=== PATIENT | female | born 1945 | race Caucasian/White ===

== ENCOUNTER → 2025-09-17 | Outpatient (CLI) | payer OTHER, SELFPAY ==
--- OUTSIDE RECORDS SUMMARY | 2025-09-17 06:48 | XMS RPT_ITS | CCD ---
Author Organization [facility] Care Team Providers Care Umbrella Tipper Name Role Phone ANIBAL CARTER Primary Care Physician [phone] Unavailable Primary Care Provider UnavailANIBAL Brumfield Primary Care Physician [phone] ZAINAB WILD MD Attending Unavailable ANIBAL CARTER Primary Care Unavailable ANIBAL CARTER Primary Care Unavailable ANIBAL CARTER Attending Unavailable ANIBAL CARTER Attending Unavailable ANIBAL CARTER Primary Care Unavailable ANIBAL CARTER Primary Care Unavailable ANIBAL CARTER Attending Unavailable ANIBAL CARTER Primary Care Unavailable ANIBAL CARTER Attending Unavailable STAICA STEWART MD Attending Unavailable ANIBAL CARTER Primary Care Unavailable ANIBAL QUIÑONES Referring Unavailable STACIA STEWART Primary Care Unavailable ANIBAL QUIÑONES Referring Unavailable STACIA STEWART Primary Care Unavailable Stacia Stewart MD Primary Care Provider [phone] ANIBAL CARTER Attending Unavailable ANIBAL CARTER Primary Care Unavailable Kathy Lovell Attending Provider ANIBAL CARTER Attending Unavailable ANIBAL CARTER Primary Care Unavailable ANIBAL CARTER Attending Unavailable ANIBAL CARTER Primary Care Unavailable ZAINAB WILD MD Attending Unavailable ANIBAL CARTER Primary Care Unavailable Kathy Jacobs Attending Unavailable Mica Araujo Attending Unavailable Mica Araujo Attending Unavailable Allergies Allergy Classification Reported Allergen(s) Allergy Type Date of Onset Reaction(s) Facility (8 sources) Bee/Wasp/Ant venom Allergy to [facility] Medications Current Medications Medication Drug Class(es) Dates Sig (Normalized) Sig (Original) aspirin 81 mg delayed release oral tablet (4 sources) Platelet Aggregation Inhibitor, Nonsteroidal Anti-inflammatory Drug Start: 05-10-2023 aspirin 81 mg oral delayed release tablet Dose : 81 mg = 1 tab(s), Oral, Daily, 0 Refill(s) Start Date: 05/10/23 Status: Ordered latanoprost 0.05 mg/ml ophthalmic solution (7 sources) Prostaglandin Analog Start: 05-10-2023 take 1 drop(s) into the eye(s) at bedtime latanoprost 0.005% ophthalmic solution INSTILL 1 DROP INTO EACH EYE AT BEDTIME Start Date: 05/10/23 Status: Ordered Medication Dispense Status: Completed Total Allowed Fills: 1 Fills Dispensed: 0 Magnesium (1 source) Start: 02-13-2021 Magnesium 250 mg tablet Dose : 250 mg = 1 tab(s), Oral, qDay, 0 Refill(s) Start Date: 02/13/21 Status: Ordered Multivitamin preparation (8 sources) Start: 02-13-2021 take 1 tablet by mouth once daily Multivitamin Dose = 1 tab(s), Oral, Daily, 0 Refill(s) Start Date: 02/13/21 Status: Ordered Medication Dispense Status: Completed Total Allowed Fills: 1 Fills Dispensed: 0 Start: 02-13-2021 take 1 tablet by francisco javier th once daily Multivitamin Dose = 1 tab(s), Oral, Daily, 0 Refill(s) Start Date: 02/13/21 Status: Ordered Repeat number: 1 Start: 02-13-2021 take 1 tablet by francisco javier th once daily Multivitamin Dose = 1 tab(s), Oral, Daily, 0 Refill(s) Start Date: 02/13/21 Status: Ordered Turmeric extract (8 sources) Start: 05-19-2021 turmeric 1000 mg oral capsule Dose : 1,000 mg = 1 cap(s), Oral, Daily, 0 Refill(s) Start Date: 05/19/21 Status: Ordered Medication Dispense Status: Completed Total Allowed Fills: 1 Fills Dispensed: 0 Start: 05-19-2021 turmeric 1000 mg oral capsule Dose : 1,000 mg = 1 cap(s), Oral, Daily, 0 Refill(s) Start Date: 05/19/21 Status: Ordered Repeat number: 1 Start: 05-19-2021 turmeric 1000 mg oral capsule Dose : 1,000 mg = 1 cap(s), Oral, Daily, 0 Refill(s) Start Date: 05/19/21 Status: Ordered vitamin b12 1 mg oral tablet (1 source) Vitamin B12 Start: 05-19-2021 Vitamin B12 10 00 mcg oral tablet Dose : 1,000 mcg = 1 tab(s), Oral, qDay, # 30 tab(s), 0 Refill(s) Start Date: 05/19/21 Status: Ordered Vitamin B12 1000 mcg oral tablet (7 sources) Start: 05-19-2021 Vitamin B12 10 00 mcg oral tablet Dose : 1,000 mcg = 1 tab(s), Oral, qDay, # 30 tab(s), 0 Refill(s) Start Date: 05/19/21 Status: Ordered Medication Dispense Status: Completed Quantity: 30.0 Unit: tab(s) Total Allowed Fills: 1 Fills Dispensed: 0 Start: 05-19-2021 Vitamin B12 10 00 mcg oral tablet Dose : 1,000 mcg = 1 tab(s), Oral, qDay, # 30 tab(s), 0 Refill(s) Start Date: 05/19/21 Status: Ordered Quantity: 30.0 Unit: tab(s) Repeat number: 1 Start: 05-19-2021 Vitamin B12 10 00 mcg oral tablet Dose : 1,000 mcg = 1 tab(s), Oral, qDay, # 30 tab(s), 0 Refill(s) Start Date: 05/19/21 Status: Ordered Vitamin D3 (8 sources) Start: 02-13-2021 Vitamin D3 Dos e : 1,000 unit(s) = 1 tab(s), Oral, Daily, 0 Refill(s) Start Date: 02/13/21 Status: Ordered Medication Dispense Status: Completed Total Allowed Fills: 1 Fills Dispensed: 0 Start: 02-13-2021 Vitamin D3 Dos e : 1,000 unit(s) = 1 tab(s), Oral, Daily, 0 Refill(s) Start Date: 02/13/21 Status: Ordered Repeat number: 1 Start: 02-13-2021 Vitamin D3 Dos e : 1,000 unit(s) = 1 tab(s), Oral, Daily, 0 Refill(s) Start Date: 02/13/21 Status: Ordered Completed/Discontinued Medications Medication Drug Class(es) Dates Sig (Normalized) Sig (Original) fluorouracil 50 mg/ml topical cream (1 source) Nucleoside Metabolic Inhibitor Start: 5 Fluorouracil 5 % cream Discontinued 1 NMA TOPICAL TWICE A DAY July 19, 2025 12:00am methylPREDNISolone 4 mg oral tablet (1 source) Corticosteroid Start: 5 Methylprednisolone 4 mg tablets,dose pack Discontinued mg PO As Directed July 19, 2025 12:00am Xarelto Starter Pack 15 mg-20 mg oral kit (1 source) Start: 1 End: 1 Xarelto Starter Pack 15 mg-20 mg oral kit Take as directed on pack, Oral, Daily, Take as directed on pack, # 1 packet(s), 0 Refill(s), Pharmacy: [id number], 155, cm, 02/13/21 1:18:00 EDT, Height, 58.8, kg, 02/13/21 1:18:00 EDT, Dosing Weight Start Date: 02/14/21 Stop Date: 03/16/21 Status: Ordered Problems Problem Classification Problem Date Documented Da te Episodic/Chronic Biliary tract disease (1 source) Calculus of gallbladder without cholecystitis without obstruction; Translations: [Calculus of gallbladder without cholecystitis without obstruction] Onset: 08-01-2025 Episodic Conduction disorders (7 sources) Left bundle branch block 05-10-2023 Chronic Diverticulosis and diverticulitis (1 source) Diverticulosis of large intestine without perforation or abscess without bleeding; Translations: [Diverticulosis of large intestine without perforation or abscess without bleeding] Onset: 08-01-2025 Chronic Genitourinary symptoms and ill-defined conditions (2 sources) Dysuria; Translations: [Dysuria] Onset: 09-04-2024 Episodic Heart valve disorders (8 sources) Mitral valve regurgitation 05-19-2021 Chronic Other diseases of bladder and urethra (1 source) Other specified disorders of bladder; Translations: [Other specified disorders of bladder] Onset: 08-01-2025 Chronic Other gastrointestinal disorders (1 source) Abdominal distension (gaseous); Translations: [Abdominal distension (gaseous)] Onset: 08-01-2025 Episodic Other liver diseases (1 source) Hepatomegaly, not elsewhere classified; Translations: [Hepatomegaly, not elsewhere classified] Onset: 08-01-2025 Episodic Other nervous system disorders (1 source) Anesthesia of skin; Translations: [Anesthesia of skin] Onset: 08-24-2025 Episodic Other nervous system disorders (1 source) Paresthesia of skin; Translations: [Paresthesia of skin] Onset: 08-24-2025 Episodic Other screening for suspected conditions (not mental disorders or infectious disease) (1 source) Encounter for screening mammogram for malignant neoplasm of breast; Translations: [Encounter for screening mammogram for malignant neoplasm of breast] Onset: 07-04-2024 Episodic Peripheral and visceral atherosclerosis (1 source) Atherosclerosis of aorta; Translations: [Atherosclerosis of aorta] Onset: 08-01-2025 Chronic Pulmonary heart disease (8 sources) Pulmonary embolism 05-19-2021 Episodic Spondylosis; intervertebral disc disorders; other back problems (2 sources) Spondylosis without myelopathy or radiculopathy, site unspecified; Translations: [Spondylosis, unspecified] Onset: 08-01-2025 Chronic Unclassified (2 sources) Encounter for general examination without complaint, suspected or reported diagnosis; Translations: [Encounter for general examination without complaint, suspected or reported diagnosis] Onset: 05-04-2023 Urinary tract infections (2 sources) Urinary tract infection, site not specified; Translations: [Urinary tract infection, site not specified] Onset: 08-13-2023 Episodic Varicose veins of lower extremity (1 source) Asymptomatic varicose veins of unspecified lower extremity; Translations: [Asymptomatic varicose veins of unspecified lower extremity] Onset: 08-24-2025 Episodic Results Test Name Value Interpretation Reference Range Facility Legal Billing Clerk Office Visit Reporton 09-13-2025 Legal Billing Clerk Office Visit Report [facility] [address], [address] [place] [address] OFFICE VISIT Date of Service: 09/13/25 MR#: [id number] Acct: [id number] Name: STACY OLIVO Rep #: [id number] : 1945 Provider: Dr. Mica owen MD Age/Sex: 80/F Location: [facility] Status: Signed Intake Vital Signs 09/13/25 15:36 Height 5 ft 1 in Weight: 132 lb 6 oz BMI 25.0 BP 178/96 H Intake Visit Reasons: Surgical Consult (PPA) *per Honeycomb Decapper Required: No Is patient in pain?: No Allergies No Known Allergies Allergy (Verified 09/13/25 15:12) Medications ???Medication ???Instructions ???Recorded ???Confirmed ???Type calcium 300 mg-D3 20 mcg-magnesium 1 tab PO QDAY 09/13/25 09/13/25 History 25 mg-coppr 0.5 zz-sewa-xzby tablet iron PO .every other day 09/13/25 Hist ory latanoprost 0.005 % eye drops 1 drp ophthalmic (eye) QPM 5 09/13/25 History wipkvvss-aejddluw-apihn acid 240 tab PO 09/13/25 09/13/25 History mcg-vit K1 150 mcg-herb 357 tablet (Alive Women's 50 Plus Ultra Multivitamin) redimind natural cognitive enhancer PO 09/13/25 History turmeric 400 mg capsule mg PO 09/13/25 09/13/25 History Is last menstrual period known: No Post menopausal: Yes Patient : No : No PFSH Medical History (Updated 09/13/25 @ 16:[address] Mica Araujo MD) Ganglion cyst Heart valve problem Tumors GERD (gastroesophageal reflux disease) Osteopenia Low calcium levels Glaucoma Gallstones Carpal tunnel syndrome Cataracts, bilateral Breast lump Pulmonary embolism UTI (urinary tract infection) Ankle fracture Arthritis Hx of heart valve insufficiency Surgical History (Updated 09/13/25 @ 15:25 by Kassandra Jean) History of bladder suspension procedure History of left oophorectomy Hx of removal of ovary Family History (Updated 09/13/25 @ 15:18 by Kassandra Jean) Mother Anemia Arthritis Glaucoma Brother Heart disease Hypertension Social History (Updated 09/13/25 @ 15:36 by Kassandra Jean) household members: spouse Smoking Status: Never smoker alcohol intake: current alcohol intake frequency: holidays/special occasions only substance use type: does not use what type of physical activity do you participate in: walking and swimming additional social history: Monica HPI Surgical Consult (PPA) *per Details: HPI: The patient is an 80-year-old female with a history of endometrial thickening, pulmonary embolism, and heart valve problem presenting for evaluation of endometrial thickening. Endometrial Thickening - Referred for evaluation of endometrial thickening. - Recent sonogram ordered by primary care provider, NIKHIL Acosta, revealed thickening of the endometrial lining. - Denies any vaginal bleeding or abnormal discharge. - Denies any bowel complaints, including nausea, vomiting, bloating, diarrhea, or constipation. - Denies any bladder issues, including burning on urination, pain on urination, or leaking. - Denies any swelling in the legs. 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 - Denies any chest pain or shortness of breath. - Denies any history of blood clotting disorders. Past Medical History - Endometrial Thickening - Pulmonary Embolism - Heart Valve Problem - Ankle Fracture Past Surgical History - Oophorectomy: One ovary removed due to benign tumors. - - D C: Multiple procedures during infertility treatment. Obstetric History - A0 - Three children: One adopted, one vaginal delivery, one . Family History - Denies family history of similar benign tumors. 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 - Spends 6 months of the year in [place]. 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 Normal [facility] US PELVIS NON-OB W/TRANSVAGI NALon 08-08-2025 US PELVIS NON-OB W/TRANSVAGINAL ORIGINAL EXAMINATION: Ultrasound pelvis, 08/07/2025 10:23 am transabdominal and transvaginal COMPARISON: CT 08/01/2025 TECHNIQUE: This report is based on interpretation of permanently recorded ultrasound images. HISTORY: ORDERING SYSTEM PROVIDED HISTORY: Reason for Exam: ENDOMETRIAL THICKENING ON CT SCAN, 80-year-old postmenopausal patient FINDINGS: The uterus is 6.3 x 2.4 x 4.7 cm. There is no myometrial mass seen. The endometrium is abnormal 11 mm in thickness with multiple small cystic foci within it. There are some areas of vascularity within the endometrium also.. Right ovary: Not visualized perhaps atrophic or obscured by bowel. Left ovary: Not seen surgically absent by given history. No pelvic free fluid is seen. IMPRESSION: Abnormal endometrium. Interpreted by: Jannie Ruiz MD Preliminary Report By: Jannie Ruiz MD Electronically signed By Jannie Ruiz MD Dictated Date: 08/08/2025 8:40:21 AM Prelim Date: 08/08/2025 8:41:56 AM Sign Date: 08/08/2025 8:41:56 AM Ordering Provider: ANIBAL QUIÑONES RP [facility] XR RIBS 2 VIEWS LEFTon 08-02 XR RIBS 2 VIEWS LEFT ORIGINAL EXAMINATION: 2 XRAY VIEWS OF THE LEFT RIBS08/01/2025 2:18 pm COMPARISON: 02/12/2021 HISTORY: ORDERING SYSTEM PROVIDED HISTORY: Reason for Exam: posterior/ inferior chest wall/regional pain FINDINGS: No rib fracture is demonstrated. IMPRESSION: No visible rib fracture. Interpreted by: Maverick Cr DO Preliminary Report By: Maverick Cr DO Electronically signed By Maverick Cr DO Dictated Date: 08/02/2025 9:24:53 AM Prelim Date: 08/02/2025 9:26:13 AM Sign Date: 08/02/2025 9:26:13 AM Ordering Provider: ANIBAL QUIÑONES RP Normal [facility] .Auto Diffon 08-01-2025 Basophil, Absolute 0.0 10 3/mcL Normal 0.0-0.3 [facility] Comment on above: Performed By: #### E SR, CRP, LIP, ADIFF, DIMER, CMP, CBC, ANEU, GFR, NORMA, TROPHS #### [facility] [address] [place], [place] [address] Basophils/100 WBC (Bld) 0.8 % Normal 0.0-2.5 [facility] Comment on above: Performed By: #### E SR, CRP, LIP, ADIFF, DIMER, CMP, CBC, ANEU, GFR, NORMA, TROPHS #### [address] [address] Eosinophil, Absolute 0.1 10 3/mcL Normal 0.0-0.7 [facility] Comment on above: Performed By: #### E SR, CRP, LIP, ADIFF, DIMER, CMP, CBC, ANEU, GFR, NORMA, TROPHS #### [address] [address] Eosinophils/100 WBC (Bld) 1.9 % Normal 0.0-6.0 [facility] Comment on above: Performed By: #### E SR, CRP, LIP, ADIFF, DIMER, CMP, CBC, ANEU, GFR, NORMA, TROPHS #### [address] [address] Lymphocyte, Absolute 1.2 10 3/mcL Normal 0.9-4.3 [facility] Comment on above: Performed By: #### E SR, CRP, LIP, ADIFF, DIMER, CMP, CBC, ANEU, GFR, NORMA, TROPHS #### [address] [address] Lymphocytes/100 WBC (Bld) 24.5 % Normal 20.0-40.0 [facility] Comment on above: Performed By: #### E SR, CRP, LIP, ADIFF, DIMER, CMP, CBC, ANEU, GFR, NORMA, TROPHS #### [address] [address] Monocyte, Absolute 0.3 10 3/mcL Normal 0.1-1.4 [facility] Comment on above: Performed By: #### E SR, CRP, LIP, ADIFF, DIMER, CMP, CBC, ANEU, GFR, NORMA, TROPHS #### [address] [address] Monocytes/100 WBC (Bld) 7.0 % Normal 2.0-13.0 [facility] Comment on above: Performed By: #### E SR, CRP, LIP, ADIFF, DIMER, CMP, CBC, ANEU, GFR, NORMA, TROPHS #### [place] [address] [place], [place] [address] Neutrophils/100 WBC (Bld) 65.8 % Normal 50.0-75.0 [facility] Comment on above: Performed By: #### E SR, CRP, LIP, ADIFF, DIMER, CMP, CBC, ANEU, GFR, NORMA, TROPHS #### [place] [address] [place], [place] [address] .GFRon 08-01-2025 Estimated Glomerular Filtration Rate 80 ml/min/1.73sqm Normal [facility] Comment on above: Result Comment: Stages of Chronic Kidney Disease (CKD) Stage Description eGFR(ml/min/1.73 sq.m.) CKD 1 Normal kidney function or >=90 normal kindney function with possible kidney damage (ex. Proteinuria) CKD 2 Kidney damage with mild loss 60-89 of kidney function CKD 3a Mild to moderate loss of kidney 45-59 function CKD 3b Moderate to severe loss of 30-44 of kindey function CKD 4 Severe loss of kidney function 15-29 CKD 5 Kidney failure <15 Note: (go live 2024) the eGFR calculation was updated to the 2020 CKD-EPI creatinine equation without a race factor to calculate the eGFR results. Performed By: #### E SR, CRP, LIP, ADIFF, DIMER, CMP, CBC, ANEU, GFR, NORMA, TROPHS ####[facility] [place], [place] [address] .NEUABSon 08-01-2025 Neutrophil, Absolute 3.1 10 3/mcL Normal 2.3-8.1 [facility] Comment on above: Performed By: #### E SR, CRP, LIP, ADIFF, DIMER, CMP, CBC, ANEU, GFR, NORMA, TROPHS #### [place] [address] [place], [place] [address] AMYon 08-01-2025 Amylase [Catalytic activity/Vol] 36 U/L Normal 25-115 [facility] Comment on above: Performed By: #### E SR, CRP, LIP, ADIFF, DIMER, CMP, CBC, ANEU, GFR, NORMA, TROPHS #### [address] [address] CBCon 08-01-2025 Erythrocyte distribution width (RBC) [Ratio] 14.3 % Normal 11.5-15.5 [facility] Comment on above: Performed By: #### E SR, CRP, LIP, ADIFF, DIMER, CMP, CBC, ANEU, GFR, NORMA, TROPHS #### [address] [address] Hematocrit (Bld) [Volume fraction] 34.5 % Normal 34.0-46.0 [facility] Comment on above: Performed By: #### E SR, CRP, LIP, ADIFF, DIMER, CMP, CBC, ANEU, GFR, NORMA, TROPHS #### [place] [address] Hgb 11.8 G/dL Low 12.0-16.0 [facility] Comment on above: Performed By: #### E SR, CRP, LIP, ADIFF, DIMER, CMP, CBC, ANEU, GFR, NORMA, TROPHS #### [address] [address] MCH (RBC) [Entitic mass] 30.5 pg Normal 27.0-33.0 [facility] Comment on above: Performed By: #### E SR, CRP, LIP, ADIFF, DIMER, CMP, CBC, ANEU, GFR, NORMA, TROPHS #### [address] [address] MCHC 34.3 G/dL Normal 32.0-36.0 [facility] Comment on above: Performed By: #### E SR, CRP, LIP, ADIFF, DIMER, CMP, CBC, ANEU, GFR, NORMA, TROPHS #### [address] [address] MCV (RBC) [Entitic vol] 88.9 fL Normal 80.0-99.0 [facility] Comment on above: Performed By: #### E SR, CRP, LIP, ADIFF, DIMER, CMP, CBC, ANEU, GFR, NORMA, TROPHS #### [address] [address] Platelet 238 10 3/mcL Normal 150-450 [facility] Comment on above: Performed By: #### E SR, CRP, LIP, ADIFF, DIMER, CMP, CBC, ANEU, GFR, NORMA, TROPHS #### [address] [address] Platelet mean volume (Bld) [Entitic vol] 7.7 fL Normal 6.6-10.5 [facility] Comment on above: Performed By: #### E SR, CRP, LIP, ADIFF, DIMER, CMP, CBC, ANEU, GFR, NORMA, TROPHS #### [address] [address] RBC 3.88 10 6/mcL Low 4.10-5.30 [facility] Comment on above: Performed By: #### E SR, CRP, LIP, ADIFF, DIMER, CMP, CBC, ANEU, GFR, NORMA, TROPHS #### [address] [address] WBC 4.7 10 3/mcL Normal 4.5-10.8 [facility] Comment on above: Performed By: #### E SR, CRP, LIP, ADIFF, DIMER, CMP, CBC, ANEU, GFR, NORMA, TROPHS #### [address] [address] CMPon 08-01-2025 Albumin Level 3.5 G/dL Normal 3.4-4.8 [facility] Comment on above: Performed By: #### E SR, CRP, LIP, ADIFF, DIMER, CMP, CBC, ANEU, GFR, NORMA, TROPHS ####[address] [address] Albumin/Globulin [Mass ratio] 1.0 {ratio} Low 1.1-2.5 [facility] Comment on above: Performed By: #### E SR, CRP, LIP, ADIFF, DIMER, CMP, CBC, ANEU, GFR, NORMA, TROPHS ####[place] [id number] ALP [Catalytic activity/Vol] 93 U/L Normal 40-135 [facility] Comment on above: Performed By: #### E SR, CRP, LIP, ADIFF, DIMER, CMP, CBC, ANEU, GFR, NOMRA, TROPHS ####[place] [address] [place] [address] ALT [Catalytic activity/Vol] 24 U/L Normal 14-59 [facility] Comment on above: Performed By: #### E SR, CRP, LIP, ADIFF, DIMER, CMP, CBC, ANEU, GFR, NORMA, TROPHS ####[place] [address] AST [Catalytic activity/Vol] 16 U/L Normal 10-40 [facility] Comment on above: Performed By: #### E SR, CRP, LIP, ADIFF, DIMER, CMP, CBC, ANEU, GFR, NORMA, TROPHS ####[place] [address] Bili Total 0.6 mg/dL Normal 0.2-1.0 [facility] Comment on above: Result Comment: Use of this assay is not recommended for patients undergoing treatment with eltrombopag due to the potential for falsely elevated results. Performed By: #### E SR, CRP, LIP, ADIFF, DIMER, CMP, CBC, ANEU, GFR, NORMA, TROPHS ####[place] [address] BUN/Creatinine Ratio 23 ratio Normal 7-27 [facility] Comment on above: Performed By: #### E SR, CRP, LIP, ADIFF, DIMER, CMP, CBC, ANEU, GFR, NORMA, TROPHS ####[place] [address] [place] [address] Calcium [Mass/Vol] 9.6 mg/dL Normal 8.4-10.2 [facility] Comment on above: Performed By: #### E SR, CRP, LIP, ADIFF, DIMER, CMP, CBC, ANEU, GFR, NORMA, TROPHS ####[address] [address] Chloride [Moles/Vol] 106 mmol/L Normal 98-107 [facility] Comment on above: Performed By: #### E SR, CRP, LIP, ADIFF, DIMER, CMP, CBC, ANEU, GFR, NORMA, TROPHS ####[place] [address] CO2 [Moles/Vol] 31 mmol/L Normal 23-31 [facility] Comment on above: Performed By: #### E SR, CRP, LIP, ADIFF, DIMER, CMP, CBC, ANEU, GFR, NORMA, TROPHS ####[place] [address] [place] [address] Creatinine [Mass/Vol] 0.75 mg/dL Normal 0.51-0.95 [facility] Comment on above: Performed By: #### E SR, CRP, LIP, ADIFF, DIMER, CMP, CBC, ANEU, GFR, NORMA, TROPHS ####[place] [address] Electrolyte Balance 5.0 mEq/L Normal 4.0-15.0 [facility] Comment on above: Performed By: #### E SR, CRP, LIP, ADIFF, DIMER, CMP, CBC, ANEU, GFR, NORMA, TROPHS ####[place] [address] Globulin 3.5 G/dL Normal 2.7-4.4 [facility] Comment on above: Performed By: #### E SR, CRP, LIP, ADIFF, DIMER, CMP, CBC, ANEU, GFR, NORMA, TROPHS ####[place] [address] Glucose [Mass/Vol] 195 mg/dL High 83-110 [facility] Comment on above: Performed By: #### E SR, CRP, LIP, ADIFF, DIMER, CMP, CBC, ANEU, GFR, NORMA, TROPHS ####[address] [place], [place] [address] Potassium [Moles/Vol] 3.7 mmol/L Normal 3.5-5.1 [facility] Comment on above: Performed By: #### E SR, CRP, LIP, ADIFF, DIMER, CMP, CBC, ANEU, GFR, NORMA, TROPHS ####[address] [address] Sodium [Moles/Vol] 142 mmol/L Normal 136-145 [facility] Comment on above: Performed By: #### E SR, CRP, LIP, ADIFF, DIMER, CMP, CBC, ANEU, GFR, NORMA, TROPHS ####[address] [address] Total Protein 7.0 G/dL Normal 6.4-8.2 [facility] Comment on above: Performed By: #### E SR, CRP, LIP, ADIFF, DIMER, CMP, CBC, ANEU, GFR, NORMA, TROPHS ####[address] [address] Urea nitrogen [Mass/Vol] 17 mg/dL Normal 7-18 [facility] Comment on above: Performed By: #### E SR, CRP, LIP, ADIFF, DIMER, CMP, CBC, ANEU, GFR, NORMA, TROPHS ####[place] [address] [place], [place] [address] CRPon 08-01-2025 C-Reactive Protein 0.4 mg/dL High 0.0-0.3 [facility] Comment on above: Performed By: #### E SR, CRP, LIP, ADIFF, DIMER, CMP, CBC, ANEU, GFR, NORMA, TROPHS #### [address] [address] [address] ABD/PELVIS W/ IV CONTRAST ONLYon 08-01-2025 CT ABD/PELVIS W/ IV CONTRAST ONLY ORIGINAL EXAMINATION: CT OF THE ABDOMEN AND PELVIS WITH CONTRAST 08/01/2025 5:21 pm TECHNIQUE: CT of the abdomen and pelvis was performed with the administration of intravenous contrast. Multiplanar reformatted images are provided for review. Automated exposure control, iterative reconstruction, and/or weight based adjustment of the mA/kV was utilized to reduce the radiation dose to as low as reasonably achievable. COMPARISON: None. HISTORY: ORDERING SYSTEM PROVIDED HISTORY: Reason for Exam: LT UPPER QUAD PAIN FINDINGS: Visualized portion of the lower chest demonstrates no acute abnormality. The liver is enlarged measuring up to 19 cm. No abnormal contour or enhancement. Gallbladder is largely decompressed with layering cholelithiasis. The spleen, pancreas and adrenal glands are unremarkable. Kidneys are within normal limits for size and enhance symmetrically. No hydroureteronephrosis or nephroureterolithiasis bilaterally. The urinary bladder is incompletely distended. Although somewhat limited given modality, there is suspected thickening of the endometrium common usual for the patient's age. The stomach is incompletely distended. Bowel gas is noted within nondilated loops to the level of the rectum without evidence of obstruction. The appendix is visualized and unremarkable. Scattered diverticula are appreciated within the sigmoid colon without evidence of acute inflammatory change. No free air or fluid. No abdominal or pelvic adenopathy. The abdominal aorta is nonaneurysmal in size with mild to moderate atherosclerotic changes. No acute osseous or soft tissue abnormalities. IMPRESSION: 1. No acute intra-abdominal or pelvic abnormality. 2. Hepatomegaly. 3. Cholelithiasis without evidence of acute cholecystitis. 4. Diverticulosis without evidence of acute diverticulitis. 5. Although somewhat limited given modality, there is suspected thickening of the endometrium, unusual for the patient's age. Recommend further evaluation with prompt outpatient pelvic ultrasound. Interpreted by: Shelley Romero Preliminary Report By: Shelley Romero Electronically signed By Shelley Romero Dictated Date: 08/01/2025 6:10:07 PM Prelim Date: 08/01/2025 6:17:04 PM Sign Date: 08/01/2025 6:17:04 PM Ordering Provider: ANIBAL QUIÑONES RP Normal [facility] DIMERon 08-01-2025 D-Dimer 287 ng/mL D-DU High 0-230 [facility] Comment on above: Result Comment: Resu lts reported in D-DU ng/mL. Positive for D-dimer. A positive D-Dimer may occur in the following: DVT, PE, DIC, Trauma, Cancer, Sepsis, , Rheumatoid arthritis, Myocardial infarction and Cirrhosis. The presence of Rheumatoid Factor and HAMA (human mouse antibody) produces an overestimation of test results. The result of the D-Dimer test should be evaluated in the context of all the clinical and laboratory data available. In those instances where the laboratory result does not agree with the clinical evaluation, additional tests should be performed accordingly. If the D-Dimer result is used to exclude DVT or PE, the recommended cutoff value is less than 230 ng/mL. The D-Dimer result should not be used alone to rule in DVT/PE, but should be used in conjunction with a clinical pretest probability (PTP)assessment model to exclude venous thromboembolism (VTE) in patients suspected of deep venous thrombosis (DVT) and pulmonary embolism (PE). Performed By: #### E SR, CRP, LIP, ADIFF, DIMER, CMP, CBC, ANEU, GFR, NORMA, TROPHS #### [address] [address] ESRon 08-01-2025 Erythrocyte Sed Rate 6 mm/hr Normal 0-30 [facility] Comment on above: Performed By: #### E SR, CRP, LIP, ADIFF, DIMER, CMP, CBC, ANEU, GFR, NORMA, TROPHS #### [address] [address] LABORATORYOrdered By: SYSTEM SYSTEM on 08-01-2025 Albumin BCP dye [Mass/Vol] 3.5 G/dL Normal 3.4 - 4.8 G/dL AO ADM SS Albumin/Globulin [Mass ratio] 1.0 {ratio} Low 1.1 - 2.5 ratio AO ADM SS ALP [Catalytic activity/Vol] 93 U/L Normal 40 - 135 U/L AO ADM SS ALT With P-5'-P [Catalytic activity/Vol] 24 U/L Normal 14 - 59 U/L AO ADM SS Amylase [Catalytic activity/Vol] 36 U/L Normal 25 - 115 U/L AO ADM SS AST With P-5'-P [Catalytic activity/Vol] 16 U/L Normal 10 - 40 U/L AO ADM SS Basophils (Bld) [#/Vol] 0.0 103/mcL Normal 0.0 - 0.3 10^3/mcL AO Workflow SS Basophils/100 WBC (Bld) 0.8 % Normal 0.0 - 2.5 % AO Workflow SS Bilirubin [Mass/Vol] 0.6 mg/dL Normal 0.2 - 1 .0 mg/dL AO ADM SS Comment on above: Interpretive Data: U se of this assay is not recommended for patients undergoing treatment with eltrombopag due to the potential for falsely elevated results. Calcium [Mass/Vol] 9.6 mg/dL Normal 8.4 - 10. 2 mg/dL AO ADM SS Chloride [Moles/Vol] 106 mmol/L Normal 98 - 10 7 mmol/L AO ADM SS CO2 [Moles/Vol] 31 mmol/L Normal 23 - 31 mmol/L AO ADM SS Creatinine [Mass/Vol] 0.75 mg/dL Normal 0.51 - 0.95 mg/dL AO ADM SS CRP [Mass/Vol] 0.4 mg/dL High 0.0 - 0.3 mg/dL AO ADM SS Electrolyte Balance 5.0 mEq/L Normal 4.0 - 15 .0 mEq/L AO ADM SS Eosinophil, Absolute 0.1 103/mcL Normal 0.0 - 0 .7 10^3/mcL AO Workflow SS Eosinophils/100 WBC (Bld) 1.9 % Normal 0.0 - 6.0 % AO Workflow SS Erythrocyte distribution width (RBC) [Ratio] 14.3 % Normal 11.5 - 15.5 % AO Workflow SS Estimated Glomerular Filtration Rate 80 ml/min/1.73sqm Invalid Interpretation Code AO Chemistry S Comment on above: Interpretive Data: Stages of Chronic Kidney Disease (CKD) Stage Description eGFR(ml/min/1.73 sq.m.) CKD 1 Normal kidney function or >=90 normal kindney function with possible kidney damage (ex. Proteinuria) CKD 2 Kidney damage with mild loss 60-89 of kidney function CKD 3a Mild to moderate loss of kidney 45-59 function CKD 3b Moderate to severe loss of 30-44 of kindey function CKD 4 Severe loss of kidney function 15-29 CKD 5 Kidney failure <15 Note: (go live 2024) the eGFR calculation was updated to the 2020 CKD-EPI creatinine equation without a race factor to calculate the eGFR results. Fibrin D-dimer DDU (PPP) [Mass/Vol] 287 ng/mL D-DU High 0 - 230 ng/mL D-DU AO [facility] SS Comment on above: Result Comment: Resu lts reported in D-DU ng/mL. Positive for D-dimer. A positive D-Dimer may occur in the following: DVT, PE, DIC, Trauma, Cancer, Sepsis, , Rheumatoid arthritis, Myocardial infarction and Cirrhosis. The presence of Rheumatoid Factor and HAMA (human mouse antibody) produces an overestimation of test results. Interpretive Data: T he result of the D-Dimer test should be evaluated in the context of all the clinical and laboratory data available. In those instances where the laboratory result does not agree with the clinical evaluation, additional tests should be performed accordingly. If the D-Dimer result is used to exclude DVT or PE, the recommended cutoff value is less than 230 ng/mL. The D-Dimer result should not be used alone to rule in DVT/PE, but should be used in conjunction with a clinical pretest probability (PTP)assessment model to exclude venous thromboembolism (VTE) in patients suspected of deep venous thrombosis (DVT) and pulmonary embolism (PE). Globulin 3.5 G/dL Normal 2.7 - 4.4 G/dL AO ADM SS Glucose [Mass/Vol] 195 mg/dL High 83 - 110 mg/dL AO ADM SS Hematocrit (Bld) [Volume fraction] 34.5 % Normal 34.0 - 46.0 % AO Workflow SS Hemoglobin (Bld) [Mass/Vol] 11.8 G/dL Low 12.0 - 16.0 G/dL AO Workflow SS Lipase [Catalytic activity/Vol] 35 U/L Normal 16 - 77 U/L AO ADM SS Lymphocytes (Bld) [#/Vol] 1.2 103/mcL Normal 0.9 - 4.3 10^3/mcL AO Workflow SS Lymphocytes/100 WBC (Bld) 24.5 % Normal 20.0 - 40.0 % AO Workflow SS MCH (RBC) [Entitic mass] 30.5 pg Normal 27.0 - 33.0 pg AO Workflow SS MCHC 34.3 G/dL Normal 32.0 - 36.0 G/dL AO Workflow SS MCV (RBC) [Entitic vol] 88.9 fL Normal 80.0 - 99.0 fL AO Workflow SS Monocytes (Bld) [#/Vol] 0.3 103/mcL Normal 0.1 - 1.4 10^3/mcL AO Workflow SS Monocytes/100 WBC (Bld) 7.0 % Normal 2.0 - 13.0 % AO Workflow SS Neutrophils (Bld) [#/Vol] 3.1 103/mcL Normal 2.3 - 8.1 10^3/mcL AO Workflow SS Neutrophils/100 WBC (Bld) 65.8 % Normal 50.0 - 75.0 % AO Workflow SS Platelet mean volume (Bld) [Entitic vol] 7.7 fL Normal 6.6 - 10.5 fL AO Workflow SS Platelets (Bld) [#/Vol] 238 103/mcL Normal 150 - 450 10^3/mcL AO Workflow SS Potassium [Moles/Vol] 3.7 mmol/L Normal 3.5 - 5.1 mmol/L AO ADM SS Protein [Mass/Vol] 7.0 G/dL Normal 6.4 - 8.2 G/dL AO ADM SS RBC (Bld) [#/Vol] 3.88 106/mcL Low 4.10 - 5.3 0 10^6/mcL AO Workflow SS Sodium [Moles/Vol] 142 mmol/L Normal 136 - 145 mmol/L AO ADM SS Troponin I.cardiac DL <= 0.01 ng/mL [Mass/Vol] 9 ng/L Normal 0 - 51 ng/L AO ADM SS Comment on above: Interpretive Data: H igh Sensitive Troponin I Reference Ranges: Female: 0-51 ng/L Male: 0-76 ng/L Testing performed on [employer] using a homogeneous sandwich chemiluminescent immunoassay based on [employer] technology. Urea nitrogen [Mass/Vol] 17 mg/dL Normal 7 - 18 mg/dL AO ADM SS Urea nitrogen/Creatinine [Mass ratio] 23 ratio Normal 7 - 27 ratio AO ADM SS WBC (Bld) [#/Vol] 4.7 103/mcL Normal 4.5 - 10.8 10^3/mcL AO Workflow SS LABORATORYOrdered By: Munir Bolanos on 08-01-2025 ESR Photometric method (Bld) [Velocity] 6 mm/hr Normal 0 - 30 mm/hr AO Man Heme SS LIPon 08-01-2025 Lipase Level 35 U/L Normal 16-77 [facility] Comment on above: Performed By: #### E SR, CRP, LIP, ADIFF, DIMER, CMP, CBC, ANEU, GFR, NORMA, TROPHS ####[facility] [place], [place] [address] TROPHSon 08-01-2025 High Sensitivity Troponin I 9 ng/L Normal 0-51 [facility] Comment on above: Result Comment: High Sensitive Troponin I Reference Ranges: Female: 0-51 ng/L Male: 0-76 ng/L Testing performed on [employer]ension [employer] using a homogeneous sandwich chemiluminescent immunoassay based on [employer] technology. Performed By: #### E SR, CRP, LIP, ADIFF, DIMER, CMP, CBC, ANEU, GFR, NORMA, TROPHS #### [id number] [place], [place] [address] XR CHEST 2 VIEWSon XR CHEST 2 VIEWS ORIGINAL EXAMINATION: TWO XRAY VIEWS OF THE CHEST08/01/2025 2:19 pm COMPARISON: Chest x-ray 02/12/2021 HISTORY: ORDERING SYSTEM PROVIDED HISTORY: Reason for Exam: posterior/ inferior chest wall/regional pain FINDINGS: Cardiomediastinal contours are within normal limits. Aortic calcification is seen. There is no pneumothorax or pleural effusion. No obvious acute displaced rib fracture. Degenerative changes of the spine. There is no pleural effusion or pneumothorax. No focal consolidation is seen. IMPRESSION: No acute cardiopulmonary process. I have personally reviewed the images of this examination and agree with the resident's findings and interpretation. Interpreted by: Jannie Ruiz MD Preliminary Report By: Maverick Gonsales Electronically signed By Jannie Ruiz MD Dictated Date: 08/01/2025 3:08:29 PM Prelim Date: 08/01/2025 4:51:23 PM Sign Date: 08/01/2025 4:51:23 PM Ordering Provider: ANIBAL Maria [facility] MR/BMSFrank 07-19-2025 MR/BMS.BVS [facility] Vascular Surgery [address] [place] [address] OFFICE VISIT Date of Service: 07/19/25 MR#: [id number] Acct: [id number] Name: Stacy Olivo Rep #: [id number] : 1945 Provider: NIKHIL Maldonado Age/Sex: 80/F Location: [facility] Status: Signed Intake Vital Signs 07/19/25 10:24 Weight: 132 lb BP 157/89 H Blood Pressure Location Lt brachial Position Sitting Respiration 14 Pulse 71 Pulse Source Monitor Temp 97.8 F Temp Source Temporal Pulse Oximetry (%) 96 Oxygen Delivery Method room air Intake Visit Reasons: Varicose veins Is patient in pain?: Yes Allergies No Known Allergies Allergy (Verified 07/19/25 10:26) Medications ???Medication ???Instructions ???Recorded ???Confirmed ???Type fluorouracil 5 % topical cream 1 applic topical BID 07/19/2507/09 History methylprednisolone 4 mg tablets in mg PO DIRECTED 07/19/2507/19 History a dose pack Is last menstrual period known: No Post menopausal: Yes Patient : No Have you fallen in the past year?: No PFSH Medical History (Updated 07/19/25 @ 13:30 by NIKHIL Maldonado) Hx of heart valve insufficiency Surgical History (Updated 07/19/25 @ 10:22 by Joanna Rivas) Hx of removal of ovary Family History (Updated 07/19/25 @ 10:24 by Joanna Rivas) Other Asthma CAD (coronary artery disease) Cancer Diabetes Heart disease Myocardial infarction Social History (Updated 07/19/25 @ 10:24 by Joanna Rivas) Smoking Status: Never smoker HPI HPI HPI: Stacy Olivo, is a 80 F who presents to the office today with primary complaint of numbness into her bilateral 1st toes. The numbness is intermittent and she notices it more with prolonged sitting, does not seem to be provoked by exercise. She also complains of intermittent (happens once a week at most, can go weeks without it) cramping in her R calf which typically occurs at night and improves with ambulation/massage. She denies claudication or wounds. She denies any history of PAD. She reports a prior history of sclerotherapy in the R leg; she has some reticular veins and small varicosities which are not particularly bothersome to her at present. She does not report any swelling. She does not currently wear any compression. ROS General General: No weight change, appetite, fatigue, colon cancer, breast cancer or weakness HEENT HEENT: No difficulty swallowing, eye injury, eye surgery, swollen glands or hoarseness Endo Endocrine: No thyroid disease, diabetes mellitus, thyroid cancer, Hair loss, heat intolerance or cold intolerance Skin Skin: No rash or changing moles Musc Musculoskeletal: Yes arthritis; No back problems, rheumatoid arthritis, gout or joint pain Cardio Cardiovascular: No murmur, pacemaker, heart disease, atrial fibrillation, high blood pressure, heart attack, heart stent, palpitations, shortness of breath with exertion or chest pain Psych Psychiatric: No depression, anxiety or hearing voices Resp Respiratory: No shortness of breath, No sleep apnea, No cough, No COPD, No asthma, No emphysema and No wheezing Gastro Gastrointestinal: No abdominal pain, No nausea or vomiting, No diarrhea, No constipation, No blood in stool, No acid reflux, No hemorrhoids, No ulcers, No gallbladder problem and No black,tarry stools Manuel Hematologic: No blood thinners, No blood disorders, No bleeding, No anemia and No blood clots Neuro Neurologic: No system reviewed and no additional complaints, except as documented, No as per HPI, No abnormal gait, No abnormal hearing, No abnormal movements, No abnormal speech, No behavioral changes, No burning sensations, No confusion, No convulsions, No disequilibrium, No dizziness, No localized weakness, No frequent falls, No headache(s), No lack of coordination, No loss of vision, No memory loss, Yes numbness, No other visual disturbances, No radicular pain, No restless legs, No sensory deficit, No syncope, Yes tingling, No tremor(s), No weakness and No other Exam Const General: cooperative, healthy appearing, comfortable and no acute distress Nutritional Appearance: average body habitus Orientation: alert, awake and oriented x3 [facility] Head: normocephalic and atraumatic Ears: hearing grossly normal bilaterally and external ears normal Nose: external nose normal Eyes General: appearance normal, both eyes and all related structures Neck Neck: normal visual inspection Resp Effort Inspection: normal respiratory effort, able to speak in complete sentences, no grunting, not labored and no stridor Cardio Rate: regular rate Rhythm: regular rhythm Skin General: no rashes or lesions noted Trauma: no lacerations or abrasions Wounds: no wounds Neuro General: moves all (more content not included)... Normal [facility] Breast Screeningon 2023 IMPRESSION: NEGATIVE There is no mammographic evidence of malignancy. A 1 year screening mammogram is recommended. Hue Espinal M.D. er/penrad:07/12/2024 15:39:50 Electric Meter Installer(s): Vashti Epstein, [facility] letter sent: Normal over 40 Mammogram BI-RADS: Category 1: Negative Multiple national specialty organizations have released breast cancer screening guidelines for women at average risk for developing breast cancer - guidelines that are based on both evidence and opinion, yet differ on when to start and how often to screen for breast cancer. With representation from Breast Imaging, Internal Medicine, Women's Health, Family Medicine, and Medical/Surgical Oncology, the [facility] has carefully reviewed the data and reached the following consensus: 1) All women should engage in shared decision-making with their providers to decide when to start and how often to screen; 2) All women should have the opportunity to start screening mammography at age 40; 3) For women ages 45-55, we recommend annual screening mammograms; 4) For women ages 55 and over, we support both the transition from an annual to a biennial interval if this aligns more with patient's values and preferences, or continuation with annual screening; 5) All women should discuss with their providers when to stop screening mammograms. Framing And Hanging: Khris Transcribe Date/Time: Jul 04 2024 11:02A Dictated by : HUE ESPINAL MD This examination was interpreted and the report reviewed and electronically signed by: HUE ESPINAL MD on Jul 12 2024 3:39PM EST [facility] * * *Final Report* * * DATE OF EXAM: Jul 04 2024 11:16AM [facility] - [facility] SCREENING / PROCEDURE REASON: [id number] SCREENING MAMMOGRAM AMAURY WITH CAD * * * * Physician Interpretation * * * * #[id number] - BETH SCREENING BILATERAL DIGITAL SCREENING MAMMOGRAM WITH CAD: 07/04/2024 HISTORY: [id number] Screening Mammogram Amaury With Cad. RESULT: TECHNIQUE: The study was acquired using full field digital technology and interpreted from soft copy. Current study was also evaluated with a Computer Aided Detection (CAD). Comparison is made to exams dated: 06/29/2023 mammogram and 09/26/2021 mammogram - [facility]. The breasts are almost entirely fatty. No significant masses, calcifications, or other findings are seen in either breast. There has been no significant interval change. [facility] Provider, Romel Shaw - 07/13/2024 * * *Final Report* * * DATE OF EXAM: Jul 04 2024 11:16AM [facility] - [facility] SCREENING / PROCEDURE REASON: [id number] SCREENING MAMMOGRAM AMAURY WITH CAD * * * * Physician Interpretation * * * * #[id number] - BETH SCREENING BILATERAL DIGITAL SCREENING MAMMOGRAM WITH CAD: 07/04/2024 HISTORY: [id number] Screening Mammogram Amaury With Cad. RESULT: TECHNIQUE: The study was acquired using full field digital technology and interpreted from soft copy. Current study was also evaluated with a Computer Aided Detection (CAD). Comparison is made to exams dated: 06/29/2023 mammogram and 09/26/2021 mammogram - [facility]. The breasts are almost entirely fatty. No significant masses, calcifications, or other findings are seen in either breast. There has been no significant interval change. IMPRESSION IMPRESSION: NEGATIVE There is no mammographic evidence of malignancy. A 1 year screening mammogram is recommended. Hue blanc/khris:07/12/2024 15:39:50 Electric Meter Installer(s): Vashti Epstein, [facility] letter sent: Normal over 40 Mammogram BI-RADS: Category 1: Negative Multiple national specialty organizations have released breast cancer screening guidelines for women at average risk for developing breast cancer - guidelines that are based on both evidence and opinion, yet differ on when to start and how often to screen for breast cancer. With representation from Breast Imaging, Internal Medicine, Women's Health, Family Medicine, and Medical/Surgical Oncology, the [facility] has carefully reviewed the data and reached the following consensus: 1) All women should engage in shared decision-making with their providers to decide when to start and how often to screen; 2) All women should have the opportunity to start screening mammography at age 40; 3) For women ages 45-55, we recommend annual screening mammograms; 4) For women ages 55 and over, we support both the transition from an annual to a biennial interval if this aligns more with patient's values and preferences, or continuation with annual screening; 5) All women should discuss with their providers when to stop screening mammograms. Framing And Hanging: Khris Transcribe Date/Time: Jul 04 2024 11:02A Dictated by : HUE ESPINAL MD This examination was interpreted and the report reviewed and electronically signed by: HUE ESPINAL MD on Jul 12 2024 3:39PM EST [facility] MG Breast ScreeningOrdered B y: [facility] Provider on 07-13-2024 [facility] CNCOon 07-12-2024 [facility] HNO ID: [id number] Author: COORDINATOR, MAMMOGRAPHY, ? Service: ? Author Type: Physician Type: Letter Filed: 07/12/2024 15:39 Note Text: July 13, 2024 PID: [id number] [address] [place] [address] Dear Ms. Olivo, We are pleased to inform you that the results of your recent breast imaging exam on 07/04/2024 are normal. Breast tissue can be either dense or not dense. Dense tissue makes it harder to find breast cancer on a mammogram and also raises the risk of developing breast cancer. Your breast tissue is not dense. Talk to your healthcare provider about breast density, risks for breast cancer, and your individual situation. Early detection of cancer is very important. We also understand recommendations regarding breast cancer screening are controversial. Please discuss with your primary care provider which strategy is best for you and whether a mammogram is right for you. Your imaging studies and report will be kept on file at [facility] as part of your permanent medical record and are available for your continuing care. Thank you for allowing us to help in meeting your health care needs. Sincerely, Dr. Espinal Interpreting Radiologist [facility] (Normal over 40) Normal [facility] DXA Skeletal system.axial Vi ews for bone densityOrdered By: [facility] Provider on 07-05-2024 LOWEST T-SCORE -2.2 [facility] DXA Skeletal system.axial Vi ews for bone densityon 07-05-2024 IMPRESSION: THE LOWEST T-SCORE IS -2.2 IN THE LEFT FOREARM 1) DIAGNOSIS (based on BMD alone): OSTEOPENIA Caution: Medical conditions other than osteoporosis may cause low bone density, such as osteomalacia or renal osteodystrophy. Clinical correlation is necessary. 2) FRACTURE RISK (based on FRAX): 10-year absolute fracture risk: - major osteoporotic fracture = 15 % - hip fracture = 4.2 % - A diagnosis of Osteoporosis, a 10 year probability of hip fracture greater than or equal to 3% or a 10 year probability of any major osteoporosis-related fracture greater than or equal to 20% should be considered for treatment. - DXA scanner generated FRAX calculations may slightly differ from online FRAX calculations due to differences in software versions. - All recommendations and calculations are to be considered as guidelines and should not replace sound clinical judgement - Caution: Fracture risk may be increased independent of BMD in patients with corticosteroid use, age greater than 65 years, or a history of prior fragility fracture. RECOMMENDATIONS: Follow-up in 2 years or as clinically indicated. Patients that are taking corticosteroids, are transplant recipients or have hyperparathyroidism should have annual follow-up. Follow-up scans should always be done on the same machine for accurate comparison. FOR MORE INFORMATION ABOUT DIAGNOSIS AND TREATMENT: [facility] Osteoporosis and Metabolic Bone Disease:? www.ccf.org/arthritis/ost eo National Osteoporosis Foundation:? www.nof.org International Society of Clinical Densitometry www.iscd.org Framing And Hanging: SWATI Transcribe Date/Time: Jul 05 2024 5:15P Dictated by : DAVID NGO MD This examination was interpreted and the report reviewed and electronically signed by: DAVID NGO MD on Jul 05 2024 5:16PM [facility] * * *Final Report* * * DATE OF EXAM: Jul 04 2024 10:58AM B 0804 - BD DXA - AXIAL SKELETON B / PROCEDURE REASON: Z78.0 * * * * Physician Interpretation * * * * EXAMINATION: DXA BONE DENSITOMETRY BD DXA - AXIAL SKELETON PATIENT DEMOGRAPHICS: Age: 79 years, Gender: Female SCANNER INFORMATION: DXA Model: [facility] [employer] Mobile B - Hologic Horizon [id number] Date Scanned: 07/04/2024 10:58 AM CLINICAL HISTORY: DIAGNOSTIC Z78.0. RISK FACTORS FOR OSTEOPOROSIS AND ASSOCIATED FRACTURES REPORTED BY THIS PATIENT: Please refer to Bone Health Questionnaire in the EMR CURRENT THERAPY: Please refer to Bone Health Questionnaire in the EMR TECHNICAL LIMITATIONS: RESULTS: Lumbar spine (L1, L2, L3, L4): 0.900 g/cm2, T-score -1.3, Z-score 1.4 Left Femoral Neck: 0.641 g/cm2, T-score -1.9, Z-score 0.4 Left Total Hip: 0.786 g/cm2, T-score -1.3, Z-score 0.8 Left Forearm, Distal 1/3 of Radius: 0.555 g/cm2, T-score -2.2, Z-score 1.0 No comparison data - the patient has not had a previous bone density in the [facility] or the previous bone density was performed on a different DXA machine (new, updated model or different location) within the [facility]. VERTEBRAL FRACTURE ASSESSMENT Not performed. TRABECULAR BONE ASSESSMENT TBS not performed: not ordered [facility] Provider, Romel Shaw - 07/05/2024 * * *Final Report* * * DATE OF EXAM: Jul 04 2024 10:58AM RMB 0804 - BD DXA - AXIAL SKELETON B / PROCEDURE REASON: Z78.0 * * * * Physician Interpretation * * * * EXAMINATION: DXA BONE DENSITOMETRY BD DXA - AXIAL SKELETON PATIENT DEMOGRAPHICS: Age: 79 years, Gender: Female SCANNER INFORMATION: DXA Model: [employer] Mobile B - [employer] Horizon [id number] Date Scanned: 07/04/2024 10:58 AM CLINICAL HISTORY: DIAGNOSTIC Z78.0. RISK FACTORS FOR OSTEOPOROSIS AND ASSOCIATED FRACTURES REPORTED BY THIS PATIENT: Please refer to Bone Health Questionnaire in the EMR CURRENT THERAPY: Please refer to Bone Health Questionnaire in the EMR TECHNICAL LIMITATIONS: RESULTS: Lumbar spine (L1, L2, L3, L4): 0.900 g/cm2, T-score -1.3, Z-score 1.4 Left Femoral Neck: 0.641 g/cm2, T-score -1.9, Z-score 0.4 Left Total Hip: 0.786 g/cm2, T-score -1.3, Z-score 0.8 Left Forearm, Distal 1/3 of Radius: 0.555 g/cm2, T-score -2.2, Z-score 1.0 No comparison data - the patient has not had a previous bone density in the [facility] or the previous bone density was performed on a different DXA machine (new, updated model or different location) within the [facility]. VERTEBRAL FRACTURE ASSESSMENT Not performed. TRABECULAR BONE ASSESSMENT TBS not performed: not ordered IMPRESSION IMPRESSION: THE LOWEST T-SCORE IS -2.2 IN THE LEFT FOREARM 1) DIAGNOSIS (based on BMD alone): OSTEOPENIA Caution: Medical conditions other than osteoporosis may cause low bone density, such as osteomalacia or renal osteodystrophy. Clinical correlation is necessary. 2) FRACTURE RISK (based on FRAX): 10-year absolute fracture risk: - major osteoporotic fracture = 15 % - hip fracture = 4.2 % - A diagnosis of Osteoporosis, a 10 year probability of hip fracture greater than or equal to 3% or a 10 year probability of any major osteoporosis-related fracture greater than or equal to 20% should be considered for treatment. - DXA scanner generated FRAX calculations may slightly differ from online FRAX calculations due to differences in software versions. - All recommendations and calculations are to be considered as guidelines and should not replace sound clinical judgement - Caution: Fracture risk may be increased independent of BMD in patients with corticosteroid use, age greater than 65 years, or a history of prior fragility fracture. RECOMMENDATIONS: Follow-up in 2 years or as clinically indicated. Patients that are taking corticosteroids, are transplant recipients or have hyperparathyroidism should have annual follow-up. Follow-up scans should always be done on the same machine for accurate comparison. FOR MORE INFORMATION ABOUT DIAGNOSIS AND TREATMENT: [facility] for Osteoporosis and Metabolic Bone Disease:? www.ccf.org/arthritis/ost eo National Osteoporosis Foundation:? www.nof.org International Society of Clinical Densitometry www.iscd.org Framing And Hanging: PSCB Transcribe Date/Time: Jul 05 2024 5:15P Dictated by : DAVID NGO MD This examination was interpreted and the report reviewed and electronically signed by: DAVID NGO MD on Jul 05 2024 5:16PM [facility] BD DXA - AXIAL SKELETONon BD DXA - AXIAL SKELETON * * *Final Report* * * DATE OF EXAM: Jul 04 2024 10:58AM B 0804 - BD DXA - AXIAL SKELETON B / PROCEDURE REASON: Z78.0 * * * * Physician Interpretation * * * * EXAMINATION: DXA BONE DENSITOMETRY BD DXA - AXIAL SKELETON PATIENT DEMOGRAPHICS: Age: 79 years, Gender: Female SCANNER INFORMATION: DXA Model: [employer] Mobile B - [employer] Horizon [id number] Date Scanned: 07/04/2024 10:58 AM CLINICAL HISTORY: DIAGNOSTIC Z78.0. RISK FACTORS FOR OSTEOPOROSIS AND ASSOCIATED FRACTURES REPORTED BY THIS PATIENT: Please refer to Bone Health Questionnaire in the EMR CURRENT THERAPY: Please refer to Bone Health Questionnaire in the EMR TECHNICAL LIMITATIONS: RESULTS: Lumbar spine (L1, L2, L3, L4): 0.900 g/cm2, T-score -1.3, Z-score 1.4 Left Femoral Neck: 0.641 g/cm2, T-score -1.9, Z-score 0.4 Left Total Hip: 0.786 g/cm2, T-score -1.3, Z-score 0.8 Left Forearm, Distal 1/3 of Radius: 0.555 g/cm2, T-score -2.2, Z-score 1.0 No comparison data - the patient has not had a previous bone density in the [facility] or the previous bone density was performed on a different DXA machine (new, updated model or different location) within the [facility]. VERTEBRAL FRACTURE ASSESSMENT Not performed. TRABECULAR BONE ASSESSMENT TBS not performed: not ordered IMPRESSION: THE LOWEST T-SCORE IS -2.2 IN THE LEFT FOREARM 1) DIAGNOSIS (based on BMD alone): OSTEOPENIA Caution: Medical conditions other than osteoporosis may cause low bone density, such as osteomalacia or renal osteodystrophy. Clinical correlation is necessary. 2) FRACTURE RISK (based on FRAX): 10-year absolute fracture risk: - major osteoporotic fracture = 15 % - hip fracture = 4.2 % - A diagnosis of Osteoporosis, a 10 year probability of hip fracture greater than or equal to 3% or a 10 year probability of any major osteoporosis-related fracture greater than or equal to 20% should be considered for treatment. - DXA scanner generated FRAX calculations may slightly differ from online FRAX calculations due to differences in software versions. - All recommendations and calculations are to be considered as guidelines and should not replace sound clinical judgement - Caution: Fracture risk may be increased independent of BMD in patients with corticosteroid use, age greater than 65 years, or a history of prior fragility fracture. RECOMMENDATIONS: Follow-up in 2 years or as clinically indicated. Patients that are taking corticosteroids, are transplant recipients or have hyperparathyroidism should have annual follow-up. Follow-up scans should always be done on the same machine for accurate comparison. FOR MORE INFORMATION ABOUT DIAGNOSIS AND TREATMENT: [facility] for Osteoporosis and Metabolic Bone Disease:? www.ccf.org/arthritis/ost eo National Osteoporosis Foundation:? www.nof.org International Society of Clinical Densitometry www.iscd.org Framing And Hanging: SWATI Transcribe Date/Time: Jul 05 2024 5:15P Dictated by : DAVID NGO MD This examination was interpreted and the report reviewed and electronically signed by: DAVID NGO MD on Jul 05 2024 5:16PM EST [id number] -2.2 Normal [facility] DXA Skeletal system.axial Vi ews for bone densityon 07-04-2024 Radiology Study observation (narrative) [facility] SCREENINGon 07-04-2024 [facility] SCREENING * * *Final Report* * * DATE OF EXAM: Jul 04 2024 11:16AM RMW 0581 - [facility] SCREENING / PROCEDURE REASON: [id number] SCREENING MAMMOGRAM AMAURY WITH CAD * * * * Physician Interpretation * * * * #[id number] - [facility] SCREENING BILATERAL DIGITAL SCREENING MAMMOGRAM WITH CAD: 07/04/2024 HISTORY: [id number] Screening Mammogram Amaury With Cad. RESULT: TECHNIQUE: The study was acquired using full field digital technology and interpreted from soft copy. Current study was also evaluated with a Computer Aided Detection (CAD). Comparison is made to exams dated: 06/29/2023 mammogram and 09/26/2021 mammogram - [facility]. The breasts are almost entirely fatty. No significant masses, calcifications, or other findings are seen in either breast. There has been no significant interval change. IMPRESSION: NEGATIVE There is no mammographic evidence of malignancy. A 1 year screening mammogram is recommended. Hue Espinal M.D. er/penrad:07/12/2024 15:39:50 Electric Meter Installer(s): Vashti Epstein, [facility] [place] letter sent: Normal over 40 Mammogram BI-RADS: Category 1: Negative Multiple national specialty organizations have released breast cancer screening guidelines for women at average risk for developing breast cancer - guidelines that are based on both evidence and opinion, yet differ on when to start and how often to screen for breast cancer. With representation from Breast Imaging, Internal Medicine, Women's Health, Family Medicine, and Medical/Surgical Oncology, the [facility] has carefully reviewed the data and reached the following consensus: 1) All women should engage in shared decision-making with their providers to decide when to start and how often to screen; 2) All women should have the opportunity to start screening mammography at age 40; 3) For women ages 45-55, we recommend annual screening mammograms; 4) For women ages 55 and over, we support both the transition from an annual to a biennial interval if this aligns more with patient's values and preferences, or continuation with annual screening; 5) All women should discuss with their providers when to stop screening mammograms. Framing And Hanging: Khris Transcribe Date/Time: Jul 04 2024 11:02A Dictated by : HUE ESPINAL MD This examination was interpreted and the report reviewed and electronically signed by: HUE ESPINAL MD on Jul 12 2024 3:39PM EST [id number] Normal [facility] MG Breast Screeningon 2023 Radiology Study observation (narrative) [facility] 25(OH)D3 SerPl-mCncon 2023 25-hydroxyvitamin D3 [Mass/Vol] 75.1 ng/mL Normal 30.0-100.0 [facility] Comment on above: Order Comment: Maegan tyler Type: BLOOD SPECIMEN Ordering Facility: [facility] Address: [address] [place] [address] [address], [place] [address] Result Comment: Defi ciency\X09\Less than 20 ng/mL Insufficiency\X09\20 - Less than 30 ng/mL Sufficiency\X09\30 - 100 ng/mL Performed By: #### 1 989-3 #### [facility] CLIA [id number] [address] [place] [address] [place] CBC panel Auto (Bld)on 05-09 Erythrocyte distribution width (RBC) [Ratio] 13.5 % Normal 11.5-15.0 [facility] Comment on above: Order Comment: Maegan tyler Type: BLOOD SPECIMEN Ordering Facility: [facility] Address: [address] [place] [address] [address], [place] [address] Performed By: #### 5 8410-2 #### [facility] CLIA [id number] [address] [place] [address] [facility] Hematocrit (Bld) [Volume fraction] 39.6 % Normal 36.0-46.0 [facility] Comment on above: Order Comment: Maegan tyler Type: BLOOD SPECIMEN Ordering Facility: [facility] Address: [address] [place] [address] [address], [place] [address] Performed By: #### 5 8410-2 #### [facility] CLIA [id number] [address] [place] [address] [place] Hemoglobin (Bld) [Mass/Vol] 12.9 g/dL Normal 11.5-15.5 [facility] Comment on above: Order Comment: Speci men Type: BLOOD SPECIMEN Ordering Facility: [facility] Address: [address], [place] [address] Performed By: #### 5 8410-2 #### [facility] CLIA [id number] [address] [place] [address] [place] MCH (RBC) [Entitic mass] 30.8 pg Normal 26.0-34.0 [facility] Comment on above: Order Comment: Speci men Type: BLOOD SPECIMEN Ordering Facility: [facility] Address: [address], [place] [id number] Performed By: #### 5 8410-2 #### [facility] CLIA [id number] [address] [place] [address] [place] MCHC (RBC) [Mass/Vol] 32.6 g/dL Normal 30.5-36.0 [facility] Comment on above: Order Comment: Speci men Type: BLOOD SPECIMEN Ordering Facility: [facility] Address: [address], [place] [id number] Performed By: #### 5 8410-2 #### [facility] CLIA [id number] [address] [place] [address] [place] MCV (RBC) [Entitic vol] 94.5 fL Normal 80.0-100.0 [facility] Comment on above: Order Comment: Speci men Type: BLOOD SPECIMEN Ordering Facility: [facility] Address: [address], [place] [id number] Performed By: #### 5 8410-2 #### [facility] CLIA [id number] [address] [place] [address] [place] Nucleated RBC (Bld) [#/Vol] 10*3/uL Normal <0.01 [facility] Comment on above: Order Comment: Speci men Type: BLOOD SPECIMEN Ordering Facility: [facility] Address: [address], [place] [address] Performed By: #### 5 8410-2 #### [facility] CLIA [id number] [address] [place] [address] [place] Platelet mean volume (Bld) [Entitic vol] 11.1 fL Normal 9.0-12.7 [facility] Comment on above: Order Comment: Speci men Type: BLOOD SPECIMEN Ordering Facility: [facility] Address: [address], [place] [address] Performed By: #### 5 8410-2 #### [facility] CLIA [id number] [address] [place], [place] [id number] [place] Platelets (Bld) [#/Vol] 262 10*3/uL Normal 150-400 [facility] Comment on above: Order Comment: Speci men Type: BLOOD SPECIMEN Ordering Facility: [facility] Address: [address], [place] [address] Performed By: #### 5 8410-2 #### [facility] CLIA [id number] [address] [place], [place] [id number] [place] RBC (Bld) [#/Vol] 4.19 10*6/uL Normal 3.90-5.20 [facility] Comment on above: Order Comment: Speci men Type: BLOOD SPECIMEN Ordering Facility: [facility] Address: [address], [place] [address] Performed By: #### 5 8410-2 #### [facility] CLIA [id number] [address] [place], [place] [address] [place] WBC (Bld) [#/Vol] 4.98 10*3/uL Normal 3.70-11.00 [facility] Comment on above: Order Comment: Speci men Type: BLOOD SPECIMEN Ordering Facility: [facility] Address: [address], [place] [address] Performed By: #### 5 8410-2 #### [facility] CLIA [id number] [address] [place], [place] [address] [facility] [place] Comprehensive metabolic 2000 panelon 05-09-2024 Albumin [Mass/Vol] 3.7 g/dL Normal 3.2-5.0 [facility] Comment on above: Order Comment: Speci men Type: BLOOD SPECIMEN Ordering Facility: [facility] Address: [facility] [address], [place] [address] Performed By: #### 2 276-4, 16121-4, 15206-2, 3016-3 #### [facility] CLIA [id number] [address] [place] [address] [place] ALP [Catalytic activity/Vol] 92 U/L Normal 45-117 [facility] Comment on above: Order Comment: Speci men Type: BLOOD SPECIMEN Ordering Facility: [facility] Address: [address] [place] [address] [address], [place] [id number] Performed By: #### 2 276-4, 55785-0, 61451-9, 3016-3 #### [facility] CLIA [id number] [address] [place] [address] [facility] ALT [Catalytic activity/Vol] 19 U/L Normal 13-61 [facility] Comment on above: Order Comment: Speci men Type: BLOOD SPECIMEN Ordering Facility: [facility] Address: [address] [place] [address] [address], [place] [address] Result Comment: Resu lts may be falsely depressed after the administration of Sulfasalazine and/or Sulfapyridine. Performed By: #### 2 276-4, 18254-1, 27680-4, 3016-3 #### [facility] CLIA [id number] [address] [place], [place] [id number] [place] Anion gap [Moles/Vol] mmol/L Low 5-16 [facility] Comment on above: Order Comment: Speci men Type: BLOOD SPECIMEN Ordering Facility: [facility] Address: [facility] [address], [place] [address] Performed By: #### 2 276-4, 45788-5, 92275-8, 6-3 #### [facility] CLIA [id number] [address] [place] [address] [place] AST [Catalytic activity/Vol] 21 U/L Normal 8-34 [facility] Comment on above: Order Comment: Speci men Type: BLOOD SPECIMEN Ordering Facility: [facility] Address: [address], [place] [address] Result Comment: Resu lts may be falsely depressed after the administration of Sulfasalazine and/or Sulfapyridine. Performed By: #### 2 276-4, 46332-4, 19595-4, 3015-3 #### [facility] CLIA [id number] [address] [place] [address] [place] Bilirubin [Mass/Vol] 0.8 mg/dL Normal 0.2-1.0 [facility] Comment on above: Order Comment: Speci men Type: BLOOD SPECIMEN Ordering Facility: [facility] Address: [address], [place] [address] Performed By: #### 2 276-4, 88913-1, 75946-8, 3015-3 #### [facility] CLIA [id number] [address] [place] [address] [place] Calcium [Mass/Vol] 9.7 mg/dL Normal 8.5-10.5 [facility] Comment on above: Order Comment: Speci men Type: BLOOD SPECIMEN Ordering Facility: [facility] Address: [address], [place] [address] Performed By: #### 2 276-4, 76895-7, 48937-3, 6-3 #### [facility] CLIA [id number] [address] [place] [address] [place] Chloride [Moles/Vol] 110 mmol/L High 98-107 [facility] Comment on above: Order Comment: Speci men Type: BLOOD SPECIMEN Ordering Facility: [facility] Address: [address], [place] [address] Performed By: #### 2 276-4, 66956-7, 28070-9, 3016-3 #### [facility] CLIA [id number] [address] [place] [address] [place] CO2 [Moles/Vol] 28 mmol/L Normal 21-32 [facility] Comment on above: Order Comment: Speci men Type: BLOOD SPECIMEN Ordering Facility: [facility] Address: [facility], [place] [id number] Performed By: #### 2 276-4, 58728-3, 34874-9, 3016-3 #### [facility] CLIA [id number] [address] [place] [address] [place] Creatinine [Mass/Vol] 0.65 mg/dL Normal 0.51-0.95 [facility] Comment on above: Order Comment: Speci nayeli Type: BLOOD SPECIMEN Ordering Facility: [facility] Address: [address] [place] [address] [address], [place] [address] Result Comment: Mica ents receiving either N-Acetylcysteine (NAC) or Metamizole prior to venipuncture, may have falsely depressed results. Performed By: #### 2 276-4, 57292-5, 45908-6, 3016-3 #### [facility] CLIA [id number] [address] [place] [address] Creatinine and Glomerular filtration rate.predicted panel (S/P/Bld) 89 mL/min/1.73m??? Normal >=60 [facility] Comment on above: Order Comment: Speci men Type: BLOOD SPECIMEN Ordering Facility: [facility] Address: [address], [place] [id number] Result Comment: Vonda mated Glomerular Filtration Rate (eGFR) is calculated using the 2020 CKD-EPI creatinine equation. This equation utilizes serum creatinine, sex, and age as parameters. The creatinine assay has traceable calibration to isotope dilution-mass spectrometry. Refer to KDIGO guidelines for clinical interpretation. In patients with unstable renal function, e.g. those with acute kidney injury, the eGFR may not accurately reflect actual GFR. Performed By: #### 2 276-4, 65759-3, 58594-4, 6-3 #### [facility] CLIA [id number] [address] [place] [address] [place] Glucose [Mass/Vol] 107 mg/dL High 70-100 [facility] Comment on above: Order Comment: Maegan tyler Type: BLOOD SPECIMEN Ordering Facility: [facility] Address: [address], [place] [address] Result Comment: The [place] Diabetes Association (ADA) provides guidance for cutoff values for fasting glucose and random glucose. The ADA defines fasting as no caloric intake for at least 8 hours. Fasting plasma glucose results between 100 to 125 mg/dL indicate increased risk for diabetes (prediabetes). Fasting plasma glucose results greater than or equal to 126 mg/dL meet the criteria for diagnosis of diabetes. In the absence of unequivocal hyperglycemia, results should be confirmed by repeat testing. In a patient with classic symptoms of hyperglycemia or hyperglycemic crisis, random plasma glucose results greater than or equal to 200 mg/dL meet the criteria for diagnosis of diabetes. Reference: Standards of Medical Care in Diabetes 2016, [place] [employer] Association. Diabetes Care. 2016.39(Suppl 1). Results may be falsely elevated after the administration of Sulfapyridine. Results may be falsely depressed after the administration of Sulfasalazine. Performed By: #### 2 276-4, 55217-1, 27987-3, 6-3 #### [facility] CLIA [id number] [address] [place], [place] [id number] [place] Potassium [Moles/Vol] 4.0 mmol/L Normal 3.5-5.1 [facility] Comment on above: Order Comment: Maegan tyler Type: BLOOD SPECIMEN Ordering Facility: [facility] Address: [address], [place] [address] Performed By: #### 2 276-4, 56923-2, 46877-3, 6-3 #### [facility] CLIA [id number] [address] [place] [address] [place] Protein [Mass/Vol] 6.8 g/dL Normal 6.0-8.5 [facility] Comment on above: Order Comment: Speci men Type: BLOOD SPECIMEN Ordering Facility: [facility] Address: [address], [place] [address] Performed By: #### 2 276-4, 88652-6, 09420-6, 3016-3 #### [facility] CLIA [id number] [address] [place] [address] [place] Sodium [Moles/Vol] 140 mmol/L Normal 136-145 [facility] Comment on above: Order Comment: Speci men Type: BLOOD SPECIMEN Ordering Facility: [facility] Address: [address], [place] [address] Performed By: #### 2 276-4, 98417-1, 87211-0, 6-3 #### [facility] CLIA [id number] [address] [place], [place] [address] [place] [id number] [place] Urea nitrogen [Mass/Vol] 19 mg/dL Normal 7-26 [facility] Center Comment on above: Order Comment: Speci men Type: BLOOD SPECIMEN Ordering Facility: [facility] Address: [address], [place] [address] Performed By: #### 2 276-4, 15699-4, 82100-0, 6-3 #### [facility] CLIA [id number] [address] [place] [address] [place] Ferritin SerPl-mCncon 2023 Ferritin [Mass/Vol] 22.2 ng/mL Normal 8.0-307.0 [facility] Comment on above: Order Comment: Speci men Type: BLOOD SPECIMEN Ordering Facility: [facility] Address: [address], [place] [address] Performed By: #### 2 276-4, 54060-3, 36679-1, 6-3 #### [facility] CLIA [id number] [address] [place], [place] [address] [place] [address] [place] Iron and Iron binding capaci ty panelon 05-09-2024 Iron [Mass/Vol] 148 ug/dL Normal 50-170 [facility] Comment on above: Order Comment: Maegan tyler Type: BLOOD SPECIMEN Ordering Facility: [facility] Address: [address], [place] [address] Result Comment: Mica ents treated with metal-binding drugs (e.g.deferoxamine) may have depressed iron values, as chelated iron may not properly react in the Siemens iron assay. Performed By: #### 2 276-4, 03801-9, 09442-9, 3016-3 #### [facility] CLIA [id number] [address] [place] [id number] [place] Iron binding capacity [Mass/Vol] 370 ug/dL Normal 221-481 [facility] Comment on above: Order Comment: Maegan tyler Type: BLOOD SPECIMEN Ordering Facility: [facility] Address: [address] [place] [address] [address], [place] [address] Performed By: #### 2 276-4, 15352-1, 95824-4, 6-3 #### [facility] CLIA [id number] [facility] [employer] [place] [id number] [place] Iron/TIBC [Molar ratio] 40.0 % Normal 22.0-44.0 [facility] Comment on above: Order Comment: Maegan tyler Type: BLOOD SPECIMEN Ordering Facility: [facility] Address: [facility] [address], [place] [address] Performed By: #### 2 276-4, 35432-5, 38406-3, 3015-3 #### [facility] CLIA [id number] [address] [place], [place] [id number] [place] TSH SerPl-aCncon 05-09-2024 TSH Qn 1.447 m[IU]/L Normal 0.358-3.740 [facility] Comment on above: Order Comment: Maegan tyler Type: BLOOD SPECIMEN Ordering Facility: [facility] Address: [facility], [place] [address] Result Comment: 3rd generation ultra sensitive TSH. Performed By: #### 2 276-4, 80375-2, 02623-2, 3016-3 #### [facility] CLIA [id number] [address] [place] [address] [place] BD BONE DENSITY DEXA AXIAL S Jonatan 06-29-2023 BD BONE DENSITY DEXA AXIAL SKELETON ORIGINAL EXAMINATION: BONE DENSITOMETRY 06/29/2023 10:52 am TECHNIQUE: A bone density dual x-ray absorptiometry (DEXA) scan was performed of the lumbar spine and left hip. COMPARISON: None. HISTORY: ORDERING SYSTEM PROVIDED HISTORY: Reason for Exam: screening FINDINGS: T Score Left Femoral Neck: -1.9 Left Femoral Neck: 0.641 (g/cm2) T Score Left Hip: -1.2 Left Hip: 0.792 (g/cm2) T Score Lumbar Spine: -1.6 Lumbar Spine: 0.869 (g/cmd2) FRAX: 10 year fracture risk assessment Major osteoporotic fracture: 21% Hip fracture: 5.2% IMPRESSION: Osteopenia by WHO criteria. *By the World Health Organization criteria: (Comparing with young normal sex matched population) - Normal: T-score at or above -1 SD (standard deviation) - Osteopenia: T-score between -1 and -2.5 SD - Osteoporosis: T-score at or below -2.5 SD Interpreted by: Maverick Cr DO Preliminary Report By: Maverick Cr DO Electronically signed By Maverick Cr DO Dictated Date: 06/29/2023 11:42:03 AM Prelim Date: 06/29/2023 11:44:12 AM Sign Date: 06/29/2023 11:44:12 AM Ordering Provider: ANIBAL Maria [facility] ([place]) MA MAMMOGRAM SCREENING BILAT ERAL W/TOMOon 06-29-2023 MA MAMMOGRAM SCREENING BILATERAL W/EULALIO ORIGINAL FROM: [facility] [address] [place], [place] [address] PROCEDURE FOR: STACY OLIVO [address] [place] [address] Home: PID#: [id number] Exam#: [id number] : 1945 Age: 78 TO: ANIBAL QUIÑONES PA-C [address] [place], [place] [address] EXAMINATION: SCREENING DIGITAL BILATERAL MAMMOGRAM WITH TOMOSYNTHESIS, 06/29/2023 10:16 am TECHNIQUE: Screening mammography of the bilateral breasts was performed with tomosynthesis. 2D standard and 3D tomosynthesis combination imaging performed through both breasts in the MLO and CC projection. Computer aided detection was utilized in the interpretation of this exam. COMPARISON: 09/26/2021 HISTORY: Breast cancer screening. FINDINGS: BREAST DENSITY: Scattered fibroglandular tissue There are no significant masses or calcifications. IMPRESSION: No mammographic evidence of malignancy. Continued screening with annual mammograms is recommended. BIRADS: MAMMOGRAM BI-RADS: 1: Negative RECALL: 1 year screening RECALL TYPE: mammo LETTER SENT: Normal BI-RADS 1 and 2 Interpreted by: Maverick Plascencia MD Preliminary Report By: Maverick Plascencia MD Electronically signed By Maverick Plascencia MD Dictated Date: 06/29/2023 8:20:49 PM Prelim Date: 06/29/2023 8:22:29 PM Sign Date: 06/29/2023 8:22:29 PM Ordering Provider: ANIBAL QUIÑONES [employer] Installer: DEENA PETTIT RT (R)(M) letter sent: Normal BI-RADS 1 and 2 Mammogram BI-RADS: 1 Negative Normal [facility] ([place]) MRI KNEE W/O CONTRAST RIGHTo n 05-26-2023 MRI KNEE W/O CONTRAST RIGHT ORIGINAL EXAMINATION: MRI OF THE RIGHT KNEE WITHOUT CONTRAST05/26/2023 9:16 am TECHNIQUE: Multiplanar multisequence MRI of the right knee was performed without the administration of intravenous contrast. COMPARISON: Right knee radiograph 05/10/2023. HISTORY: ORDERING SYSTEM PROVIDED HISTORY: Reason for Exam: RIGHT KNEE PAIN, RIGHT KNEE PROBABLE CYST OR MENISCAL TEAR. FINDINGS: MUSCLES, TENDONS, AND LIGAMENTS: The anterior cruciate ligament is intact. The posterior cruciate ligament is intact. The deep and superficial components of the medial collateral ligament are intact. Thickened morphology of the medial collateral ligament origin. There is mild diffuse periligamentous edema. The lateral collateral ligament complex is intact. The popliteus and biceps femoris tendons, iliotibial band, and extensor mechanism are intact. Mild patellar origin tendinosis. MENISCI: Short-segment horizontal longitudinal tear noted of the body segment medial meniscus, reaching the inferior articular surface. This involves the vascular and avascular zones. There is a displaced meniscal flap into the inferior aspect of medial femorotibial recess on coronal image 13/30. Inner free edge fraying is also present of the body segment medial meniscus. Medial meniscal body extrusion. The lateral meniscus is intact. OSSEOUS STRUCTURES AND JOINTS: No fracture or dislocation is evident. No visualized marrow replacing osseous lesions. Tiny intraosseous ganglion at the insertion of the posterior cruciate ligament. Full-thickness chondral loss is noted of the anterior and central weight-bearing portions of the medial femoral condyle measuring on the order of 1.1 x 0.6 cm AP and transverse dimension. There are short-segment articular cartilage delamination, best seen on coronal image 15/30 as well as sagittal image 20/30. Additional low-grade cartilage thinning of the medial tibial plateau. Small marginal osteophytes Lateral femorotibial compartment articular cartilage is intact. Small marginal osteophyte Essentially diffuse full-thickness chondral loss is noted of the patellofemoral compartment. Cartilage thinning to a lesser degree is noted of the medial femoral trochlea at the mid and inferior aspects. Small volume effusion. A large intracapsular body of the medial aspect of the patellofemoral articulation measures 0.8 x 1.4 x 1.5 cm (AP, transverse, craniocaudal dimension). Thin suprapatellar and medial plica. SOFT TISSUES: No significant volume of fluid is evident in a popliteal cyst. IMPRESSION: 1. Horizontal longitudinal tear of the body segment of medial meniscus with displaced meniscal flap into the inferior aspect of medial femorotibial recess. 2. Low-grade sprain of medial collateral ligament. 3. Osteoarthrosis, most advanced of the patellofemoral compartment. Large intracapsular body interposed between the patella and femoral trochlea. Small volume effusion. Interpreted by: Misha Asencio DO Preliminary Report By: Misha Asencio DO Electronically signed By Misha Asencio DO Dictated Date: 05/26/2023 9:27:21 AM Prelim Date: 05/26/2023 9:58:31 AM Sign Date: 05/26/2023 9:58:31 AM Ordering Provider: ANIBAL QUIÑONES [facility] ([place]) XR KNEE THREE VIEWS LEFTon 0 05-11-2023 XR KNEE THREE VIEWS LEFT ORIGINAL EXAMINATION: THREE XRAY VIEWS OF THE RIGHT KNEE; THREE XRAY VIEWS OF THE LEFT KNEE 05/10/2023 9:48 am COMPARISON: None. HISTORY: ORDERING SYSTEM PROVIDED HISTORY: Reason for Exam: Bilateral knee pain FINDINGS: Standing AP views of both knees were obtained. There is mild narrowing of the medial tibiofemoral compartment of the left knee. Right tibiofemoral joint spaces are maintained. There is mild degenerative spurring at the margins of both tibiofemoral joints. There is moderate patellofemoral joint space narrowing bilaterally and mild patellar spur formation that is greater on the right than the left. There is no joint effusion. There is no evidence of chondrocalcinosis or other periarticular calcification. There is no fracture or dislocation. IMPRESSION: Moderate patellofemoral osteoarthrosis bilaterally and mild tibiofemoral osteoarthrosis bilaterally. Interpreted by: Dmitri Dent MD Preliminary Report By: Dmitri Dent MD Electronically signed By Dmitri Dent MD Dictated Date: 05/11/2023 2:34:55 AM Prelim Date: 05/11/2023 2:38:36 AM Sign Date: 05/11/2023 2:38:36 AM Ordering Provider: ANIBAL [facility]) XR KNEE THREE VIEWS RIGHTon 05-11-2023 XR KNEE THREE VIEWS RIGHT ORIGINAL EXAMINATION: THREE XRAY VIEWS OF THE RIGHT KNEE; THREE XRAY VIEWS OF THE LEFT KNEE 05/10/2023 9:48 am COMPARISON: None. HISTORY: ORDERING SYSTEM PROVIDED HISTORY: Reason for Exam: Bilateral knee pain FINDINGS: Standing AP views of both knees were obtained. There is mild narrowing of the medial tibiofemoral compartment of the left knee. Right tibiofemoral joint spaces are maintained. There is mild degenerative spurring at the margins of both tibiofemoral joints. There is moderate patellofemoral joint space narrowing bilaterally and mild patellar spur formation that is greater on the right than the left. There is no joint effusion. There is no evidence of chondrocalcinosis or other periarticular calcification. There is no fracture or dislocation. IMPRESSION: Moderate patellofemoral osteoarthrosis bilaterally and mild tibiofemoral osteoarthrosis bilaterally. Interpreted by: Dmitri Dent MD Preliminary Report By: Dmitri Dent MD Electronically signed By Dmitri Dent MD Dictated Date: 05/11/2023 2:34:55 AM Prelim Date: 05/11/2023 2:38:36 AM Sign Date: 05/11/2023 2:38:36 AM Ordering Provider: ANIBAL QUIÑONES [facility] ([place]) .GFRon 05-04-2023 GFR >60 [facility] ([place]) Comment on above: Result Comment: GFR Population mean for , Non- Americans Ages 20-29 = 116 mL/min/1.73 sq.m. Ages 30-39 = 107 mL/min/1.73 sq.m. Ages 40-49 = 99 mL/min/1.73 sq.m. Ages 50-59 = 93 mL/min/1.73 sq.m. Ages 60-69 = 85 mL/min/1.73 sq.m. Ages 70+ = 75 mL/min/1.73 sq.m. Chronic Kidney Disease: Less than 60 mL/min/1.73 square meters End Stage Renal Disease: Less than 15 mL/min/1.73 square meters Performed By: #### L IPID, CMP, GFR, TSH, HGMP #### [place] [address] GFR Non- >60 [facility] ([place]) Comment on above: Result Comment: GFR Population mean for , Non- Americans Ages 20-29 = 116 mL/min/1.73 sq.m. Ages 30-39 = 107 mL/min/1.73 sq.m. Ages 40-49 = 99 mL/min/1.73 sq.m. Ages 50-59 = 93 mL/min/1.73 sq.m. Ages 60-69 = 85 mL/min/1.73 sq.m. Ages 70+ = 75 mL/min/1.73 sq.m. Chronic Kidney Disease: Less than 60 mL/min/1.73 square meters End Stage Renal Disease: Less than 15 mL/min/1.73 square meters Performed By: #### L IPID, CMP, GFR, TSH, HGMP #### [address] [address] CMPon 05-04-2023 Albumin Level 3.9 G/dL Normal 3.2-4.8 [facility] ([place]) Comment on above: Performed By: #### L IPID, CMP, GFR, TSH, HGMP #### [place] [id number] Albumin/Globulin [Mass ratio] 1.1 {ratio} Normal 0.9-1.6 [facility] ([place]) Comment on above: Performed By: #### L IPID, CMP, GFR, TSH, HGMP #### [place] [id number] ALP [Catalytic activity/Vol] 95 U/L Normal 38-126 [facility] ([place]) Comment on above: Performed By: #### L IPID, CMP, GFR, TSH, HGMP #### [place] [address] ALT [Catalytic activity/Vol] 19 U/L Normal 10-49 [facility] ([place]) Comment on above: Performed By: #### L IPID, CMP, GFR, TSH, HGMP #### [place] [id number] AST [Catalytic activity/Vol] 19 U/L Normal 8-34 [facility] ([place]) Comment on above: Performed By: #### L IPID, CMP, GFR, TSH, HGMP #### [place] [id number] Bili Total 0.60 mg/dL Normal 0.20-1.20 [facility] ([place]) Comment on above: Result Comment: Use of this assay is not recommended for patients undergoing treatment with eltrombopag due to the potential for falsely elevated results. Performed By: #### L IPID, CMP, GFR, TSH, HGMP #### [place] [address] BUN/Creatinine Ratio 31.8 ratio High 10.0-22.0 [facility] ([place]) Comment on above: Performed By: #### L IPID, CMP, GFR, TSH, HGMP #### [address] [address] Calcium [Mass/Vol] 10.0 mg/dL Normal 8.7-10.4 [facility] ([place]) Comment on above: Performed By: #### L IPID, CMP, GFR, TSH, HGMP #### [address] [address] Chloride [Moles/Vol] 105 mmol/L Normal 98-110 [facility] ([place]) Comment on above: Performed By: #### L IPID, CMP, GFR, TSH, HGMP #### [address] [address] CO2 [Moles/Vol] 28 mmol/L Normal 22-32 [facility] ([place]) Comment on above: Performed By: #### L IPID, CMP, GFR, TSH, HGMP #### [address] [address] Creatinine [Mass/Vol] 0.66 mg/dL Normal 0.50-1.20 [facility] ([place]) Comment on above: Performed By: #### L IPID, CMP, GFR, TSH, HGMP #### [address] [address] Electrolyte Balance 10.0 mEq/L Normal 4.0-15.0 [facility] ([place]) Comment on above: Performed By: #### L IPID, CMP, GFR, TSH, HGMP #### [address] [address] Globulin 3.4 G/dL Normal 1.5-3.8 [facility] ([place]) Comment on above: Performed By: #### L IPID, CMP, GFR, TSH, HGMP #### [address] [address] Glucose [Mass/Vol] 97 mg/dL Normal 82-115 [facility] ([place]) Comment on above: Performed By: #### L IPID, CMP, GFR, TSH, HGMP #### [address] [address] Potassium [Moles/Vol] 3.9 mmol/L Normal 3.5-5.0 [facility] ([place]) Comment on above: Performed By: #### L IPID, CMP, GFR, TSH, HGMP #### [place] [id number] Sodium [Moles/Vol] 143 mmol/L Normal 136-145 [facility] ([place]) Comment on above: Performed By: #### L IPID, CMP, GFR, TSH, HGMP #### [place] [address] Total Protein 7.3 G/dL Normal 5.7-8.2 [facility] ([place]) Comment on above: Result Comment: No te - New Reference Range in effect 20 Performed By: #### L IPID, CMP, GFR, TSH, HGMP #### [place] [address] Urea nitrogen [Mass/Vol] 21.0 mg/dL Normal 8.0-22.0 [facility] ([place]) Comment on above: Performed By: #### L IPID, CMP, GFR, TSH, HGMP #### [place] [address] HGMPon 05-04-2023 Erythrocyte distribution width (RBC) [Ratio] 14.5 % Normal 11.5-15.5 [facility] ([place] Comment on above: Performed By: #### L IPID, CMP, GFR, TSH, HGMP #### [place] [id number] Hematocrit (Bld) [Volume fraction] 40.5 % Normal 34.0-46.0 [facility] ([place] Comment on above: Performed By: #### L IPID, CMP, GFR, TSH, HGMP #### [place] [id number] Hgb 13.3 G/dL Normal 12.0-16.0 [facility] ([place] Comment on above: Performed By: #### L IPID, CMP, GFR, TSH, HGMP #### [place] [id number] MCH (RBC) [Entitic mass] 30.3 pg Normal 27.0-33.0 [facility] ([place] Comment on above: Performed By: #### L IPID, CMP, GFR, TSH, HGMP #### [place] [address] MCHC 32.8 G/dL Normal 32.0-36.0 [facility] ([place] Comment on above: Performed By: #### L IPID, CMP, GFR, TSH, HGMP #### [place] [address] MCV (RBC) [Entitic vol] 92.2 fL Normal 80.0-99.0 [facility] ([place] Comment on above: Performed By: #### L IPID, CMP, GFR, TSH, HGMP #### [place] [address] Platelet 235 10 3/mcL Normal 150-450 [facility] ([place] Comment on above: Performed By: #### L IPID, CMP, GFR, TSH, HGMP #### [place] [address] Platelet mean volume (Bld) [Entitic vol] 9.7 fL Normal 6.6-10.5 [facility] ([place] Comment on above: Performed By: #### L IPID, CMP, GFR, TSH, HGMP #### [place] [address] RBC 4.39 10 6/mcL Normal 4.10-5.30 [facility] ([place] Comment on above: Performed By: #### L IPID, CMP, GFR, TSH, HGMP #### [place] [address] WBC 7.2 10 3/mcL Normal 4.5-10.8 [facility] ([place] Comment on above: Performed By: #### L IPID, CMP, GFR, TSH, HGMP #### [place] [address] LIPIDon 05-04-2023 Cholesterol [Mass/Vol] 235 mg/dL High 50-199 [facility] ([place] Comment on above: Result Comment: Chol esterol Reference Interval: Less than 200 Desirable 200-239 Borderline high risk 240 and above High risk Performed By: #### L IPID, CMP, GFR, TSH, HGMP #### [address] [address] Cholesterol in HDL [Mass/Vol] 60 mg/dL High 40-59 [facility] ([place] Comment on above: Performed By: #### L IPID, CMP, GFR, TSH, HGMP #### [place] [address] Cholesterol in LDL [Mass/Vol] 123 mg/dL Normal 0-129 [facility] ([place] Comment on above: Performed By: #### L IPID, CMP, GFR, TSH, HGMP #### [address] [address] Triglyceride [Mass/Vol] 261 mg/dL High 3-149 [facility] ([place] Comment on above: Performed By: #### L IPID, CMP, GFR, TSH, HGMP #### [address] [address] TSHon 05-04-2023 TSH 1.257 mIU/mL Normal 0.550-4.780 [facility] ([place] Comment on above: Result Comment: No te - New Reference Range in effect 20 Performed By: #### L IPID, CMP, GFR, TSH, HGMP #### [place] [address] URINE CULTUREon 03-14-2022 Bacteria identified Cx Nom (U) ORGANISM 1: ESCHERICHIA COLI COLONY COUNT >100,000 ESCHERICHIA COLI: REACTION AMIKACIN <16 S AMPICILLIN <8 S AZTREONAM <4 S CEFAZOLIN <2 S CEFEPIME <2 S CEFOTAXIME <2 S CEFOTETAN <16 S CEFTAZIDIME <1 S CIPROFLOXACIN <1 S GENTAMICIN <4 S ERTAPENEM <0.5 S NITROFURANTOIN <32 S PIPERACILLIN/TAZOBACTAM <16 S TETRACYCLINE <4 S TOBRAMYCIN <4 S TRIMETH/SULFA <2/38 S LEVOFLOXACIN <2 S MEROPENEM <1 S Normal [facility] Comment on above: Performed By: #### M 100.28777 #### [facility] [address] [place] [address] URINE CULTUREon 11-07-2021 Bacteria identified Cx Nom (U) URINE RESULT LESS THAN 10,000 COLONIES PER ML Normal [facility] Comment on above: Performed By: #### M 100.55369 #### [facility] [address] [place] [address] FOOT COMP MIN 3 VWS RTon FOOT COMP MIN 3 VWS RT RIGHT FOOT 3 VIEWS: Clinical Statement: Contusion, dropped knife handle on foot Comparison: None FINDINGS: There are no fractures dislocations or subluxations. There is degenerative joint disease with narrowing and osteophytosis at the first metatarsophalangeal joint. There are posterior and plantar calcaneal enthesophytes. IMPRESSION: No fracture. This report was electronically signed by Susannah Robles MD 07/28/2021 4:41 PM Reported By: SUSANNAH ROBLES M.D. Signed By: SUSANNAH ROBLES M.D. Normal [facility] CBCon 06-10-2021 Erythrocyte distribution width (RBC) [Ratio] 12.8 % Normal 11-14.[address] [facility] Comment on above: Performed By: #### L 200.33132 #### [facility] [address] [place] [address]# [phone] Hematocrit (Bld) [Volume fraction] 41.9 % Normal 35.0-47.[address] [facility] Comment on above: Performed By: #### L 200.70232 #### [facility] [address] [place] [address] Hemoglobin (Bld) [Mass/Vol] 13.5 g/dL Normal 11.5-15.[address] [facility] Comment on above: Performed By: #### L 200.98964 #### [facility] [address] [place] [address] MCHC (RBC) [Mass/Vol] 32.2 g/dL Normal 32.0-36.[address] [facility] Comment on above: Performed By: #### L 200.13890 #### [facility] [address] [place] [address] MCV (RBC) [Entitic vol] 92.5 fL Normal 80.0-99.[address] [facility] Comment on above: Performed By: #### L 200.83400 #### [facility] [address] [place] [address] Nucleated RBC/100 WBC (Bld) [Ratio] 0.0 % Normal Less than [address] [facility] Comment on above: Performed By: #### L 200.63806 #### [facility] [address] [place] [address] Platelet mean volume (Bld) [Entitic vol] 11.6 fL Normal 9.4-12.[address] [facility] Comment on above: Performed By: #### L 200.05795 #### [facility] [address] [place] [address] PLT 258 K/CU MM Normal 150-[address] [facility] Comment on above: Performed By: #### L 200.13595 #### [facility] [address] [place], [place] [address] RBC 4.53 M/CU MM Normal 3.90-5.[address] [facility] Comment on above: Performed By: #### L 200.58958 #### [facility] [address] [place] [address] WBC 5.8 K/CUMM Normal 4.5-11.[address] [facility] Comment on above: Performed By: #### L 200.79615 #### [facility] [address] [place] [address] CMPon 06-10-2021 Albumin [Mass/Vol] 4.1 g/dL Normal 3.2-5.[address] [facility] Comment on above: Performed By: #### L 550.51279, L500.49097, L500.42085, L500.71147, L500.48019 #### [facility] [place] [address] Albumin/Globulin [Mass ratio] 1.3 {ratio} Normal 0.8-2.[address] [facility] Comment on above: Performed By: #### L 550.68435, L500.84739, L500.94852, L500.21654, L500.83172 #### [facility] [address] [place], [place] [id number] ALK PHOS 103 U/L Normal 45-[address] [facility] Comment on above: Performed By: #### L 550.07474, L500.10036, L500.09491, L500.22048, L500.55369 #### [facility] [address] [place] [address] ALT [Catalytic activity/Vol] 22 U/L Normal 13-[address] [facility] Comment on above: Result Comment: RESU LTS MAY BE FALSELY DEPRESSED AFTER THE ADMINISTRATION OF SULFASALAZINE AND/OR SULFAPYRIDINE. Performed By: #### L 550.36950, L500.77752, L500.49139, L500.16718, L500.04315 #### [facility] [address] [place] [address] Anion gap [Moles/Vol] 6 mmol/L Normal 5-[address] [facility] [facility] Comment on above: Performed By: #### L 550.17789, L500.77714, L500.02653, L500.49707, L500.68818 #### [facility] [place] [address] AST [Catalytic activity/Vol] 22 U/L Normal 8-[address] [facility] Comment on above: Result Comment: RESU LTS MAY BE FALSELY DEPRESSED AFTER THE ADMINISTRATION OF SULFASALAZINE AND/OR SULFAPYRIDINE. Performed By: #### L 550.90686, L500.60531, L500.48767, L500.01080, L500.50311 #### [facility] [place] [address] BILI TOTAL 0.50 MG/DL Normal 0.2-1.[address] [facility] Comment on above: Performed By: #### L 550.82890, L500.29931, L500.39994, L500.90405, L500.67426 #### [facility] [address] [place] [address] Calcium [Mass/Vol] 10.5 mg/dL Normal 8.5-10.[address] [facility] Comment on above: Result Comment: NOTE NEW NORMAL RANGE DUE TO REAGENT CHANGE Performed By: #### L 550.62537, L500.70923, L500.64365, L500.96927, L500.40338 #### [facility] [address] [place] [address] Chloride [Moles/Vol] 109 mmol/L High 98-107 [facility] Comment on above: Performed By: #### L 550.45114, L500.48941, L500.54323, L500.00392, L500.25623 #### [facility] [address] [place], [place] [id number] CO2 [Moles/Vol] 28.0 mmol/L Normal 21-[address] [facility] Comment on above: Performed By: #### L 550.89085, L500.03652, L500.48852, L500.77458, L500.93517 #### [facility] [address] [place] [address] Creatinine [Mass/Vol] 0.67 mg/dL Normal 0.510-0.[address] [facility] Comment on above: Result Comment: Mica ents receiving either N-Acetylcysteine (NAC) or Metamizole prior to venipuncture, may have falsely depressed results. Performed By: #### L 550.67270, L500.94681, L500.81501, L500.51671, L500.72809 #### [facility] [address] [place] [address] Globulin (S) [Mass/Vol] 3.1 g/dL Normal 2.2-4.[address] [facility] Comment on above: Performed By: #### L 550.68054, L500.96154, L500.95376, L500.69296, L500.53703 #### [facility] [address] [place] [address] Glucose [Mass/Vol] 103 mg/dL High 70-[address] [facility] Comment on above: Result Comment: 70-1 00- Normal Fasting; 100-125 Impaired Fasting; greater than 126 on more than one result- Diabetes. ADA guidelines. Results may be falsely elevated after the administration of Sulfapyridine. Results may be falsely depressed after the administration of Sulfasalazine. Performed By: #### L 550.76231, L500.43162, L500.95628, L500.76533, L500.33793 #### [facility] [place] [address] Potassium [Moles/Vol] 3.9 mmol/L Normal 3.5-5.[address] [facility] Comment on above: Performed By: #### L 550.11282, L500.42049, L500.66613, L500.27193, L500.29339 #### [facility] [place] [address] Protein [Mass/Vol] 7.2 g/dL Normal 6.0-8.[address] [facility] Comment on above: Performed By: #### L 550.40228, L500.97490, L500.38246, L500.36871, L500.57689 #### [facility] [address] [place] [address] Sodium [Moles/Vol] 143 mmol/L Normal 136-[address] [facility] Comment on above: Performed By: #### L 550.04528, L500.92018, L500.69121, L500.33487, L500.70871 #### [facility] [address] [place] [address] Urea nitrogen [Mass/Vol] 21 mg/dL Normal 7-[address] [facility] Comment on above: Performed By: #### L 550.40299, L500.84606, L500.31937, L500.68402, L500.65201 #### [facility] [address] [place] [address] Urea nitrogen/Creatinine [Mass ratio] 31 mg/mg High 15-[address] [facility] Comment on above: Performed By: #### L 550.78477, L500.31257, L500.84487, L500.42161, L500.31084 #### [facility] [address] [place] [address] GFR ESTon 06-10-2021 IF AMER Greater than 60 Normal [facility] Comment on above: Performed By: #### L 550.33508, L500.05844, L500.09484, L500.21762, L500.39649 #### [facility] [address] [place], [place] [address] IF non-AFR AMER Greater than 60 Normal [facility] Comment on above: Performed By: #### L 550.63104, L500.42211, L500.35431, L500.48647, L500.61540 #### [facility] [address] [place] [address] LIPIDon 06-10-2021 CHOL 216 MG/dL High 0-[address] [facility] Comment on above: Performed By: #### L 550.74808, L500.26179, L500.76682, L500.73026, L500.53941 #### [facility] [address] [place] [address] Cholesterol in HDL [Mass/Vol] 66 mg/dL Normal GREATER THAN [address] [facility] Comment on above: Result Comment: Mica ents receiving Metamizole prior to venipuncture, may have falsely depressed results. Performed By: #### L 550.30868, L500.37856, L500.98676, L500.73634, L500.28360 #### [facility] [address] [place] [address] Cholesterol in LDL [Mass/Vol] 117 mg/dL Normal [facility] Comment on above: Result Comment: ___C HOLESTEROL/HDL RATIO RISK___ CHD RISK = Total CHOL LDL HDL (CHOL/HDL) Recommended <200 <130 >40 <3.4 Borderline 200-239 130-159 3.4-4.99 High >240 >160 >5.0 Performed By: #### L 550.62849, L500.65538, L500.82762, L500.40510, L500.83459 #### [facility] [place] [address] Triglyceride [Mass/Vol] 164 mg/dL High 30-[address] [facility] Comment on above: Result Comment: Mica ents receiving either N-Acetylcysteine (NAC) or Metamizole prior to venipuncture, may have falsely depressed results. Performed By: #### L 550.64907, L500.51418, L500.46512, L500.95819, L500.18916 #### [facility] [place] [address] TSHon 06-10-2021 TSH 2.350 UIU/ML Normal 0.358-3.[address] [facility] Comment on above: Result Comment: 3rd generation ultra sensitive TSH Performed By: #### L 550.94389, L500.40901, L500.34315, L500.40715, L500.38627 #### [facility] [place] [address] [id number] 06-10-2021 [id number]-CDWWINK 47.8 NG/ML Normal 30.0-100.[address] [facility] Comment on above: Result Comment: Defi ciency Less than 20 ng/mL Insufficiency 20 - Less than 30 ng/mL Sufficiency 30 - 100 ng/mL Performed By: #### L 550.96722, L500.43554, L500.00444, L500.91691, L500.24806 #### [facility] [place] [id number] Vital Signs Date Time Vital Sign Value Performing Clinician Lynette maravilla 07-19-2025 10:24-0400 Body temperature 97.8 [degF] Kathy Jacobs PA Work Phone: [facility] 07-19-2025 10:24-0400 Body weight 59.87 kg Kathy Jacobs PA Work Phone: [facility] 07-19-2025 10:24-0400 Diastolic blood pressure 89 mm[Hg] Kathy Jacobs PA Work Phone: [facility] 07-19-2025 10:24-0400 Heart rate 71 /min Kathy Jacobs PA Work Phone: [facility] 07-19-2025 10:24-0400 Respiratory rate 14 /min Kathy Jacobs PA Work Phone: [facility] 07-19-2025 10:24-0400 SaO2% (BldA) [Mass fraction] 96 % Kathy Jacobs PA Work Phone: [facility] 07-19-2025 10:24-0400 Systolic blood pressure 157 mm[Hg] Kathylisseth Jacobs PA Work Phone: [facility] Encounters Encounter Date Encounter Type Care Provider Facility Start: 09-14-2025 ambulatory Mica Ojeda lity:[facility] Start: 09-13-2025 End: 09-13-2025 ambulatory Mica Araujo Facility:[facility] Start: 08-07-2025 End: 08-07-2025 ambulatory ANIBAL TEJEDA Facility:[facility] Start: 08-07-2025 End: 08-07-2025 Patient encounter procedure ANIBAL TEJEDA [facility] Start: 08-01-2025 End: 08-01-2025 ambulatory ANIBAL TEJEDA Facility:[facility] Start: 08-01-2025 End: 08-01-2025 Patient encounter procedure ANIBAL TEJEDA [facility] Start: 07-19-2025 End: 07-19-2025 Patient encounter procedure Kathy TEJEDA -[facility] Work Phone: Start: 07-19-2025 End: 07-19-2025 ambulatory Kathy Jacobs -[facility] Start: 04-25-2025 End: 04-25-2025 ambulatory ZAINAB WILD MD Facility:[facility] Start: 04-25-2025 End: 04-25-2025 Patient encounter procedure ZAINAB WILD MD [facility] Start: 09-04-2024 End: 09-08-2024 ambulatory ANIBAL TEJEDA Facility:A Start: 07-12-2024 End: 07-14-2024 Documentation procedure Mammography Coordinator [facility] Start: 07-12-2024 End: 07-14-2024 Letter encounter Mammography Coordinator [facility] Start: 07-04-2024 ambulatory ANIBAL QUIÑONES Facility:1 [id number] Start: 07-04-2024 End: 07-04-2024 Subsequent hospital visit by physician Screen Mamm[facility] Comment on above: Encounter for screen ing mammogram for malignant neoplasm of breast [Z12.31] Start: 08-13-2023 End: 08-18-2023 ambulatory STACIA STEWART MD Facility:A Start: 06-29-2023 End: 06-30-2023 ambulatory ANIBAL TEJEDA Facility:[facility] Start: 06-29-2023 End: 06-29-2023 Patient encounter procedure ANIBAL TEJEDA [facility] Start: 05-26-2023 End: 05-27-2023 ambulatory ANIBAL TEJEDA Facility:[facility] Start: 05-26-2023 End: 05-26-2023 Patient encounter procedure ANIBAL TEJEDA [facility] Start: 05-25-2023 End: 05-26-2023 ambulatory ZAINAB WILD MD Facility:B Start: 05-25-2023 End: 05-25-2023 Patient encounter procedure ZAINAB WILD MD [facility] Start: 05-10-2023 End: 05-11-2023 ambulatory ANIBAL TEJEDA Facility:[facility] Start: 05-10-2023 End: 05-10-2023 Patient encounter procedure ANIBAL TEJEDA [facility] Start: 05-04-2023 End: 05-08-2023 ambulatory ANIBAL TEJEDA Facility:[facility] Start: 11-05-2021 End: 11-05-2021 Subsequent hospital visit by physician Anibal Quiñones Work Phone: [facility] Comment on above: UTI Start: 08-20-2021 End: 08-20-2021 Patient encounter procedure SALLIE ROMAN MD [facility] Procedures Date Procedure Procedure Detail Performing Clinician Start: 07-04-2024 Screening mammograph y bi 2-view breast inc cad Anibal Quiñones PA-C Work Phone: Start: 07-04-2024 Dxa bone density marina dy 1/> sites axial skel Anibal Quiñones PA-C Work Phone: Start: 08-20-2021 CT angiography of ch est with contrast ANIBAL TEJEDA Start: 06-03-2021 Echocardiography ANIBAL TEJEDA Comment on above: 1. Left ventricle: T he cavity size is normal. Wall thickness is normal. Systolic function is normal. The estimated ejectionfraction is 60-65%. Wall motion is normal; there are no regional wall motion abnormalities. Grade II diastolic dysfunction. 2. Ventricular septum: Thickness is mildly increased. 3. Mitral valve: Mild prolapse, involving the posterior leaflet. There is moderate regurgitation, directed eccentrically andanteriorly. 4. Left atrium: The atrium is mildly dilated. 5. Right ventricle: The RV systolic pressure by Doppler is 21 mm Hg. 6. Right atrium: The estimated right atrial pressure is 3 mm Hg. 7. Pericardium, extracardiac: A trivial pericardial effusion is identified anterior to the heart Start: 02-12-2021 CT of chest SALLIE Rojo MD Start: 11-08-2016 Echocardiography SALLIE ROMAN MD Start: 10-15-2015 Cardiovascular stres s testing SALLIE ROMAN MD Start: 11-08-2014 Echocardiography SALLIE ROMAN MD Start: 11-08-2010 Cataract (disorder) JAYLEEN ROMAN MD Plan of Treatment Date Care Activity Detail Author Start: 05-09-2027 Diabetes Screening Diabetes Screenin g [facility] Start: 07-09-2024 Covid-19 Vaccine () Covid-19 Vaccine () [facility] Start: 07-09-2024 Influenza vaccination Influenza Vacc ine (#1) [facility] Start: 11-08-2023 Advance Directive Discussion Advance Directive Discussion [facility] Start: 10-28-2020 Urine microalbumin profile DTa P,Tdap,Td Vaccine (2 - Td or Tdap) [facility] Start: 01-27-1962 Anxiety Screening Anxiety Screening [facility] Start: 01-27-1962 Depression Screening Depression Scre ening [facility] Payers Date Payer Category Payer Self-pay 2025 Private Health Insurance [id number] 2024 Private Health Insurance [id number] 2022 Medicare HUMANA MEDICARE HUMANA MEDICARE PPO [id number] 2022-Present [phone] [address] [address] [place] [address] PPO [id number] 2022 Private Health Insurance [id number] 1944 Unknown [id number] 27 1944 Unknown [id number] 2.16.840.1.646915.3.579.2.6 27 1944 Unknown [id number] 2.16.840.1.449989.3.579.2.6 27 1944 Unknown [id number] 2.16.840.1.244456.3.579.2.6 27 1944 Unknown [id number] 2.16.840.1.779948.3.579.2.6 27 1944 Unknown [id number] 2.16.840.1.506914.3.579.2.6 27 1944 Unknown [id number] 2.16.840.1.703537.3.579.2.6 27 1944 Unknown [id number] 2.16.840.1.790555.3.579.2.6 27 1944 Unknown [id number] 2.16.840.1.368935.3.579.2.6 27 1944 Unknown [id number] 2.16.840.1.618248.3.579.2.6 27 Unknown [id number] 2.16.840.1.638149.3.579.2.4 62 Unknown [id number] 2.16.840.1.849959.3.579.2.4 62 Unknown [id number] 2.16.840.1.807925.3.579.2.4 62 Social History Date Type Detail Facility Start: 02-13-2021 End: 04-19-2025 Never smoked tobacco (finding) [facility] Sex Assigned At [facility] Tobacco smoking status MTIS Tobacco smoking consumption unknown [facility] Start: 1945 Sex Assigned At Not on file [facility] Gender identity Not on file [facility] Start: 12-16-2005 Sex Female (finding) [facility] Start: 1945 Sex Assigned At Female W [facility] Clinical Notes 05-10-2023 to 08-01-2025 Note Date & Type Note Facility 08-01-2025 Note Exam Date Time Procedure Performing Provider Status 08/01/25 4:[address] Abd/Pelvis w/ IV Contrast Only SHELLEY PRICE DO; Auth (Verified) [id number] ORIGINAL EXAMINATION: CT OF THE ABDOMEN AND PELVIS WITH CONTRAST 08/01/2025 5:21 pm TECHNIQUE: CT of the abdomen and pelvis was performed with the administration of intravenous contrast. Multiplanar reformatted images are provided for review. Automated exposure control, iterative reconstruction, and/or weight based adjustment of the mA/kV was utilized to reduce the radiation dose to as low as reasonably achievable. COMPARISON: None. HISTORY: ORDERING SYSTEM PROVIDED HISTORY: Reason for Exam: LT UPPER QUAD PAIN FINDINGS: Visualized portion of the lower chest demonstrates no acute abnormality. The liver is enlarged measuring up to 19 cm. No abnormal contour or enhancement. Gallbladder is largely decompressed with layering cholelithiasis. The spleen, pancreas and adrenal glands are unremarkable. Kidneys are within normal limits for size and enhance symmetrically. No hydroureteronephrosis or nephroureterolithiasis bilaterally. The urinary bladder is incompletely distended. Although somewhat limited given modality, there is suspected thickening of the endometrium common usual for the patient's age. The stomach is incompletely distended. Bowel gas is noted within nondilated loops to the level of the rectum without evidence of obstruction. The appendix is visualized and unremarkable. Scattered diverticula are appreciated within the sigmoid colon without evidence of acute inflammatory change. No free air or fluid. No abdominal or pelvic adenopathy. The abdominal aorta is nonaneurysmal in size with mild to moderate atherosclerotic changes. No acute osseous or soft tissue abnormalities. IMPRESSION: 1. No acute intra-abdominal or pelvic abnormality. 2. Hepatomegaly. 3. Cholelithiasis without evidence of acute cholecystitis. 4. Diverticulosis without evidence of acute diverticulitis. 5. Although somewhat limited given modality, there is suspected thickening of the endometrium, unusual for the patient's age. Recommend further evaluation with prompt outpatient pelvic ultrasound. Interpreted by: Shelley Romero Preliminary Report By: Shelley Romero Electronically signed By Shelley Romero Dictated Date: 08/01/2025 6:10:07 PM Prelim Date: 08/01/2025 6:17:04 PM Sign Date: 08/01/2025 6:17:04 PM Ordering Provider: ANIBAL QUIÑONES RP [facility]09-24-2025 Note* Exam Date Time Procedure Performing Provider Status 08/01/25 2:19 PM XR Chest 2 Views JANNIE RUIZ MD; Aut h (Verified) [id number] ORIGINAL EXAMINATION: TWO XRAY VIEWS OF THE CHEST08/01/2025 2:19 pm COMPARISON: Chest x-ray 02/12/2021 HISTORY: ORDERING SYSTEM PROVIDED HISTORY: Reason for Exam: posterior/ inferior chest wall/regional pain FINDINGS: Cardiomediastinal contours are within normal limits. Aortic calcification is seen. There is no pneumothorax or pleural effusion. No obvious acute displaced rib fracture. Degenerative changes of the spine. There is no pleural effusion or pneumothorax. No focal consolidation is seen. IMPRESSION: No acute cardiopulmonary process. I have personally reviewed the images of this examination and agree with the resident's findings and interpretation. Interpreted by: Jannie Ruiz MD Preliminary Report By: Maverick Gonsales Electronically signed By Jannie Ruiz MD Dictated Date: 08/01/2025 3:08:29 PM Prelim Date: 08/01/2025 4:51:23 PM Sign Date: 08/01/2025 4:51:23 PM Ordering Provider: ANIBAL QUIÑONES [facility]06-18-2025 Note* Exam Date Time Procedure Performing Provider Status 04/25/25 10:49 AM Echocardiogram, Adult - CV NICKOLAS DICKEY MD; Auth (Verified) [facility]10-30-2024 Note. MICRO - Microbiology PROCEDURE: Urine Culture [*1] SOURCE: Urine, Clean Catch BODY SITE: COLLECTED DATE/TIME: 09/04/2024 12:00 EDT RECEIVED DATE/TIME: 09/04/2024 23:25 EDT START DATE/TIME: 09/04/2024 23:25 EDT FREE TEXT SOURCE: FINAL REPORTS Final Report [] Verified Date/Time/Personnel: 09/06/2024 07:51 EDT <10,000 cfu/ml. No Significant growth. Sensitivity not indicated. PRELIMINARY REPORTS Preliminary Report [] Verified Date/Time/Personnel: 09/05/2024 08:35 EDT Culture results pending. Performing Locations *1: This test was performed at: [facility], [address] [place] [address], [id number] , [facility]09-04-2024 Note* Letter - Coordinator, Mammography - 07/12/2024 3:39 PM EDT July 13, 2024 PID: [id number] Stacy Olivo [address] [place] [address] Dear Ms. Olivo, We are pleased to inform you that the results of your recent breast imaging exam on 07/04/2024 are normal. Breast tissue can be either dense or not dense. Dense tissue makes it harder to find breast cancer on a mammogram and also raises the risk of developing breast cancer. Your breast tissue is not dense. Talk to your healthcare provider about breast density, risks for breast cancer, and your individual situation. Early detection of cancer is very important. We also understand recommendations regarding breast cancer screening are controversial. Please discuss with your primary care provider which strategy is best for you and whether a mammogram is right for you. Your imaging studies and report will be kept on file at [facility] as part of your permanent medical record and are available for your continuing care. Thank you for allowing us to help in meeting your health care needs. Sincerely, Dr. Espinal Interpreting Radiologist [facility] (Normal over 40) [facility]09-04-2024 Miscellaneous Notes* Letter - Coordinator, Mammography - 07/12/2024 3:39 PM EDT July 13, 2024 PID: [id number] Stacy Olivo [address] [place] [address] Dear Ms. Olivo, We are pleased to inform you that the results of your recent breast imaging exam on 07/04/2024 are normal. Breast tissue can be either dense or not dense. Dense tissue makes it harder to find breast cancer on a mammogram and also raises the risk of developing breast cancer. Your breast tissue is not dense. Talk to your healthcare provider about breast density, risks for breast cancer, and your individual situation. Early detection of cancer is very important. We also understand recommendations regarding breast cancer screening are controversial. Please discuss with your primary care provider which strategy is best for you and whether a mammogram is right for you. Your imaging studies and report will be kept on file at [facility] as part of your permanent medical record and are available for your continuing care. Thank you for allowing us to help in meeting your health care needs. Sincerely, Dr. Espinal Interpreting Radiologist [facility] (Normal over 40) [facility] History of Present illness Narrative* Vashti Epstein RT(R) - 07/04/2024 11:30 AM EDT Radiology Service Progress Note PATIENT NAME: Stacy Olivo DATE OF SERVICE: July 04, 2024 TIME: 11:26 AM PATIENT IDENTITY VERIFICATION COMPLETED USING TWO (2) IDENTIFIERS: Name and Date of confirmedby patient verbally. FALL SCREENING: Has the patient had 2 falls in the last year or 1 fall with injury or currently using an Ambulatory Assistive Device (Walker, Cane, Wheelchair, Crutches, etc.)? No PATIENT GENDER DATA: Female. status: : No status: NO. PATIENT RELEVANT IMPLANT DATA REVIEWED: Not Applicable PATIENT PRESENTS WITH AN IMPLANTABLE OR ATTACHED SURPLUS PROPERTY DISPOSAL AGENT: No RADIOLOGY DEPARTMENT: Mammography PERIPHERAL IV DATA: Not applicable SIGNED BY: RT Silvano(R) July 04, 2024 11:26 AM documented in [facility]2024 NoteHNO ID: [id number] Author: VASHTI EPSTEIN RT([place]) Service: ? Author Type: Technologist Type: Progress Notes Filed: 07/04/2024 11:26 Note Text: Radiology Service Progress Note PATIENT NAME: Stacy Olivo DATE OF SERVICE: July 04, 2024 TIME: 11:26 AM PATIENT IDENTITY VERIFICATION COMPLETED USING TWO (2) IDENTIFIERS: Name and Date of confirmed by patient verbally. FALL SCREENING: Has the patient had 2 falls in the last year or 1 fall with injury or currently using an Ambulatory Assistive Device (Walker, Cane, Wheelchair, Crutches, etc.)? No PATIENT GENDER DATA: Female. status: : No status: NO. PATIENT RELEVANT IMPLANT DATA REVIEWED: Not Applicable PATIENT PRESENTS WITH AN IMPLANTABLE OR ATTACHED SURPLUS PROPERTY DISPOSAL AGENT: No RADIOLOGY DEPARTMENT: Mammography PERIPHERAL IV DATA: Not applicable SIGNED BY: RT Silvano(R) July 04, 2024 11:26 [facility] History of Present illness Narrative* Darin Ignacio RT([place]) - 07/04/2024 10:30 AM EDT Radiology Service Progress Note PATIENT NAME: Stacy Olivo DATE OF SERVICE: July 04, 2024 TIME: 10:56 AM PATIENT IDENTITY VERIFICATION COMPLETED USING TWO (2) IDENTIFIERS: Name and Date of confirmedby patient verbally. FALL SCREENING: Has the patient had 2 falls in the last year or 1 fall with injury or currently using an Ambulatory Assistive Device (Walker, Cane, Wheelchair, Crutches, etc.)? No PATIENT GENDER DATA: Female. status: : No status: NO. PATIENT RELEVANT IMPLANT DATA REVIEWED: Not Applicable PATIENT PRESENTS WITH AN IMPLANTABLE OR ATTACHED SURPLUS PROPERTY DISPOSAL AGENT: No RADIOLOGY DEPARTMENT: Bone Density PERIPHERAL IV DATA: Not applicable SIGNED BY: RT Kirsten([place]) July 04, 2024 10:56 AM documented in this encounterSt. [facility]24 NoteHNO ID: [id number] Author: DARIN IGNACIO RT(R) Service: ? Author Type: Technologist Type: Progress Notes Filed: 07/04/2024 10:56 Note Text: Radiology Service Progress Note PATIENT NAME: Stacy Olivo DATE OF SERVICE: July 04, 2024 TIME: 10:56 AM PATIENT IDENTITY VERIFICATION COMPLETED USING TWO (2) IDENTIFIERS: Name and Date of confirmed by patient verbally. FALL SCREENING: Has the patient had 2 falls in the last year or 1 fall with injury or currently using an Ambulatory Assistive Device (Walker, Cane, Wheelchair, Crutches, etc.)? No PATIENT GENDER DATA: Female. status: : No status: NO. PATIENT RELEVANT IMPLANT DATA REVIEWED: Not Applicable PATIENT PRESENTS WITH AN IMPLANTABLE OR ATTACHED SURPLUS PROPERTY DISPOSAL AGENT: No RADIOLOGY DEPARTMENT: Bone Density PERIPHERAL IV DATA: Not applicable SIGNED BY: Darin Ignacio RT(R) July 04, 2024 10:56 [facility]10-08-2023 Note. MICRO - Microbiology PROCEDURE: Urine Culture [*1] SOURCE: Urine BODY SITE: COLLECTED DATE/TIME: 08/13/2023 15:30 EDT RECEIVED DATE/TIME: 08/13/2023 19:40 EDT START DATE/TIME: 08/13/2023 19:41 EDT FREE TEXT SOURCE: FINAL REPORTS Final Report [] Verified Date/Time/Personnel: 08/15/2023 08:50 EDT 10,000 - 50,000 cfu/ml Escherichia coli ESBL Extended-Spectrum B-Lactamase isolate may be clinically resistant to therapy with Penicillins, Cephalosporinsor Aztreonam despite apparent in vitro susceptibility to some of these agents. Use of Imipenem is currently restricted to Infectious Disease /Intensivists. Please consult Physicians accordingly. PRELIMINARY REPORTS Preliminary Report [] Verified Date/Time/Personnel: 08/14/2023 13:40 EDT 10,000 - 50,000 cfu/ml Escherichia coli LOW to follow SUSCEPTIBILITY RESULTS Escherichia coli ESBL Antibiotic LOW Dilut LOW Inter Ampicillin >16 Resistant Ampicillin/ 8/4 Resistant Sulbactam Aztreonam >16 Resistant Cefazolin >16 Resistant Cefotaxime >32 Suspected ESBL Talent Scout Ceftriaxone >32 Suspected ESBL Tal[employer] Scout Cefuroxime >16 Resistant Ciprofloxacin 0.5 Intermediate Ertapenem <=0.5 Susceptible Gentamicin <=2 Susceptible Imipenem <=1 Susceptible Levofloxacin <=0.5 Susceptible Meropenem <=1 Susceptible Minocycline <=4 Susceptible Nitrofurantoin <=32 Susceptible Trimethoprim/ <=0.5/9.5 Susceptible Sulfa Performing Locations *1: This test was performed at: [facility], [address] [place] [address], [id number] , [facility] ([place])06-29-2023 Note ORIGINAL EXAMINATION: BONE DENSITOMETRY 06/29/2023 10:52 am TECHNIQUE: A bone density dual x-ray absorptiometry (DEXA) scan was performed of the lumbar spine and left hip. COMPARISON: None. HISTORY: ORDERING SYSTEM PROVIDED HISTORY: Reason for Exam: screening FINDINGS: T Score Left Femoral Neck: -1.9 Left Femoral Neck: 0.641 (g/cm2) T Score Left Hip: -1.2 Left Hip: 0.792 (g/cm2) T Score Lumbar Spine: -1.6 Lumbar Spine: 0.869 (g/cmd2) FRAX: 10 year fracture risk assessment Major osteoporotic fracture: 21% Hip fracture: 5.2% IMPRESSION: Osteopenia by WHO criteria. *By the World Health Organization criteria: (Comparing with young normal sex matched population) - Normal: T-score at or above -1 SD (standard deviation) - Osteopenia: T-score between -1 and -2.5 SD - Osteoporosis: T-score at or below -2.5 SD Interpreted by: Maverick Cr DO Preliminary Report By: Maverick Cr DO Electronically signed By Maverick Cr DO Dictated Date: 06/29/2023 11:42:03 AM Prelim Date: 06/29/2023 11:44:12 AM Sign Date: 06/29/2023 11:44:12 AM Ordering Provider: [facility]07-19-2023 Note ORIGINAL EXAMINATION: MRI OF THE RIGHT KNEE WITHOUT CONTRAST05/26/2023 9:16 am TECHNIQUE: Multiplanar multisequence MRI of the right knee was performed without the administration of intravenous contrast. COMPARISON: Right knee radiograph 05/10/2023. HISTORY: ORDERING SYSTEM PROVIDED HISTORY: Reason for Exam: RIGHT KNEE PAIN, RIGHT KNEE PROBABLE CYST OR MENISCAL TEAR. FINDINGS: MUSCLES, TENDONS, AND LIGAMENTS: The anterior cruciate ligament is intact. The posterior cruciate ligament is intact. The deep and superficial components of the medial collateral ligament are intact. Thickened morphology of the medial collateral ligament origin. There is mild diffuse periligamentous edema. The lateral collateral ligament complex is intact. The popliteus and biceps femoris tendons, iliotibial band, and extensor mechanism are intact. Mild patellar origin tendinosis. MENISCI: Short-segment horizontal longitudinal tear noted of the body segment medial meniscus, reaching the inferior articular surface. This involves the vascular and avascular zones. There is a displaced meniscal flap into the inferior aspect of medial femorotibial recess on coronal image 13/30. Inner free edge fraying is also present of the body segment medial meniscus. Medial meniscal body extrusion. The lateral meniscus is intact. OSSEOUS STRUCTURES AND JOINTS: No fracture or dislocation is evident. No visualized marrow replacing osseous lesions. Tiny intraosseous ganglion at the insertion of the posterior cruciate ligament. Full-thickness chondral loss is noted of the anterior and central weight-bearing portions of the medial femoral condyle measuring on the order of 1.1 x 0.6 cm AP and transverse dimension. There are short-segment articular cartilage delamination, best seen on coronal image 15/30 as well as sagittal image 20/30. Additional low-grade cartilage thinning of the medial tibial plateau. Small marginal osteophytes Lateral femorotibial compartment articular cartilage is intact. Small marginal osteophyte Essentially diffuse full-thickness chondral loss is noted of the patellofemoral compartment. Cartilage thinning to a lesser degree is noted of the medial femoral trochlea at the mid and inferior aspects. Small volume effusion. A large intracapsular body of the medial aspect of the patellofemoral articulation measures 0.8 x 1.4 x 1.5 cm (AP, transverse, craniocaudal dimension). Thin suprapatellar and medial plica. SOFT TISSUES: No significant volume of fluid is evident in a popliteal cyst. IMPRESSION: 1. Horizontal longitudinal tear of the body segment of medial meniscus with displaced meniscal flap into the inferior aspect of medial femorotibial recess. 2. Low-grade sprain of medial collateral ligament. 3. Osteoarthrosis, most advanced of the patellofemoral compartment. Large intracapsular body interposed between the patella and femoral trochlea. Small volume effusion. Interpreted by: Misha Asencio DO Preliminary Report By: Misha Asencio DO Electronically signed By Misha Asencio DO Dictated Date: 05/26/2023 9:27:21 AM Prelim Date: 05/26/2023 9:58:31 AM Sign Date: 05/26/2023 9:58:31 AM Ordering Provider: ANIBAL [facility]07-18-2023 Note* Exam Date Time Procedure Performing Provider Status 05/25/23 1:05 PM Echocardiogram, Adult ([facility]) Auth (Verified) [facility] 07-04-2023 Note ORIGINAL EXAMINATION: THREE XRAY VIEWS OF THE RIGHT KNEE; THREE XRAY VIEWS OF THE LEFT KNEE 05/10/2023 9:48 am COMPARISON: None. HISTORY: ORDERING SYSTEM PROVIDED HISTORY: Reason for Exam: Bilateral knee pain FINDINGS: Standing AP views of both knees were obtained. There is mild narrowing of the medial tibiofemoral compartment of the left knee. Right tibiofemoral joint spaces are maintained. There is mild degenerative spurring at the margins of both tibiofemoral joints. There is moderate patellofemoral joint space narrowing bilaterally and mild patellar spur formation that is greater on the right than the left. There is no joint effusion. There is no evidence of chondrocalcinosis or other periarticular calcification. There is no fracture or dislocation. IMPRESSION: Moderate patellofemoral osteoarthrosis bilaterally and mild tibiofemoral osteoarthrosis bilaterally. Interpreted by: Dmitri Dent MD Preliminary Report By: Dmitri Dent MD Electronically signed By Dmitri Dent MD Dictated Date: 05/11/2023 2:34:55 AM Prelim Date: 05/11/2023 2:38:36 AM Sign Date: 05/11/2023 2:38:36 AM Ordering Provider: ANIBAL QUIÑONES [facility]07-04-2023 Note ORIGINAL EXAMINATION: THREE XRAY VIEWS OF THE RIGHT KNEE; THREE XRAY VIEWS OF THE LEFT KNEE 05/10/2023 9:48 am COMPARISON: None. HISTORY: ORDERING SYSTEM PROVIDED HISTORY: Reason for Exam: Bilateral knee pain FINDINGS: Standing AP views of both knees were obtained. There is mild narrowing of the medial tibiofemoral compartment of the left knee. Right tibiofemoral joint spaces are maintained. There is mild degenerative spurring at the margins of both tibiofemoral joints. There is moderate patellofemoral joint space narrowing bilaterally and mild patellar spur formation that is greater on the right than the left. There is no joint effusion. There is no evidence of chondrocalcinosis or other periarticular calcification. There is no fracture or dislocation. IMPRESSION: Moderate patellofemoral osteoarthrosis bilaterally and mild tibiofemoral osteoarthrosis bilaterally. Interpreted by: Dmitri Dent MD Preliminary Report By: Dmitri Dent MD Electronically signed By Dmitri Dent MD Dictated Date: 05/11/2023 2:34:55 AM Prelim Date: 05/11/2023 2:38:36 AM Sign Date: 05/11/2023 2:38:36 AM Ordering Provider: [facility]07-03-2023 Note ORIGINAL EXAMINATION: THREE XRAY VIEWS OF THE RIGHT KNEE; THREE XRAY VIEWS OF THE LEFT KNEE 05/10/2023 9:48 am COMPARISON: None. HISTORY: ORDERING SYSTEM PROVIDED HISTORY: Reason for Exam: Bilateral knee pain FINDINGS: Standing AP views of both knees were obtained. There is mild narrowing of the medial tibiofemoral compartment of the left knee. Right tibiofemoral joint spaces are maintained. There is mild degenerative spurring at the margins of both tibiofemoral joints. There is moderate patellofemoral joint space narrowing bilaterally and mild patellar spur formation that is greater on the right than the left. There is no joint effusion. There is no evidence of chondrocalcinosis or other periarticular calcification. There is no fracture or dislocation. IMPRESSION: Moderate patellofemoral osteoarthrosis bilaterally and mild tibiofemoral osteoarthrosis bilaterally. Interpreted by: Dmitri Dent MD Preliminary Report By: Dmitri Dent MD Electronically signed By Dmitri Dent MD Dictated Date: 05/11/2023 2:34:55 AM Prelim Date: 05/11/2023 2:38:36 AM Sign Date: 05/11/2023 2:38:36 AM Ordering Provider: [facility]07-03-2023 Note ORIGINAL EXAMINATION: THREE XRAY VIEWS OF THE RIGHT KNEE; THREE XRAY VIEWS OF THE LEFT KNEE 05/10/2023 9:48 am COMPARISON: None. HISTORY: ORDERING SYSTEM PROVIDED HISTORY: Reason for Exam: Bilateral knee pain FINDINGS: Standing AP views of both knees were obtained. There is mild narrowing of the medial tibiofemoral compartment of the left knee. Right tibiofemoral joint spaces are maintained. There is mild degenerative spurring at the margins of both tibiofemoral joints. There is moderate patellofemoral joint space narrowing bilaterally and mild patellar spur formation that is greater on the right than the left. There is no joint effusion. There is no evidence of chondrocalcinosis or other periarticular calcification. There is no fracture or dislocation. IMPRESSION: Moderate patellofemoral osteoarthrosis bilaterally and mild tibiofemoral osteoarthrosis bilaterally. Interpreted by: Dmitri Dent MD Preliminary Report By: Dmitri Dent MD Electronically signed By Dmitri Dent MD Dictated Date: 05/11/2023 2:34:55 AM Prelim Date: 05/11/2023 2:38:36 AM Sign Date: 05/11/2023 2:38:36 AM [facility] No data available for this section [facility] Evaluation + Plan note Future Appointments Appointment Date:05/26/2023 03:30:00 PM Scheduled Provider: Location:[facility] Appointment Type:MRI Knee w/o Contrast Right [facility] Evaluation noteNo assessment information available [facility] Work Phone: Hospital Discharge instructions No data available for this section [facility] Progress note No data available for this section [facility] Reason for referral (narrative)No reason for [facility]: Summary Purpose Family History No Family History Records Found Relationship Condition Age at Onset Recorded Date/T anabell Not Specified Diabetes mellitus Unknown Coronary artery disease Unknown Cardiac disease Unknown Myocardial infarction Unknown Malignant neoplasm Unknown Asthma Unknown Advance Directives No Advanced Directives Records FoundNo Advanced Directives Records FoundNo Advanced Directives Records FoundNo Advanced Directives Records FoundNo Advanced Directives Records FoundNo Advanced Directives Records FoundNo Advanced Directives Records Found Chief Complaint and Reason for Visit Chief Complaint Admit Date Varicose veins July 19, 2025 9:51am Additional Source Comments Source Comments (unrecognize d section and content) In the event this informatio n is protected by the Federal Confidentiality of Alcohol and Drug Abuse Patient Records regulations: The Federal rules restrict any use of the information to criminally investigate or prosecute any alcohol or drug abuse patient.[facility] the event this information is protected by the Federal Confidentiality of Alcohol and Drug Abuse Patient Records regulations: The Federal rules restrict any use of the information to criminally investigate or prosecute any alcohol or drug abuse patient.[facility] Hospital[facility] the event this information is protected by the Federal Confidentiality of Alcohol and Drug Abuse Patient Records regulations: The Federal rules restrict any use of the information to criminally investigate or prosecute any alcohol or drug abuse patient.[facility] the event this information is protected by the Federal Confidentiality of Alcohol and Drug Abuse Patient Records regulations: The Federal rules restrict any use of the information to criminally investigate or prosecute any alcohol or drug abuse patient.[facility] INFORMATION SOURCE (unrecogn ized section and content) DATE CREATED AUTHOR 03/21/2022 [facility] [place] DATE CREATED AUTHOR AUTHOR'S ORGANIZ ATION 09/11/2023 [facility] ([place]) DATE CREATED AUTHOR AUTHOR'S ORGANIZ ATION 07/15/2024 [facility] DATE CREATED AUTHOR AUTHOR'S ORGANIZ ATION 07/19/2024 [facility] DATE CREATED AUTHOR AUTHOR'S ORGANIZ ATION 09/20/2024 [facility] DATE CREATED AUTHOR AUTHOR'S ORGANIZ ATION 08/10/2025 [facility] DATE CREATED AUTHOR AUTHOR'S ORGANIZ ATION 09/15/2025 [facility] Patient Care team informatio n (unrecognized section and content) Umbrella Tipper Relationship Specialty Start Date End Date Stacia Stewart MD [address] [place] [address] PCP - General Internal Medicine 06/12/24 Umbrella Tipper Relationship Specialty Start Date End Date Stacia Stewart MD [address] [place] [address] PCP - General Internal Medicine 06/12/24 Team Status: Inactive Member Role/Relationship Status Dates NIKHIL Maldonado Attending Provider Active Star t: July 19, 2025 End: July 19, 2025 Goals (unrecognized section and content) Goals may be documented in a n alternate section FOR RECORDS PERTAINING TO PATIENTS WHO ARE OR HAVE BEEN ENROLLED IN A CHEMICAL DEPENDENCY/SUBSTANCEABUSE PROGRAM, SOME INFORMATION MAY BE OMITTED. This clinical summary was aggregated from multiple sources. Caution should be exercised in using it in the provision of clinical care. This summary normalizes information from multiple sources, and as a consequence, information in this document may materially change the coding, format and clinical context of patient data. In addition, data may be omitted in some cases. CLINICAL DECISIONS SHOULD BE BASED ON THE PRIMARY CLINICAL RECORDS. [facility] [employer] [facility]. provides no warranty or guarantee of the accuracy or completeness of information in this document.
--- NOTE | 2025-09-17 06:49 | EKG12_ITS ---
Test Reason : PREOP Blood Pressure : */* mmHG Vent. Rate : 66 BPM Atrial Rate : 66 BPM P-R Int : 166 ms QRS Dur : 134 ms QT Int : 486 ms P-R-T Axes : 40 -17 158 degrees QTcB Int : 509 ms Normal sinus rhythm Left bundle branch block Abnormal ECG Confirmed by Tal Quintero ([id number]), marketing editor RAYMOND RAE ([id number]) on 09/17/2025 10:30:11 AM Referred By: Mica Araujo Confirmed By: Tal Quintero
[2025-09-17 08:42] LABS: Hematocrit 41.3 % (37-47); Hemoglobin 13.4 g/dL (12.0-15.0); Immature Granulocytes Count 0.030 X10^3/uL (0.0-0.0); Mean Corp Hgb Conc 32.4 g/dL (32-36); Mean Corpuscular Volume 93.2 fL (81-99); Mean Platelet Vol. 10.6 fl (6.2-12.0); NRBC Flagged by Analyzer 0 % (0-5); Platelet Count 264 K/mm3 (150-450); RBC Distribution Width CV 13.0 % (11.6-14.6); RBC Distribution Width SD 45.1 fl (35.1-43.9); Red Blood Count 4.43 M/mm3 (4.2-5.4); White Blood Count 5.1 K/mm3 (4.4-11.0)
[2025-09-17 09:23] LABS: AST(SGOT) 24 U/L (<=31); Alanine Aminotransfer ALT/SGPT 14 U/L (<=34); Albumin, Serum 4.2 g/dL (3.4-4.8); Alkaline Phosphatase 87 U/L (35-104); Anion Gap 10 (5-15); BUN 21 mg/dL (4-19); BUN/Creat Ratio 27.2 RATIO (10-20); Calcium,Total 9.5 mg/dL (7.6-11.0); Carbon Dioxide 27.1 mmol/L (21.0-32.0); Chloride 105 mmol/L (98-108); Globulin 2.9 g/dL (2.2-4.2); Glucose 100 mg/dL (70-99); Potassium 4.2 mmol/L (3.3-5.1)
== END | disposition home or self-care (01) ==
PROVIDERS: Referring Provider Obstetrics & Gynecology; Visit Provider Obstetrics & Gynecology
DX: R93.89 Abnormal findings on diagnostic imaging of other specified body structures (principal)
CPT/HCPCS: 36415; 80053; 85025; 86850; 86900; 86901; 93005

== ENCOUNTER 2025-09-19 05:54 | Day surgery (SDC) | payer MEDICARE, SELFPAY ==
--- NOTE | 2025-09-17 13:03 | PAT.ANESEVAL ---
Pre-Assessment Diagnosis/Proposed Procedure Planned Operative Procedure(s): HYSTEROSCOPY, D&C, POSSIBLE INTRAUTERINE DEVICE INSERTION Anesthesia History Anesthesia History - manager sterile processing: Anesthesia History - manager sterile processing Hx Hospitalization No 09/17/25 12:05 Any Problems With Anesthesia Yes: GOES UNDER EASY 09/17/25 12:05 Cholinesterase deficiency No 09/17/25 12:05 You/Your Family Experience No 09/17/25 12:05 fever (hyperthermia) with Relationship Recent Exposure to Contagious Disease Does patient have nerve No 09/17/25 12:05 stimulator Patient instructed to have device shut off --Does patient have Pacemaker or ICD? When Was Last Pacemaker Check QUESTION #4 FULL TEXT: You/Your Family Experience fever (hyperthermia) with Anesthesia Last Oral Intake Last Oral intake: Last Oral Intake NPO since Meds taken in AM with sips of water? Meds patient instructed to take am of surgery PONV PONV - manager sterile processing: PONV - manager sterile processing Female Yes 09/17/25 12:05 HX of Motion Sickness No 09/17/25 12:05 HX of N/V After Surgery No 09/17/25 12:05 Non-Smoker Yes 09/17/25 12:05 Duration of Surgery greater No 09/17/25 12:05 than 60 minutes Number of Risk Factors 2 09/17/25 12:05 PONV Score Moderate Risk 09/17/25 12:05 Height & Weight Height & Weight: Anesthesia: Height & Weight Height 5 ft 1 in 09/13/25 15:36 Respiratory Assessment Respiratory Assessment - manager sterile processing: Respiratory Tract Infection Hx - manager sterile processing Hx Respiratory Tract Infection No 09/17/25 12:05 STOP Sleep Apnea STOP Sleep Apnea - manager sterile processing: STOP Sleep Apnea - manager sterile processing Hx Hypertension No 09/17/25 12:05 Hx Sleep Apnea No 09/17/25 12:05 CPAP BIPAP Do you snore loudly (louder No 09/17/25 12:05 than talking or can be heard Do you often feel tired/ No 09/17/25 12:05 fatigued/ sleepy during daytime? Has anyone observed you stop No 09/17/25 12:05 breathing during sleep? STOP Results Negative 09/17/25 12:05 QUESTION #5 FULL TEXT : Do you snore loudly (louder than talking or can be heard through closed doors)? 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 Specify any problems Hx of Preganancy in last 3 No 09/17/25 12:05 Months Nurse Filling Out Transfusion JZOLLINGE 09/17/25 12:05 & Questions: Date: 09/17/25 09/17/25 12:05 Time: 12:06 09/17/25 12:05 Patient unable to answer at this time (ie. confused, unrespo /Reproduction History /Reproductive History - manager sterile processing: /Reproductive Hx- manager sterile processing Hx Now No 09/17/25 12:05 Gestational Age (in weeks): EDC: Hx Hx Para Hx Section SAB No 09/17/25 12:05 Does the father of the baby or his family experience fever w Father of the baby Malignant Hypertension history comment [facility] Medical History (Updated 09/17/25 @ 12:05 by Sylvia Viera) Wears glasses Wears partial dentures Non-smoker Ganglion cyst Heart valve problem Tumors GERD (gastroesophageal reflux disease) Osteopenia Low calcium levels Glaucoma Gallstones Carpal tunnel syndrome Cataracts, bilateral Breast lump Pulmonary embolism UTI (urinary tract infection) Ankle fracture Arthritis Hx of heart valve insufficiency Home Medications Medication Instructions Recorded Last Taken Type calcium 300 mg-D3 20 mcg-magnesium 1 tab PO QDAY 09/13/25 Unknown History 25 mg-coppr 0.5 wp-xxuh-upgj tablet iron 1 tab PO .every other day 09/13/25 Unknown History latanoprost 0.005 % eye drops 1 drp ophthalmic (eye) QPM 09/13/25 Unknown History bssytdav-okegbtlp-ghztv acid 240 1 tab PO .QD 09/13/25 Unknown History mcg-vit K1 150 mcg-herb 357 tablet (Alive Women's 50 Plus Ultra Multivitamin) redimind natural cognitive enhancer 1 tab PO .QD 09/13/25 Unknown History turmeric 400 mg capsule 1,000 mg PO .QD 09/13/25 Unknown History Allergy/AdvReac Type Severity Reaction Status Date / Time No Known Allergies Allergy Verified 09/17/25 11:57 Family History (Updated 09/13/25 @ 15:18 by Kassandra Jean) Mother Anemia Arthritis Glaucoma Brother Heart disease Hypertension Surgical History (Updated 09/17/25 @ 12:05 by Sylvia Viera) History of colonoscopy with polypectomy History of bladder suspension procedure History of left oophorectomy Hx of removal of ovary Social History (Updated 09/13/25 @ 15:36 by Kassandra Jean) household members: spouse Smoking Status: Never smoker alcohol intake: current alcohol intake frequency: holidays/special occasions only substance use type: does not use what type of physical activity do you participate in: walking and swimming additional social history: Mersandra Audit: Pertinent Findings Pertinent Findings EKG Perinent findings: Normal sinus rhythm Left bundle branch block Abnormal ECG Confirmed by Tal Quintero ([id number]), editor farm journal RAYMOND RAE ([id number]) on 09/17/2025 10:30:11 AM Recommendation Anesthesia Recommendation Anesthesia recommendation: OPTIMIZED for anesthesia
[2025-09-19] VITALS (9 sets, daily range): BP systolic 162–186; BP diastolic 75–93; PULSE 64–76; RESP 14–16; TEMP 36.2–37.1; O2SAT 92–97; BMI 25.0
--- OUTSIDE RECORDS SUMMARY | 2025-09-19 05:59 | XMS RPT_ITS | CCD ---
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 Name Role Phone ANIBAL CARTER Primary Care Physician Unavailable Primary Care Provider UnavailANIBAL Brumfield Primary Care Physician [phone] ZAINAB WILD MD Attending Unavailable ANIBAL CARTER Primary Care Unavailable ANIBAL CARTER Primary Care Unavailable ANIBAL CARTER Attending Unavailable ANIBAL CARTER Attending Unavailable ANIBAL CARTER Primary Care Unavailable ANIBAL CARTER Primary Care Unavailable ANIBAL CARTER Attending Unavailable ANIBAL CARTER Primary Care Unavailable ANIBAL CARTER Attending Unavailable ALINE STEWART MD Attending Unavailable ANIBAL CARTER Primary Care Unavailable ANIBAL QUIÑONES Referring Unavailable ALINE STEWART Primary Care Unavailable ANIBAL QUIÑONES Referring Unavailable ALINE STEWART Primary Care Unavailable Aline Stewart MD Primary Care Provider [phone] ANIBAL CARTER Attending Unavailable ANIBAL CARTER Primary Care Unavailable Kathy Lovell Attending Provider ANIBAL CARTER Attending Unavailable ANIBAL CARTER Primary Care Unavailable ANIBAL CARTER Attending Unavailable ANIBAL CARTER Primary Care Unavailable ZAINAB WILD MD Attending Unavailable ANIBAL CARTER Primary Care Unavailable Kathy Jacobs Attending Unavailable Mica Araujo Attending Unavailable SHELLEY ORR Primary Care Unavailable Mica Araujo Attending Unavailable Mica Araujo Referring Unavailable SHELLEY ORR Primary Care Unavailable Mica Araujo Attending Unavailable Mica Araujo Referring Unavailable Allergies Allergy Classification Reported Allergen(s) Allergy Type Date of Onset Reaction(s) Facility (8 sources) Bee/Wasp/Ant venom Allergy to [facility] Medications Current Medications Medication Drug Class(es) Dates [...] pack, # 1 packet(s), 0 Refill(s), Pharmacy: [id number], 155, cm, 02/13/21 1:18:00 EDT, [...] mental disorders or infectious disease) (1 source) Abnormal findings on diagnostic imaging of other specified body structures; Translations: [Abnormal findings on diagnostic imaging of other specified body structures] Onset: 09-17-2025 Chronic Other screening for suspected conditions (not mental [...] Test Name Value Interpretation Reference Range Facility 12 Lead EKGon 09-17-2025 12 Lead EKG [facility] [address] [place] [address] 12 Lead EKG 09/17/25 0654 MR#: [id number] Acct: [id number] Name: STACY OLIVO Rep #: [id number] : 1945 80 From: David Quintero MD Attending Dr: Dr. Mica Araujo MD Status: REG CLI Ordering Dr: Mica Araujo MD Date: 09/17/25 Location: [facility] Sex: F C Admitted: Test Reason : PREOP Blood Pressure : */* mmHG Vent. Rate : 66 BPM Atrial Rate : 66 BPM P-R Int : 166 ms QRS Dur : 134 ms QT Int : 486 ms P-R-T Axes : 40 -17 158 degrees QTcB Int : 509 ms Normal sinus rhythm Left bundle branch block Abnormal ECG Confirmed by David Quintero ([id number]), supervising editor news reel RAYMOND RAE ([id number]) on 09/17/2025 10:30:11 AM Referred By: Mica Araujo Confirmed By: David Quintero 09/17/25 1030 Date David Quintero MD CC: ANIBAL QUIÑONES; Dr. Mica Araujo MD Signed Normal [facility] CBC W/Diff, Automatedon 11- 0-2024 Absolute Lymph 1.36 X10 3/uL Normal 0.83-4.51 [facility] Comment on above: Performed By: #### L 500.4050, L100.0100, BTSPAT #### [facility] [address] [place], [address] Absolute Neut 3.0 X10 3/uL Normal 2.0-7.7 [facility] Comment on above: Performed By: #### L 500.4050, L100.0100, BTSPAT #### [facility] [address] [place], [address] Basophils/100 WBC (Bld) 0.6 % Normal 0-1 [facility] Comment on above: Performed By: #### L 500.4050, L100.0100, BTSPAT #### [facility] [address] [place], [address] Eosinophils/100 WBC (Bld) 3.3 % Normal 0-5 [facility] Comment on above: Performed By: #### L 500.4050, L100.0100, BTSPAT #### [facility] [address] [place], [address] Erythrocyte distribution width (RBC) [Ratio] 13.0 % Normal 11.6-14.6 [facility] Comment on above: Performed By: #### L 500.4050, L100.0100, BTSPAT #### [facility] [address] [place], [address] Hematocrit (Bld) [Volume fraction] 41.3 % Normal 37-47 [facility] Comment on above: Performed By: #### L 500.4050, L100.0100, BTSPAT #### [facility] [address] [place], [address] Hemoglobin (Bld) [Mass/Vol] 13.4 g/dL Normal 12.0-15.0 [facility] Comment on above: Performed By: #### L 500.4050, L100.0100, BTSPAT #### [facility] [address] [place], [address] IG% 0.600 Normal 0.0-0.9 [facility] Comment on above: Result Comment: IG% - Immature Granulocytes (promyelocytes, myelocytes and metamyelocytes) > 1% indicates that a LEFT SHIFT is Present. Performed By: #### L 500.4050, L100.0100, BTSPAT #### [facility] [address] [place], [address] Lymphocytes/100 WBC (Bld) 26.6 % Normal 19-41 [facility] Comment on above: Performed By: #### L 500.4050, L100.0100, BTSPAT #### [facility] [address] [place], [address] MCH (RBC) [Entitic mass] 30.2 pg Normal 27.0-32.0 [facility] Comment on above: Performed By: #### L 500.4050, L100.0100, BTSPAT #### [facility] [address] [place], [address] MCHC (RBC) [Mass/Vol] 32.4 g/dL Normal 32-36 [facility] Comment on above: Performed By: #### L 500.4050, L100.0100, BTSPAT #### [facility] [address] [place], [address] MCV (RBC) [Entitic vol] 93.2 fL Normal 81-99 [facility] Comment on above: Performed By: #### L 500.4050, L100.0100, BTSPAT #### [facility] [address] [place], [address] Monocytes/100 WBC (Bld) 9.6 % Normal 0-10 [facility] Comment on above: Performed By: #### L 500.4050, L100.0100, BTSPAT #### [facility] [address] [place], [address] Neutrophils/100 WBC (Bld) 59.3 % Normal 47-70 [facility] Comment on above: Performed By: #### L 500.4050, L100.0100, BTSPAT #### [facility] [address] [place], [address] Nucleated RBC (Bld) [#/Vol] 0 10*3/uL Normal 0-5 [facility] Comment on above: Performed By: #### L 500.4050, L100.0100, BTSPAT #### [facility] [address] [place], [address] Platelet mean volume (Bld) [Entitic vol] 10.6 fL Normal 6.2-12.0 [facility] Comment on above: Performed By: #### L 500.4050, L100.0100, BTSPAT #### [facility] [address] [place], [address] Platelets (Bld) [#/Vol] 264 10*3/uL Normal 150-450 [facility] Comment on above: Performed By: #### L 500.4050, L100.0100, BTSPAT #### [facility] [address] [place], [address] RBC (Bld) [#/Vol] 4.43 10*6/uL Normal 4.2-5.4 [facility] Comment on above: Performed By: #### L 500.4050, L100.0100, BTSPAT #### [facility] [address] [place], [address] RDW SD 45.1 fl High 35.1-43.9 [facility] Comment on above: Performed By: #### L 500.4050, L100.0100, BTSPAT #### [facility] [address] [place], [address] WBC (Bld) [#/Vol] 5.1 10*3/uL Normal 4.4-11.0 [facility] Comment on above: Performed By: #### L 500.4050, L100.0100, BTSPAT #### [facility] [address] [place], [address] Comprehensive Metabolic Prof ripatricia 09-17-2025 Albumin [Mass/Vol] 4.2 g/dL Normal 3.4-4.8 [facility] Comment on above: Performed By: #### L 500.4050, L100.0100, BTSPAT #### [facility] [address] [place], [address] Albumin/Globulin [Mass ratio] 1.5 {ratio} Normal 0.9-2.4 [facility] Comment on above: Performed By: #### L 500.4050, L100.0100, BTSPAT #### [facility] [address] [place], [address] ALK PHOS 87 U/L Normal 35-104 [facility] Comment on above: Performed By: #### L 500.4050, L100.0100, BTSPAT #### [facility] [address] [place], [address] ALT [Catalytic activity/Vol] 14 U/L Normal <=34 [facility] Comment on above: Performed By: #### L 500.4050, L100.0100, BTSPAT #### [facility] [address] [place], [address] AST [Catalytic activity/Vol] 24 U/L Normal <=31 [facility] Comment on above: Performed By: #### L 500.4050, L100.0100, BTSPAT #### [facility] [address] [place], [address] Bilirubin [Mass/Vol] 0.57 mg/dL Normal 0.00-1.30 [facility] Comment on above: Performed By: #### L 500.4050, L100.0100, BTSPAT #### [facility] [address] [place], [address] BUN/CRE 27.2 RATIO High 10-20 [facility] Comment on above: Performed By: #### L 500.4050, L100.0100, BTSPAT #### [facility] [address] [place], [address] Calcium [Mass/Vol] 9.5 mg/dL Normal 7.6-11.0 [facility] Comment on above: Performed By: #### L 500.4050, L100.0100, BTSPAT #### [facility] [address] [place], [address] Chloride [Moles/Vol] 105 mmol/L Normal 98-108 [facility] Comment on above: Performed By: #### L 500.4050, L100.0100, BTSPAT #### [facility] [address] [place], [address] CO2 [Moles/Vol] 27.1 mmol/L Normal 21.0-32.0 [facility] Comment on above: Performed By: #### L 500.4050, L100.0100, BTSPAT #### [facility] [address] [place], [address] Creatinine [Mass/Vol] 0.77 mg/dL Normal 0.70-1.20 [facility] Comment on above: Performed By: #### L 500.4050, L100.0100, BTSPAT #### [facility] [address] [place], [address] GAP 10 Normal 5-15 [facility] Comment on above: Performed By: #### L 500.4050, L100.0100, BTSPAT #### [facility] [address] [place], [address] GFR/1.73 sq M.predicted among non-blacks MDRD (S/P/Bld) [Vol rate/Area] 78 mL/min/{1.73_m2} Normal >60 [facility] Comment on above: Result Comment: mL/m in/1.73m2 CKD-EPI Creatinine Equation (2020) Performed By: #### L 500.4050, L100.0100, BTSPAT #### [facility] [address] [place], [address] Globulin (S) [Mass/Vol] 2.9 g/dL Normal 2.2-4.2 [facility] Comment on above: Performed By: #### L 500.4050, L100.0100, BTSPAT #### [facility] [address] [place], [address] Glucose [Mass/Vol] 100 mg/dL High 70-99 [facility] Comment on above: Performed By: #### L 500.4050, L100.0100, BTSPAT #### [facility] [address] [place], [address] Potassium [Moles/Vol] 4.2 mmol/L Normal 3.3-5.1 [facility] Comment on above: Performed By: #### L 500.4050, L100.0100, BTSPAT #### [facility] [address] [place], [address] Sodium [Moles/Vol] 142 mmol/L Normal 133-145 [facility] Comment on above: Performed By: #### L 500.4050, L100.0100, BTSPAT #### [facility] [address] [place], [address] T PROT 7.0 g/dL Normal 5.9-8.4 [facility] Comment on above: Performed By: #### L 500.4050, L100.0100, BTSPAT #### [facility] [address] [place], [address] Urea nitrogen [Mass/Vol] 21 mg/dL High 4-19 [facility] Comment on above: Performed By: #### L 500.4050, L100.0100, BTSPAT #### [facility] [address] 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 When Was Last Pacemaker Check QUESTION #4 FULL TEXT: You/Your Family Experience fever (hyperthermia) with Anesthesia Last Oral Intake Last Oral intake: Last Oral Intake NPO since Meds taken in AM with sips of water? 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 Female Yes 09/17/25 12:05 HX of Motion Sickness No 09/17/25 12:05 HX of N/V After Surgery No 09/17/25 12:05 Non-Smoker Yes 09/17/25 12:05 Duration of Surgery greater No 09/17/25 12:05 than 60 minutes Number of Risk Factors 2 09/17/25 12:05 PONV Score Moderate Risk 09/17/25 12:05 Height Weight Height Weight: Anesthesia: Height Weight Height 5 ft 1 in 09/13/25 15:36 Respiratory Assessment Respiratory Assessment - library clerical assistant: Respiratory Tract Infection Hx - library clerical assistant Hx Respiratory Tract Infection No 09/17/25 12:05 STOP Sleep Apnea STOP Sleep Apnea - library clerical assistant: STOP Sleep Apnea - library clerical assistant Hx Hypertension No 09/17/25 12:05 Hx Sleep Apnea No 09/17/25 12:05 CPAP BIPAP Do you snore loudly (louder No 09/17/25 12:05 than talking or can be heard Do you often feel tired/ No 09/17/25 12:05 fatigued/ sleepy during daytime? Has anyone observed you stop No 09/17/25 12:05 breathing during sleep? STOP Results Negative 09/17/25 12:05 QUESTION #5 FULL TEXT : Do you snore loudly (louder than talking or can be heard through closed doors)? 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 Specify any problems Hx of Preganancy in last 3 No 09/17/25 12:05 Months Nurse Filling Out Transfusion JZOAMINATA 09/17/25 12:05 Questions: Date: 09/17/25 09/17/25 12:05 Time: 12:06 09/17/25 12:05 Patient unable to answer at this time (ie. confused, unrespo /Reproduction History /Reproductive History - library clerical assistant: /Reproductive Hx- library clerical assistant Hx Now No 09/17/25 12:05 Gestational Age (in weeks): EDC: Hx Hx Para Hx Section SAB No 09/17/25 12:05 Does the father of the baby or his family experience fever w Father of the baby Malignant Hypertension history comment [facility] Medical History (Updated 09/17/25 @ 12:05 by Sylvia Viera) Wears glasses Wears partial dentures Non-smoker Ganglion cyst Heart valve problem Tumors GERD (gastroesophageal reflux disease) Osteopenia Low calcium levels Glaucoma Gallstones Carpal tunnel syndrome Cataracts, bilateral Breast lump Pulmonary embolism UTI (urinary tract infection) Ankle fracture Arthritis Hx of heart valve insufficiency Home Medications ???Medication ???Instructions ???Recorded ???Last Taken ???Type calcium 300 mg-D3 20 mcg-magnesium 1 tab PO QDAY 09/13/25 Unknown H istory 25 mg-coppr 0.5 yn-dwrd-wcce tablet iron 1 tab PO .every other day 09/13/25 Unknown History latanoprost 0.005 % eye drops 1 drp ophthalmic (eye) QPM 5 Unknown History qvnenyux-ppdpfbhe-mgiwe acid 240 1 tab PO .Q (more content not included)... Normal [facility] Type AND Screen - PAT ONLYon 09-17-2025 ABO and Rh group Nom (Bld) Blood group O Rh(D) negative Normal [facility] Comment on above: Order Comment: Surge ry Date: 09/19/2520250919 No N N S Dilation and Curettage Hysteroscopy Symphion/IUD Performed By: #### L 500.4050, L100.0100, BTSPAT #### [facility] [address] [place], [address] Tray Checker Office Visit Reporton 09-13-2025 Tray Checker Office Visit Report [facility] [address], [address] [place] [address] OFFICE VISIT Date of Service: 09/13/25 MR#: [id number] Acct: [id number] Name: STACY OLIVO Rep #: [id number] : 1945 Provider: Dr. 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 Gibran Quiñones PA, revealed thickening of the endometrial lining. - [...] Spends 6 months of the year in [place]. Subjective Sections: FMHx - Denies family history [...] polyps; no (more content not included)... Normal [facility] US PELVIS NON-OB W/TRANSVAGI NALon 08-08-2025 [...] 8:41:56 AM Ordering Provider: ANIBAL QUIÑONES RP [facility] XR RIBS 2 VIEWS LEFTon 08-02 XR [...] 9:26:13 AM Ordering Provider: ANIBAL QUIÑONES RP [facility] .Auto Diffon 08-01-2025 Basophil, Absolute 0.0 10 3/mcL Normal 0.0-0.3 [facility] Comment on above: Performed By: #### E SR, CRP, LIP, ADIFF, DIMER, CMP, CBC, ANEU, GFR, NORMA, TROPHS #### [address] [address] Basophils/100 WBC (Bld) 0.8 % Normal 0.0-2.5 [facility] Comment on above: Performed By: #### E SR, CRP, LIP, ADIFF, DIMER, CMP, CBC, ANEU, GFR, NORMA, TROPHS #### [address] [address] Eosinophil, Absolute 0.1 10 3/mcL Normal 0.0-0.7 [facility] Comment on above: Performed By: #### E SR, CRP, LIP, ADIFF, DIMER, CMP, CBC, ANEU, GFR, NORMA, TROPHS #### [address] [address] Eosinophils/100 WBC (Bld) 1.9 % Normal 0.0-6.0 [facility] Comment on above: Performed By: #### E SR, CRP, LIP, ADIFF, DIMER, CMP, CBC, ANEU, GFR, NORMA, TROPHS #### [address] [address] Lymphocyte, Absolute 1.2 10 3/mcL Normal 0.9-4.3 [facility] Comment on above: Performed By: #### E SR, CRP, LIP, ADIFF, DIMER, CMP, CBC, ANEU, GFR, NORMA, TROPHS #### [address] [address] Lymphocytes/100 WBC (Bld) 24.5 % Normal 20.0-40.0 [facility] Comment on above: Performed By: #### E SR, CRP, LIP, ADIFF, DIMER, CMP, CBC, ANEU, GFR, NORMA, TROPHS #### [address] [address] Monocyte, Absolute 0.3 10 3/mcL Normal 0.1-1.4 [facility] Comment on above: Performed By: #### E SR, CRP, LIP, ADIFF, DIMER, CMP, CBC, ANEU, GFR, NORMA, TROPHS #### [address] [address] Monocytes/100 WBC (Bld) 7.0 % Normal 2.0-13.0 [facility] Comment on above: Performed By: #### E SR, CRP, LIP, ADIFF, DIMER, CMP, CBC, ANEU, GFR, NORMA, TROPHS #### [address] [address] Neutrophils/100 WBC (Bld) 65.8 % Normal 50.0-75.0 [facility] Comment on above: Performed By: #### E SR, CRP, LIP, ADIFF, DIMER, CMP, CBC, ANEU, GFR, NORMA, TROPHS #### [address] [place] [address] .GFRon 08-01-2025 Estimated Glomerular Filtration Rate 80 ml/min/1.73sqm Normal [facility] Comment on above: Result Comment: Stages of [...] DIMER, CMP, CBC, ANEU, GFR, NORMA, TROPHS ####[address] [address] .NEUABSon 08-01-2025 Neutrophil, Absolute 3.1 10 3/mcL Normal 2.3-8.1 [facility] Comment on above: Performed By: #### E SR, CRP, LIP, ADIFF, DIMER, CMP, CBC, ANEU, GFR, NORMA, TROPHS #### [address] [address] AMYon 08-01-2025 Amylase [Catalytic activity/Vol] 36 U/L Normal 25-115 [facility] Comment on above: Performed By: #### E SR, CRP, LIP, ADIFF, DIMER, CMP, CBC, ANEU, GFR, NORMA, TROPHS #### [address] [place], [place] [address] CBCon 08-01-2025 Erythrocyte distribution width (RBC) [Ratio] 14.3 % Normal 11.5-15.5 [facility] Comment on above: Performed By: #### E SR, CRP, LIP, ADIFF, DIMER, CMP, CBC, ANEU, GFR, NORMA, TROPHS #### [address] [address] Hematocrit (Bld) [Volume fraction] 34.5 % Normal 34.0-46.0 [facility] Comment on above: Performed By: #### E SR, CRP, LIP, ADIFF, DIMER, CMP, CBC, ANEU, GFR, NORMA, TROPHS #### [place] [address] Hgb 11.8 G/dL Low 12.0-16.0 [facility] Comment on above: Performed By: #### E SR, CRP, LIP, ADIFF, DIMER, CMP, CBC, ANEU, GFR, NORMA, TROPHS #### [place] [address] MCH (RBC) [Entitic mass] 30.5 pg Normal 27.0-33.0 [facility] Comment on above: Performed By: #### E SR, CRP, LIP, ADIFF, DIMER, CMP, CBC, ANEU, GFR, NORMA, TROPHS #### [place] [address] MCHC 34.3 G/dL Normal 32.0-36.0 [facility] Comment on above: Performed By: #### E SR, CRP, LIP, ADIFF, DIMER, CMP, CBC, ANEU, GFR, NORMA, TROPHS #### [address] [address] MCV (RBC) [Entitic vol] 88.9 fL Normal 80.0-99.0 [facility] Comment on above: Performed By: #### E SR, CRP, LIP, ADIFF, DIMER, CMP, CBC, ANEU, GFR, NORMA, TROPHS #### [address] [address] Platelet 238 10 3/mcL Normal 150-450 [facility] Comment on above: Performed By: #### E SR, CRP, LIP, ADIFF, DIMER, CMP, CBC, ANEU, GFR, NORMA, TROPHS #### [address] [address] Platelet mean volume (Bld) [Entitic vol] 7.7 fL Normal 6.6-10.5 [facility] Comment on above: Performed By: #### E SR, CRP, LIP, ADIFF, DIMER, CMP, CBC, ANEU, GFR, NORMA, TROPHS #### [address] [address] RBC 3.88 10 6/mcL Low 4.10-5.30 [facility] Comment on above: Performed By: #### E SR, CRP, LIP, ADIFF, DIMER, CMP, CBC, ANEU, GFR, NORMA, TROPHS #### [address] [address] WBC 4.7 10 3/mcL Normal 4.5-10.8 [facility] Comment on above: Performed By: #### E SR, CRP, LIP, ADIFF, DIMER, CMP, CBC, ANEU, GFR, NORMA, TROPHS #### [address] [address] CMPon 08-01-2025 Albumin Level 3.5 G/dL Normal 3.4-4.8 [facility] Comment on above: Performed By: #### E SR, CRP, LIP, ADIFF, DIMER, CMP, CBC, ANEU, GFR, NORMA, TROPHS ####[address] [address] Albumin/Globulin [Mass ratio] 1.0 {ratio} Low 1.1-2.5 [facility] Comment on above: Performed By: #### E SR, CRP, LIP, ADIFF, DIMER, CMP, CBC, ANEU, GFR, NORMA, TROPHS ####[address] [address] ALP [Catalytic activity/Vol] 93 U/L Normal 40-135 [facility] Comment on above: Performed By: #### E SR, CRP, LIP, ADIFF, DIMER, CMP, CBC, ANEU, GFR, NORMA, TROPHS ####[address] [address] ALT [Catalytic activity/Vol] 24 U/L Normal 14-59 [facility] Comment on above: Performed By: #### E SR, CRP, LIP, ADIFF, DIMER, CMP, CBC, ANEU, GFR, NORMA, TROPHS ####[address] [address] AST [Catalytic activity/Vol] 16 U/L Normal 10-40 [facility] Comment on above: Performed By: #### E SR, CRP, LIP, ADIFF, DIMER, CMP, CBC, ANEU, GFR, NORMA, TROPHS ####[place] [id number] Bili Total 0.6 mg/dL Normal 0.2-1.0 [facility] Comment on above: Result Comment: Use of this assay is not recommended for patients undergoing treatment with eltrombopag due to the potential for falsely elevated results. Performed By: #### E SR, CRP, LIP, ADIFF, DIMER, CMP, CBC, ANEU, GFR, NORMA, TROPHS ####[place] [address] BUN/Creatinine Ratio 23 ratio Normal 7-27 [facility] Comment on above: Performed By: #### E SR, CRP, LIP, ADIFF, DIMER, CMP, CBC, ANEU, GFR, NORMA, TROPHS ####[place] [phone] Calcium [Mass/Vol] 9.6 mg/dL Normal 8.4-10.[address] [facility] Comment on above: Performed By: #### E SR, CRP, LIP, ADIFF, DIMER, CMP, CBC, ANEU, GFR, NORMA, TROPHS ####[place] [phone] Chloride [Moles/Vol] 106 mmol/L Normal 98-107 [facility] Comment on above: Performed By: #### E SR, CRP, LIP, ADIFF, DIMER, CMP, CBC, ANEU, GFR, NORMA, TROPHS ####[place] [address] [place] [phone] CO2 [Moles/Vol] 31 mmol/L Normal 23-31 [facility] Comment on above: Performed By: #### E SR, CRP, LIP, ADIFF, DIMER, CMP, CBC, ANEU, GFR, NORMA, TROPHS ####[address] [address] Creatinine [Mass/Vol] 0.75 mg/dL Normal 0.51-0.95 [facility] Comment on above: Performed By: #### E SR, CRP, LIP, ADIFF, DIMER, CMP, CBC, ANEU, GFR, NORMA, TROPHS ####[place] [phone] Electrolyte Balance 5.0 mEq/L Normal 4.0-15.0 [facility] Comment on above: Performed By: #### E SR, CRP, LIP, ADIFF, DIMER, CMP, CBC, ANEU, GFR, NORMA, TROPHS ####[place] [address] [place] [address] Globulin 3.5 G/dL Normal 2.7-4.4 [facility] Comment on above: Performed By: #### E SR, CRP, LIP, ADIFF, DIMER, CMP, CBC, ANEU, GFR, NORMA, TROPHS ####[address] [address] Glucose [Mass/Vol] 195 mg/dL High 83-[address] [facility] Comment on above: Performed By: #### E SR, CRP, LIP, ADIFF, DIMER, CMP, CBC, ANEU, GFR, NORMA, TROPHS ####[address] [address] Potassium [Moles/Vol] 3.7 mmol/L Normal 3.5-5.1 [facility] Comment on above: Performed By: #### E SR, CRP, LIP, ADIFF, DIMER, CMP, CBC, ANEU, GFR, NORMA, TROPHS ####[place] [address] [place] [phone] Sodium [Moles/Vol] 142 mmol/L Normal 136-[address] [facility] Comment on above: Performed By: #### E SR, CRP, LIP, ADIFF, DIMER, CMP, CBC, ANEU, GFR, NORMA, TROPHS ####[place] [address] [place], [place] [address] Total Protein 7.0 G/dL Normal 6.4-8.2 [facility] Comment on above: Performed By: #### E SR, CRP, LIP, ADIFF, DIMER, CMP, CBC, ANEU, GFR, NORMA, TROPHS ####[facility] [place], [place] [address] Urea nitrogen [Mass/Vol] 17 mg/dL Normal 7-18 [facility] Comment on above: Performed By: #### E SR, CRP, LIP, ADIFF, DIMER, CMP, CBC, ANEU, GFR, NORMA, TROPHS ####[facility] [place], [place] [address] CRPon 08-01-2025 C-Reactive Protein 0.4 mg/dL High 0.0-0.[address] [facility] Comment on above: Performed By: #### E SR, CRP, LIP, ADIFF, DIMER, CMP, CBC, ANEU, GFR, NORMA, TROPHS #### [place] [address] [place], [place] [address] CT ABD/PELVIS W/ IV CONTRAST ONLYon 08-01-2025 [...] PM Ordering Provider: ANIBAL QUIÑONES RP Normal [facility] DIMERon 08-01-2025 D-Dimer 287 ng/mL D-DU High 0-230 [facility] Comment on above: Result Comment: Resu lts [...] CMP, CBC, ANEU, GFR, NORMA, TROPHS #### [place] [address] [place], [place] [address] ESRon 08-01-2025 Erythrocyte Sed Rate 6 mm/hr Normal 0-30 [facility] Comment on above: Performed By: #### E SR, CRP, LIP, ADIFF, DIMER, CMP, CBC, ANEU, GFR, NORMA, TROPHS #### [address] [address] LABORATORYOrdered By: SYSTEM SYSTEM on 08-01-2025 Albumin [...] ng/L Male: 0-76 ng/L Testing performed on [place] using a homogeneous sandwich chemiluminescent immunoassay based on [employer] technology. Urea nitrogen [Mass/Vol] 17 mg/dL Normal [...] 08-01-2025 Lipase Level 35 U/L Normal 16-77 [facility] Comment on above: Performed By: #### E SR, CRP, LIP, ADIFF, DIMER, CMP, CBC, ANEU, GFR, NORMA, TROPHS ####[address] [place] [address] TROPHSon 08-01-2025 High Sensitivity Troponin I 9 ng/L Normal 0-51 [facility] Comment on above: Result Comment: High Sensitive Troponin I Reference Ranges: Female: 0-51 ng/L Male: 0-76 ng/L Testing performed on [place] using a homogeneous sandwich chemiluminescent immunoassay based on [employer] technology. Performed By: #### E SR, CRP, LIP, ADIFF, DIMER, CMP, CBC, ANEU, GFR, NORMA, TROPHS #### [facility] [address] [place], [place] [address] XR CHEST 2 VIEWSon XR CHEST 2 [...] By: Maverick Gonsales Electronically signed By Jannie uRiz MD Dictated Date: 08/01/2025 3:08:29 PM Prelim Date: 08/01/2025 4:51:23 PM Sign Date: 08/01/2025 4:51:23 PM Ordering Provider: ANIBAL Maria [facility] MR/BMS.Waldemar 07-19-2025 MR/BMS.JUDSONS [facility] Vascular Surgery [address] [place] [address] OFFICE VISIT Date of Service: 07/19/25 MR#: [id number] Acct: [id number] Name: Stacy Olivo Rep #: [id number] : 1945 Provider: NIKHIL Maldonado Age/Sex: 80/F Location: [facility] Status: Signed Intake Vital Signs 07/19/25 10:24 [...] habitus Orientation: alert, awake and oriented x3 HENMT Head: normocephalic and atraumatic Ears: hearing grossly [...] moves all (more content not included)... Normal [facility] Breast Screeningon 2023 IMPRESSION: NEGATIVE There is no mammographic evidence of malignancy. A 1 year screening mammogram is recommended. Hue Espinal M.D. er/penrad:07/12/2024 15:39:50 [employer] Operator(s): Vashti Epstein, [facility] letter sent: Normal over 40 Mammogram BI-RADS: [...] Health, Family Medicine, and Medical/Surgical Oncology, the [facility] has carefully reviewed the data and reached [...] their providers when to stop screening mammograms. [employer] Service Cleaner: Kerwin Searsricesar Date/Time: Jul 04 2024 11:02A Dictated by : HUE ESPINAL MD This examination was interpreted and the report reviewed and electronically signed by: HUE ESPINAL MD on Jul 12 2024 3:39PM EST [facility] * * *Final Report* * * DATE OF EXAM: Jul 04 2024 11:16AM [facility] 0581 - [facility] SCREENING / PROCEDURE REASON: 55527 SCREENING MAMMOGRAM AMAURY WITH CAD * * * * Physician Interpretation * * * * #[id number] - BETH SCREENING BILATERAL DIGITAL SCREENING MAMMOGRAM WITH CAD: 07/04/2024 HISTORY: 63255 Screening Mammogram Amaury With Cad. RESULT: TECHNIQUE: The study was acquired using full field digital technology and interpreted from soft copy. Current study was also evaluated with a Computer Aided Detection (CAD). Comparison is made to exams dated: 06/29/2023 [facility] The breasts are almost entirely fatty. No significant masses, calcifications, or other findings are seen in either breast. There has been no significant interval change. [facility] Provider, Romel Shaw - 07/13/2024 * * *Final Report* * * DATE OF EXAM: Jul 04 2024 11:16AM [facility] 0581 - [facility] SCREENING / PROCEDURE REASON: 99679 SCREENING MAMMOGRAM AMAURY WITH CAD * * * * Physician Interpretation * * * * #[id number] - BETH SCREENING BILATERAL DIGITAL SCREENING MAMMOGRAM WITH CAD: 07/04/2024 HISTORY: 39114 Screening Mammogram Amaury With Cad. RESULT: TECHNIQUE: The study was acquired using full field digital technology and interpreted from soft copy. Current study was also evaluated with a Computer Aided Detection (CAD). Comparison is made to exams dated: 06/29/2023 mammogram and 09/26/2021 mammogram - [facility]. The breasts are almost entirely fatty. No significant masses, calcifications, or other findings are seen in either breast. There has been no significant interval change. IMPRESSION IMPRESSION: NEGATIVE There is no mammographic evidence of malignancy. A 1 year screening mammogram is recommended. Hue blanc/kerwin:07/12/2024 15:39:50 [employer] Operator(s): Vashti Epstein, [facility] letter sent: Normal over 40 Mammogram BI-RADS: [...] Health, Family Medicine, and Medical/Surgical Oncology, the [facility] has carefully reviewed the data and reached [...] their providers when to stop screening mammograms. [employer] Service Cleaner: Kerwin Transcribe Date/Time: Jul 04 2024 11:02A Dictated by : HUE ESPINAL MD This examination was interpreted and the report reviewed and electronically signed by: HUE ESPINAL MD on Jul 12 2024 3:39PM EST [facility] MG Breast ScreeningOrdered B y: [facility]20[facility] HNO ID: [id number] Author: COORDINATOR, MAMMOGRAPHY, ? Service: ? Author Type: Physician Type: Letter Filed: 07/12/2024 15:39 Note Text: July 13, 2024 PID: [id number] Stacy Olivo [address] [place] [address] Dear Ms. Olivo, We are pleased to [...] report will be kept on file at [facility] as part of your permanent medical record and are available for your continuing care. Thank you for allowing us to help in meeting your health care needs. Sincerely, Dr. Espinal Interpreting Radiologist [facility] (Normal over 40) Normal [facility] DXA Skeletal system.axial Vi ews for bone densityOrdered By: Ccf Provider on 07-05-2024 LOWEST T-SCORE -2.2 [facility] DXA Skeletal system.axial Vi ews for bone [...] FOR MORE INFORMATION ABOUT DIAGNOSIS AND TREATMENT: [facility] for Osteoporosis and Metabolic Bone Disease:? www.ccf.org/arthritis/ost eo National Osteoporosis Foundation:? www.nof.org International Society of Clinical Densitometry www.iscd.org Home Rest[employer] Service Cleaner: SWATI Transcribe Date/Time: Jul 05 2024 5:15P Dictated by : DAVID NGO MD This examination was interpreted and the report reviewed and electronically signed by: DAVID NGO MD on Jul 05 2024 5:16PM EST [facility] * * *Final Report* * * DATE OF EXAM: Jul 04 2024 10:58AM [facility] 0804 - BD DXA - AXIAL SKELETON B / PROCEDURE REASON: Z78.0 * * * * Physician Interpretation * * * * EXAMINATION: DXA BONE DENSITOMETRY BD DXA - AXIAL SKELETON PATIENT DEMOGRAPHICS: Age: 79 years, Gender: Female SCANNER INFORMATION: DXA Model: B[employer] Mobile B - [employer] Horizon [id number] Date Scanned: 07/04/2024 10:58 AM CLINICAL HISTORY: [...] had a previous bone density in the [facility] or the previous bone density was performed on a different DXA machine (new, updated model or different location) within the [facility]. VERTEBRAL FRACTURE ASSESSMENT Not performed. TRABECULAR BONE ASSESSMENT TBS not performed: not ordered [facility] Provider, Romel Shaw - 07/05/2024 * * *Final Report* * * DATE OF EXAM: Jul 04 2024 10:58AM [facility] 0804 - BD DXA - AXIAL SKELETON B / PROCEDURE REASON: Z78.0 * * * * Physician Interpretation * * * * EXAMINATION: DXA BONE DENSITOMETRY BD DXA - AXIAL SKELETON PATIENT DEMOGRAPHICS: Age: 79 years, Gender: Female SCANNER INFORMATION: DXA Model: [employer] Mobile B - H[employer] Horizon [id number] Date Scanned: 07/04/2024 10:58 AM CLINICAL HISTORY: [...] had a previous bone density in the [facility] or the previous bone density was performed on a different DXA machine (new, updated model or different location) within the [facility]. VERTEBRAL FRACTURE ASSESSMENT Not performed. TRABECULAR BONE [...] FOR MORE INFORMATION ABOUT DIAGNOSIS AND TREATMENT: [facility] for Osteoporosis and Metabolic Bone Disease:? www.ccf.org/arthritis/ost eo National Osteoporosis Foundation:? www.nof.org International Society of Clinical Densitometry www.iscd.org Home Restoration Service Cleaner: SWATI Transcribe Date/Time: Jul 05 2024 5:15P Dictated by : DAVID NGO MD This examination was interpreted and the report reviewed and electronically signed by: DAVID NGO MD on Jul 05 2024 5:16PM [facility] BD DXA - AXIAL SKELETONon BD DXA [...] years, Gender: Female SCANNER INFORMATION: DXA Model: [employer] Mobile B - H[employer] Horizon [id number] Date Scanned: 07/04/2024 10:58 AM CLINICAL HISTORY: [...] had a previous bone density in the [facility] or the previous bone density was performed on a different DXA machine (new, updated model or different location) within the [facility]. VERTEBRAL FRACTURE ASSESSMENT Not performed. TRABECULAR BONE [...] FOR MORE INFORMATION ABOUT DIAGNOSIS AND TREATMENT: [facility] for Osteoporosis and Metabolic Bone Disease:? www.ccf.org/arthritis/ost eo National Osteoporosis Foundation:? www.nof.org International Society of Clinical Densitometry www.iscd.org Home Rest[employer] Service Cleaner: SWATI Transcribe Date/Time: Jul 05 2024 5:15P Dictated by : DAVID NGO MD This examination was interpreted and the report reviewed and electronically signed by: DAVID NGO MD on Jul 05 2024 5:16PM EST [id number] -2.2 [facility] DXA Skeletal system.axial Vi ews for bone densityon 07-04-2024 Radiology Study observation (narrative) [facility] SCREENINGon 07-04-2024 BETH SCREENING * * *Final Report* * * DATE OF EXAM: Jul 04 2024 11:16AM [facility] 0581 - [facility] SCREENING / PROCEDURE REASON: 39104 SCREENING MAMMOGRAM AMAURY WITH CAD * * * * Physician Interpretation * * * * #[id number] - BETH SCREENING BILATERAL DIGITAL SCREENING MAMMOGRAM WITH CAD: 07/04/2024 HISTORY: 80099 Screening Mammogram Amaury With Cad. RESULT: TECHNIQUE: The study was acquired using full field digital technology and interpreted from soft copy. Current study was also evaluated with a Computer Aided Detection (CAD). Comparison is made to exams dated: 06/29/2023 mammogram and 09/26/2021 mammogram - [facility]. The breasts are almost entirely fatty. No significant masses, calcifications, or other findings are seen in either breast. There has been no significant interval change. IMPRESSION: NEGATIVE There is no mammographic evidence of malignancy. A 1 year screening mammogram is recommended. Hue blanc/kerwin:07/12/2024 15:39:50 [employer] Operator(s): Vashti Epstein, [facility] letter sent: Normal over 40 Mammogram BI-RADS: [...] Health, Family Medicine, and Medical/Surgical Oncology, the [facility] has carefully reviewed the data and reached [...] their providers when to stop screening mammograms. Home [employer] Service Cleaner: Kerwin Transcribe Date/Time: Jul 04 2024 11:02A Dictated by : HUE ESPINAL MD This examination was interpreted and the report reviewed and electronically signed by: HUE ESPINAL MD on Jul 12 2024 3:39PM EST [id number] Normal [facility] MG Breast Screeningon 2023 Radiology Study observation (narrative) [facility] 25(OH)D3 SerPl-mCncon 2023 25-hydroxyvitamin D3 [Mass/Vol] 75.1 ng/mL Normal 30.0-100.0 [facility] Comment on above: Order Comment: Speci men Type: BLOOD SPECIMEN Ordering Facility: [facility] Address: [address], [place] [address] Result Comment: Defi ciency\\X09\\Less than 20 ng/mL Insufficiency\\X09\\20 - Less than 30 ng/mL Sufficiency\\X09\\30 - 100 ng/mL Performed By: #### 1 989-3 #### [facility] CLIA [id number] [address] [place] [address] [place] CBC panel Auto (Bld)on 05-09 Erythrocyte distribution width (RBC) [Ratio] 13.5 % Normal 11.5-15.0 [facility] Comment on above: Order Comment: Sallyi men Type: BLOOD SPECIMEN Ordering Facility: [facility] Address: [facility] [address], [place] [address] Performed By: #### 5 8410-2 #### [facility] CLIA [id number] [address] [place] [address] [place] Hematocrit (Bld) [Volume fraction] 39.6 % Normal 36.0-46.0 [facility] Comment on above: Order Comment: Speci men Type: BLOOD SPECIMEN [facility]ing Facility: [facility] Address: [facility] [address], [place] [address] Performed By: #### 5 8410-2 #### [facility] CLIA [id number] [address] [place] [address] [place] Hemoglobin (Bld) [Mass/Vol] 12.9 g/dL Normal 11.5-15.5 [facility] Comment on above: Order Comment: Sallyi men Type: BLOOD SPECIMEN Ordering Facility: [facility] Address: [facility], [place] [address] Performed By: #### 5 8410-2 #### [facility] CLIA [id number] [address] [place] [address] MCH (RBC) [Entitic mass] 30.8 pg Normal 26.0-34.0 [facility] Comment on above: Order Comment: Speci men Type: BLOOD SPECIMEN Ordering Facility: [facility] Address: [address], [place] [id number] Performed By: #### 5 8410-2 #### [facility] CLIA [id number] [address] [place] [address] OF [facility] MCHC (RBC) [Mass/Vol] 32.6 g/dL Normal 30.5-36.0 [facility] Comment on above: Order Comment: Speci men Type: BLOOD SPECIMEN Ordering Facility: [facility] Address: [facility], [place] [id number] Performed By: #### 5 8410-2 #### [facility] CLIA [id number] [address] [place] [address] [place] MCV (RBC) [Entitic vol] 94.5 fL Normal 80.0-100.0 [facility] Comment on above: Order Comment: Speci men Type: BLOOD SPECIMEN Ordering Facility: [facility] Address: [facility], [place] [id number] Performed By: #### 5 8410-2 #### [facility] CLIA [id number] [address] [place] [address] [place] Nucleated RBC (Bld) [#/Vol] 10*3/uL Normal <0.01 [facility] Comment on above: Order Comment: Speci men Type: BLOOD SPECIMEN Ordering Facility: [facility] Address: [address], [place] [id number] Performed By: #### 5 8410-2 #### [facility] CLIA [id number] [address] [place] [address] OF [place] Platelet mean volume (Bld) [Entitic vol] 11.1 fL Normal 9.0-12.7 [facility] Comment on above: Order Comment: Speci men Type: BLOOD SPECIMEN Ordering Facility: [facility] Address: [address], [place] [address] Performed By: #### 5 8410-2 #### [facility] CLIA [id number] [address] [place] [address] [facility] [place] Platelets (Bld) [#/Vol] 262 10*3/uL Normal 150-400 [facility] Comment on above: Order Comment: Speci men Type: BLOOD SPECIMEN Ordering Facility: [facility] Address: [address], [place] [address] Performed By: #### 5 8410-2 #### [facility] CLIA [id number] [address] [place] [address] [place] RBC (Bld) [#/Vol] 4.19 10*6/uL Normal 3.90-5.20 [facility] Comment on above: Order Comment: Speci men Type: BLOOD SPECIMEN [facility]ing Facility: [facility] Address: [address], [place] [address] Performed By: #### 5 8410-2 #### [facility] CLIA [id number] [address] [place] [address] OF [place] WBC (Bld) [#/Vol] 4.98 10*3/uL Normal 3.70-11.00 [facility] Comment on above: Order Comment: Speci men Type: BLOOD SPECIMEN [facility]ing Facility: [facility] Address: [address], [place] [address] Performed By: #### 5 8410-2 #### [facility] CLIA [id number] [address] [place] [address] [facility] [place] Comprehensive metabolic 2000 panelon 05-09-2024 Albumin [Mass/Vol] 3.7 g/dL Normal 3.2-5.0 [facility] Comment on above: Order Comment: Speci men Type: BLOOD SPECIMEN [facility]ing Facility: [facility] Address: [address], [place] [address] Performed By: #### 2 276-4, 39572-9, 84618-3, 3016-3 #### [facility] CLIA [id number] [address] [place] [address] [place] ALP [Catalytic activity/Vol] 92 U/L Normal 45-117 [facility] Comment on above: Order Comment: Speci men Type: BLOOD SPECIMEN Ordering Facility: [facility] Address: [facility] [address], [place] [address] Performed By: #### 2 276-4, 68278-1, 11920-2, 3016-3 #### [facility] CLIA [id number] [address] [place] [address] [place] ALT [Catalytic activity/Vol] 19 U/L Normal 13-61 [facility] Comment on above: Order Comment: Speci men Type: BLOOD SPECIMEN Ordering Facility: [facility] Address: [address] [place] [address] [address], [place] [address] Result Comment: Resu lts may be falsely depressed after the administration of Sulfasalazine and/or Sulfapyridine. Performed By: #### 2 276-4, 09574-8, 64577-3, 3016-3 #### [facility] CLIA [id number] [address] [place], [place] [id number] [place] [facility] Anion gap [Moles/Vol] mmol/L Low 5-16 [facility] Comment on above: Order Comment: Speci men Type: BLOOD SPECIMEN Ordering Facility: [facility] Address: [facility] [address], [place] [address] Performed By: #### 2 276-4, 83365-9, 16246-1, 3016-3 #### [facility] CLIA [id number] [address] [place] [address] [place] AST [Catalytic activity/Vol] 21 U/L Normal 8-34 [facility] Comment on above: Order Comment: Speci men Type: BLOOD SPECIMEN Ordering Facility: [facility] Address: [facility] [address], [place] [address] Result Comment: Resu lts may be falsely depressed after the administration of Sulfasalazine and/or Sulfapyridine. Performed By: #### 2 276-4, 75058-0, 32762-0, 3016-3 #### [facility] CLIA [id number] [address] [place], [place] [address] [place] Bilirubin [Mass/Vol] 0.8 mg/dL Normal 0.2-1.0 [facility] Comment on above: Order Comment: Speci men Type: BLOOD SPECIMEN [facility]ing Facility: [facility] Address: [address], [place] [address] Performed By: #### 2 276-4, 66317-9, 34531-0, 3016-3 #### [facility] CLIA [id number] [address] [place] [address] [place] Calcium [Mass/Vol] 9.7 mg/dL Normal 8.5-10.5 [facility] Comment on above: Order Comment: Speci men Type: BLOOD SPECIMEN Ordering Facility: [facility] Address: [address], [place] [address] Performed By: #### 2 276-4, 51955-4, 89868-3, 3016-3 #### [facility] CLIA [id number] [address] [place] [address] [place] Chloride [Moles/Vol] 110 mmol/L High 98-107 [facility] Comment on above: Order Comment: Speci men Type: BLOOD SPECIMEN [facility]ing [facility]: [facility] Address: [address], [place] [address] Performed By: #### 2 276-4, 35756-3, 03746-4, 3016-3 #### [facility] CLIA [id number] [address] [place], [place] [address] [place] CO2 [Moles/Vol] 28 mmol/L Normal 21-32 [facility] Comment on above: Order Comment: Speci men Type: BLOOD SPECIMEN Ordering Facility: [facility] Address: [address], [place] [address] Performed By: #### 2 276-4, 07683-1, 67960-9, 3015-3 #### [facility] CLIA [id number] [address] [place], [place] [address] [place] Creatinine [Mass/Vol] 0.65 mg/dL Normal 0.51-0.95 [facility] Comment on above: Order Comment: Maegan tyler Type: BLOOD SPECIMEN Ordering Facility: [facility] Address: [address], [place] [address] Result Comment: Mica ents receiving either N-Acetylcysteine (NAC) or Metamizole prior to venipuncture, may have falsely depressed results. Performed By: #### 2 276-4, 19721-3, 79490-5, 3015-3 #### [facility] CLIA [id number] [address] [place] [address] Creatinine and Glomerular filtration rate.predicted panel (S/P/Bld) 89 mL/min/1.73m??? Normal >=60 [facility] Comment on above: Order Comment: Maegan tyler Type: BLOOD SPECIMEN Ordering Facility: [facility] Address: [address], [place] [address] Result Comment: Vonda mated Glomerular Filtration Rate [...] actual GFR. Performed By: #### 2 276-4, 25116-4, 52843-2, 6-3 #### [facility] CLIA [id number] [address] [place] [address] [place] Glucose [Mass/Vol] 107 mg/dL High 70-100 [facility] Comment on above: Order Comment: Maegan tyler Type: BLOOD SPECIMEN Ordering Facility: [facility] Address: [address], [place] [address] Result Comment: The [place] Diabetes Association (ADA) provides guidance for cutoff [...] Standards of Medical Care in Diabetes 2016, [place] [employer]. Diabetes Care. 2016.39(Suppl 1). Results may be falsely elevated after the administration of Sulfapyridine. Results may be falsely depressed after the administration of Sulfasalazine. Performed By: #### 2 276-4, 19721-1, 42522-9, 3016-3 #### [facility] CLIA [id number] [address] [place] [address] [place] Potassium [Moles/Vol] 4.0 mmol/L Normal 3.5-5.1 [facility] Comment on above: Order Comment: Specjosselin tyler Type: BLOOD SPECIMEN Ordering Facility: [facility] Address: [facility] [address] [id number] Performed By: #### 2 276-4, 36318-5, 55499-8, 301-3 #### [facility] CLIA [id number] [address] [place] [address] [place] Protein [Mass/Vol] 6.8 g/dL Normal 6.0-8.5 [facility] Comment on above: Order Comment: Speci men Type: BLOOD SPECIMEN Ordering Facility: [facility] Address: [address], [place] [id number] Performed By: #### 2 276-4, 12280-5, 79565-8, 3016-3 #### [facility] CLIA [id number] [address] [place] [address] [place] Sodium [Moles/Vol] 140 mmol/L Normal 136-145 [facility] Comment on above: Order Comment: Speci men Type: BLOOD SPECIMEN Ordering Facility: [facility] Address: [address], [place] [address] Performed By: #### 2 276-4, 74039-7, 51222-3, 6-3 #### [facility] CLIA [id number] [address] [place] [address] [place] Urea nitrogen [Mass/Vol] 19 mg/dL Normal 7-26 [facility] Comment on above: Order Comment: Maegan tyler Type: BLOOD SPECIMEN Ordering Facility: [facility] Address: [address], [place] [address] Performed By: #### 2 276-4, 09191-7, 42402-9, 6-3 #### [facility] CLIA [id number] [address] [place], [place] [address] [place] Ferritin SerPl-mCncon 2023 Ferritin [Mass/Vol] 22.2 ng/mL Normal 8.0-307.0 [facility] Comment on above: Order Comment: Maegan tyler Type: BLOOD SPECIMEN Ordering Facility: [facility] Address: [address], [place] [address] Performed By: #### 2 276-4, 76679-1, 61257-1, 3015-3 #### [facility] CLIA [id number] [address] [place], [place] [address] [place] Iron and Iron binding capaci ty panelon 05-09-2024 Iron [Mass/Vol] 148 ug/dL Normal 50-170 [facility] Comment on above: Order Comment: Maegan tyler Type: BLOOD SPECIMEN Ordering Facility: [facility] Address: [address], [place] [address] Result Comment: Mica ents treated with metal-binding drugs (e.g.deferoxamine) may have depressed iron values, as chelated iron may not properly react in the Siemens iron assay. Performed By: #### 2 276-4, 28105-7, 66944-4, 6-3 #### [facility] CLIA [id number] [address] [place], [place] [address] [place] Iron binding capacity [Mass/Vol] 370 ug/dL Normal 221-481 [facility] Comment on above: Order Comment: Maegan tyler Type: BLOOD SPECIMEN Ordering Facility: [facility] Address: [address] [place] [address] [address], [place] [address] Performed By: #### 2 276-4, 12809-0, 12901-9, 3016-3 #### [facility] CLIA [id number] [address] [place] [address] Iron/TIBC [Molar ratio] 40.0 % Normal 22.0-44.0 [facility] Comment on above: Order Comment: Maegan tyler Type: BLOOD SPECIMEN Ordering Facility: [facility] Address: [address] [place] [address] [address], [place] [address] Performed By: #### 2 276-4, 24112-0, 53919-8, 3016-3 #### [facility] CLIA [id number] [address] [place] [address] [place] TSH SerPl-aCncon 05-09-2024 TSH Qn 1.447 m[IU]/L Normal 0.358-3.740 [facility] Comment on above: Order Comment: Maegan tyler Type: BLOOD SPECIMEN Ordering Facility: [facility] Address: [address] [place] [address] [address], [place] [address] Result Comment: 3rd generation ultra sensitive TSH. Performed By: #### 2 276-4, 62538-2, 38174-6, 3016-3 #### [facility] CLIA [id number] [address] [place] [address] [place] BD BONE DENSITY DEXA AXIAL S KELETONon 06-29-2023 BD BONE DENSITY DEXA AXIAL SKELETON [...] 06/29/2023 11:44:12 AM Ordering Provider: ANIBAL [facility] ([place]) [place] MAMMOGRAM SCREENING BILAT ERAL W/TOMOon 06-29-2023 [place] MAMMOGRAM SCREENING BILATERAL W/EULALIO ORIGINAL FROM: [address] [address] PROCEDURE FOR: STACY OLIVO [address] [place] [id number] Home: PID#: [id number] Exam#: [id number] : 1945 Age: 78 TO: ANIBAL QUIÑONES PA-C [address], [place] [address] EXAMINATION: SCREENING DIGITAL BILATERAL MAMMOGRAM WITH TOMOSYNTHESIS, [...] 06/29/2023 8:22:29 PM Ordering Provider: ANIBAL QUIÑONES [employer] Operator: SYLVIA PETTIT RT (R)(M) letter sent: Normal BI-RADS 1 and 2 Mammogram BI-RADS: 1 Negative Normal [facility] ([place]) MRI KNEE W/O CONTRAST RIGHTo n 05-26-2023 [...] Date: 05/26/2023 9:58:31 AM Ordering Provider: ANIBAL [facility] ([place] XR KNEE THREE VIEWS LEFTon 0 05-11-2023 [...] 05/11/2023 2:38:36 AM Ordering Provider: ANIBAL QUIÑONES [facility] ([place] XR KNEE THREE VIEWS RIGHTon 05-11-2023 XR [...] 05/11/2023 2:38:36 AM Ordering Provider: ANIBAL QUIÑONES [facility] ([place]) .GFRon 05-04-2023 GFR >60 [facility] ([place]) Comment on above: Result Comment: GFR Population [...] L IPID, CMP, GFR, TSH, HGMP #### [address] [address] GFR Non- >60 Normal [facility] ([place]) Comment on above: Result Comment: GFR Population [...] L IPID, CMP, GFR, TSH, HGMP #### [address] [address] CMPon 05-04-2023 Albumin Level 3.9 G/dL Normal 3.2-4.8 [facility] ([place]) Comment on above: Performed By: #### L IPID, CMP, GFR, TSH, HGMP #### [address] [address] Albumin/Globulin [Mass ratio] 1.1 {ratio} Normal 0.9-1.6 [facility] ([place]) Comment on above: Performed By: #### L IPID, CMP, GFR, TSH, HGMP #### [address] [address] ALP [Catalytic activity/Vol] 95 U/L Normal 38-126 [facility] ([place] Comment on above: Performed By: #### L IPID, CMP, GFR, TSH, HGMP #### [address] [address] ALT [Catalytic activity/Vol] 19 U/L Normal 10-49 [facility] ([place] Comment on above: Performed By: #### L IPID, CMP, GFR, TSH, HGMP #### [address] [address] AST [Catalytic activity/Vol] 19 U/L Normal 8-34 [facility] ([place] Comment on above: Performed By: #### L IPID, CMP, GFR, TSH, HGMP #### [address] [address] Bili Total 0.60 mg/dL Normal 0.20-1.20 [facility] ([place]) Comment on above: Result Comment: Use of this assay is not recommended for patients undergoing treatment with eltrombopag due to the potential for falsely elevated results. Performed By: #### L IPID, CMP, GFR, TSH, HGMP #### [place] [address] BUN/Creatinine Ratio 31.8 ratio High 10.0-22.0 [facility] ([place] Comment on above: Performed By: #### L IPID, CMP, GFR, TSH, HGMP #### [address] [address] Calcium [Mass/Vol] 10.0 mg/dL Normal 8.7-10.4 [facility] ([place] Comment on above: Performed By: #### L IPID, CMP, GFR, TSH, HGMP #### [address] [address] Chloride [Moles/Vol] 105 mmol/L Normal 98-110 [facility] ([place] Comment on above: Performed By: #### L IPID, CMP, GFR, TSH, HGMP #### [address] [address] CO2 [Moles/Vol] 28 mmol/L Normal 22-32 [facility] ([place] Comment on above: Performed By: #### L IPID, CMP, GFR, TSH, HGMP #### [address] [address] Creatinine [Mass/Vol] 0.66 mg/dL Normal 0.50-1.20 [facility] ([place] Comment on above: Performed By: #### L IPID, CMP, GFR, TSH, HGMP #### [address] [address] Electrolyte Balance 10.0 mEq/L Normal 4.0-15.0 [facility] ([place]) Comment on above: Performed By: #### L IPID, CMP, GFR, TSH, HGMP #### [address] [address] Globulin 3.4 G/dL Normal 1.5-3.8 [facility] ([place] Comment on above: Performed By: #### L IPID, CMP, GFR, TSH, HGMP #### [address] [address] Glucose [Mass/Vol] 97 mg/dL Normal 82-115 [facility] ([place] Comment on above: Performed By: #### L IPID, CMP, GFR, TSH, HGMP #### [address] [address] Potassium [Moles/Vol] 3.9 mmol/L Normal 3.5-5.0 [facility] ([place] Comment on above: Performed By: #### L IPID, CMP, GFR, TSH, HGMP #### [address] [address] Sodium [Moles/Vol] 143 mmol/L Normal 136-145 [facility] ([place] Comment on above: Performed By: #### L IPID, CMP, GFR, TSH, HGMP #### [address] [address] Total Protein 7.3 G/dL Normal 5.7-8.2 [facility] ([place]) Comment on above: Result Comment: No te - New Reference Range in effect 20 Performed By: #### L IPID, CMP, GFR, TSH, HGMP #### [place] [address] Urea nitrogen [Mass/Vol] 21.0 mg/dL Normal 8.0-22.0 [facility] ([place] Comment on above: Performed By: #### L IPID, CMP, GFR, TSH, HGMP #### [place] [address] HGMPon 05-04-2023 Erythrocyte distribution width (RBC) [Ratio] 14.5 % Normal 11.5-15.5 [facility] ([place] Comment on above: Performed By: #### L IPID, CMP, GFR, TSH, HGMP #### [place] [address] Hematocrit (Bld) [Volume fraction] 40.5 % Normal 34.0-46.0 [facility] ([place] Comment on above: Performed By: #### L IPID, CMP, GFR, TSH, HGMP #### [place] [address] Hgb 13.3 G/dL Normal 12.0-16.0 [facility] ([place] Comment on above: Performed By: #### L IPID, CMP, GFR, TSH, HGMP #### [place] [id number] MCH (RBC) [Entitic mass] 30.3 pg Normal 27.0-33.0 [facility] ([place] Comment on above: Performed By: #### L IPID, CMP, GFR, TSH, HGMP #### [place] [address] MCHC 32.8 G/dL Normal 32.0-36.0 [facility] ([place] Comment on above: Performed By: #### L IPID, CMP, GFR, TSH, HGMP #### [place] [address] MCV (RBC) [Entitic vol] 92.2 fL Normal 80.0-99.0 [facility] ([place] Comment on above: Performed By: #### L IPID, CMP, GFR, TSH, HGMP #### [address] [address] Platelet 235 10 3/mcL Normal 150-450 [facility] ([place] Comment on above: Performed By: #### L IPID, CMP, GFR, TSH, HGMP #### [place] [id number] Platelet mean volume (Bld) [Entitic vol] 9.7 fL Normal 6.6-10.5 [facility] ([place] Comment on above: Performed By: #### L IPID, CMP, GFR, TSH, HGMP #### [place] [address] RBC 4.39 10 6/mcL Normal 4.10-5.30 [facility] ([place] Comment on above: Performed By: #### L IPID, CMP, GFR, TSH, HGMP #### [place] [address] WBC 7.2 10 3/mcL Normal 4.5-10.8 [facility] ([place] Comment on above: Performed By: #### L IPID, CMP, GFR, TSH, HGMP #### [address] [address] LIPIDon 05-04-2023 Cholesterol [Mass/Vol] 235 mg/dL High 50-199 [facility] ([place] Comment on above: Result Comment: Chol esterol Reference Interval: Less than 200 Desirable 200-239 Borderline high risk 240 and above High risk Performed By: #### L IPID, CMP, GFR, TSH, HGMP #### [address] [address] Cholesterol in HDL [Mass/Vol] 60 mg/dL High 40-59 [facility] ([place] Comment on above: Performed By: #### L IPID, CMP, GFR, TSH, HGMP #### [place] [id number] Cholesterol in LDL [Mass/Vol] 123 mg/dL Normal 0-129 [facility] ([place] Comment on above: Performed By: #### L IPID, CMP, GFR, TSH, HGMP #### [address] [address] Triglyceride [Mass/Vol] 261 mg/dL High 3-149 [facility] ([place] Comment on above: Performed By: #### L IPID, CMP, GFR, TSH, HGMP #### [address] [address] TSHon 05-04-2023 TSH 1.257 mIU/mL Normal 0.550-4.780 [facility] ([place]) Comment on above: Result Comment: No te - New Reference Range in effect 20 Performed By: #### L IPID, CMP, GFR, TSH, HGMP #### [address] [address] URINE CULTUREon 03-14-2022 Bacteria identified Cx Nom [...] LEVOFLOXACIN <2 S MEROPENEM <[address] [facility] Comment on above: Performed By: #### M 100.65744 #### [facility] [address] [place] [address] URINE CULTUREon 11-07-2021 Bacteria identified Cx Nom (U) URINE RESULT LESS THAN 10,000 COLONIES PER ML Normal [facility] Comment on above: Performed By: #### M 100.19221 #### [facility] [address] [place] [address] FOOT COMP MIN 3 VWS RTon FOOT [...] M.D. Signed By: SUSANNAH ROBLES M.D. Normal [facility] CBCon 06-10-2021 Erythrocyte distribution width (RBC) [Ratio] 12.8 % Normal 11-14.5 [facility] Comment on above: Performed By: #### L 200.83465 #### [facility] [address] [place] [address] Hematocrit (Bld) [Volume fraction] 41.9 % Normal 35.0-47.0 [facility] Comment on above: Performed By: #### L 200.62311 #### [facility] [address] [place] [address] Hemoglobin (Bld) [Mass/Vol] 13.5 g/dL Normal 11.5-15.5 [facility] Comment on above: Performed By: #### L 200.50754 #### [facility] [address] [place] [address] MCHC (RBC) [Mass/Vol] 32.2 g/dL Normal 32.0-36.0 [facility] Comment on above: Performed By: #### L 200.90847 #### [facility] [address] [place] [address] MCV (RBC) [Entitic vol] 92.5 fL Normal 80.0-99.0 [facility] Comment on above: Performed By: #### L 200.20724 #### [facility] [address] [place] [address] Nucleated RBC/100 WBC (Bld) [Ratio] 0.0 % Normal Less than 1 [facility] Comment on above: Performed By: #### L 200.74683 #### [facility] [address] [place] [address] Platelet mean volume (Bld) [Entitic vol] 11.6 fL Normal 9.4-12.4 [facility] Comment on above: Performed By: #### L 200.71108 #### [facility] [address] [place] [address] PLT 258 K/CU MM Normal 150-450 [facility] Comment on above: Performed By: #### L 200.96163 #### [facility] [address] [place] [address] RBC 4.53 M/CU MM Normal 3.90-5.30 [facility] Comment on above: Performed By: #### L 200.77642 #### [facility] [address] [place] [address] WBC 5.8 K/CUMM Normal 4.5-11.0 [facility] Comment on above: Performed By: #### L 200.06779 #### [facility] [address] [place] [address] CMPon 06-10-2021 Albumin [Mass/Vol] 4.1 g/dL Normal 3.2-5.0 [facility] Comment on above: Performed By: #### L 550.24369, L500.44919, L500.43102, L500.40794, L500.15548 #### [facility] [address] [place] [address] Albumin/Globulin [Mass ratio] 1.3 {ratio} Normal 0.8-2.0 [facility] Comment on above: Performed By: #### L 550.34128, L500.19572, L500.90772, L500.10324, L500.19509 #### [facility] [place] [address] ALK PHOS 103 U/L Normal 45-117 [facility] Comment on above: Performed By: #### L 550.34328, L500.56125, L500.21018, L500.42131, L500.59032 #### [facility] [address] [place] [address] ALT [Catalytic activity/Vol] 22 U/L Normal 13-61 [facility] Comment on above: Result Comment: RESU LTS MAY BE FALSELY DEPRESSED AFTER THE ADMINISTRATION OF SULFASALAZINE AND/OR SULFAPYRIDINE. Performed By: #### L 550.05298, L500.47446, L500.60046, L500.72263, L500.32239 #### [facility] [address] [place] [address] Anion gap [Moles/Vol] 6 mmol/L Normal 5-16 [facility] Comment on above: Performed By: #### L 550.46238, L500.80025, L500.33867, L500.67196, L500.72498 #### [facility] [address] [place] [address] AST [Catalytic activity/Vol] 22 U/L Normal 8-34 [facility] Comment on above: Result Comment: RESU LTS MAY BE FALSELY DEPRESSED AFTER THE ADMINISTRATION OF SULFASALAZINE AND/OR SULFAPYRIDINE. Performed By: #### L 550.66892, L500.95751, L500.96623, L500.12100, L500.42747 #### [facility] [address] [place], [place] [address] BILI TOTAL 0.50 MG/DL Normal 0.2-1.0 [facility] Comment on above: Performed By: #### L 550.81833, L500.41867, L500.44502, L500.39620, L500.88473 #### [facility] [place] [address] Calcium [Mass/Vol] 10.5 mg/dL Normal 8.5-10.5 [facility] Comment on above: Result Comment: NOTE NEW NORMAL RANGE DUE TO REAGENT CHANGE Performed By: #### L 550.73944, L500.84234, L500.94770, L500.02995, L500.58971 #### [facility] [place] [address] Chloride [Moles/Vol] 109 mmol/L High 98-107 [facility] Comment on above: Performed By: #### L 550.90873, L500.64481, L500.73087, L500.12550, L500.28343 #### [facility] [address] [place] [address] CO2 [Moles/Vol] 28.0 mmol/L Normal 21-32 [facility] Comment on above: Performed By: #### L 550.96058, L500.10474, L500.81596, L500.95815, L500.10547 #### [facility] [place] [address] Creatinine [Mass/Vol] 0.67 mg/dL Normal 0.510-0.950 [facility] Comment on above: Result Comment: Mica ents receiving either N-Acetylcysteine (NAC) or Metamizole prior to venipuncture, may have falsely depressed results. Performed By: #### L 550.00927, L500.14477, L500.96866, L500.14572, L500.77840 #### [facility] [place] [address] Globulin (S) [Mass/Vol] 3.1 g/dL Normal 2.2-4.2 [facility] Comment on above: Performed By: #### L 550.24006, L500.93254, L500.17012, L500.33935, L500.67020 #### [facility] [place] [address] Glucose [Mass/Vol] 103 mg/dL High 70-100 [facility] Comment on above: Result Comment: 70-1 00- Normal Fasting; 100-125 Impaired Fasting; greater than 126 on more than one result- Diabetes. ADA guidelines. Results may be falsely elevated after the administration of Sulfapyridine. Results may be falsely depressed after the administration of Sulfasalazine. Performed By: #### L 550.59011, L500.74065, L500.47508, L500.14661, L500.34514 #### [facility] [address] [place] [address] Potassium [Moles/Vol] 3.9 mmol/L Normal 3.5-5.1 [facility] Comment on above: Performed By: #### L 550.67593, L500.35565, L500.79683, L500.81850, L500.35084 #### [facility] [address] [place] [address] Protein [Mass/Vol] 7.2 g/dL Normal 6.0-8.5 [facility] Comment on above: Performed By: #### L 550.73865, L500.75798, L500.86823, L500.38555, L500.85723 #### [facility] [place] [address] Sodium [Moles/Vol] 143 mmol/L Normal 136-145 [facility] Comment on above: Performed By: #### L 550.67855, L500.01901, L500.72330, L500.32581, L500.59183 #### [facility] [address] [place], [place] [address] Urea nitrogen [Mass/Vol] 21 mg/dL Normal 7-26 [facility] Comment on above: Performed By: #### L 550.71903, L500.47760, L500.50680, L500.53641, L500.80349 #### [facility] [address] [place], [place] [address] Urea nitrogen/Creatinine [Mass ratio] 31 mg/mg High 15-24 [facility] Comment on above: Performed By: #### L 550.45021, L500.94839, L500.79451, L500.23420, L500.01293 #### [facility] [address] [place] [address] GFR ESTon 06-10-2021 IF AMER Greater than 60 Normal [facility] Comment on above: Performed By: #### L 550.31031, L500.14858, L500.83907, L500.33578, L500.68662 #### [facility] [address] [place] [address] IF non-AFR AMER Greater than 60 Normal [facility] Comment on above: Performed By: #### L 550.43940, L500.99547, L500.20632, L500.65425, L500.57987 #### [facility] [address] [place], [place] [address] LIPIDon 06-10-2021 CHOL 216 MG/dL High 0-199 [facility] Comment on above: Performed By: #### L 550.17043, L500.51321, L500.87393, L500.52188, L500.76307 #### [facility] [address] [place] [id number] Cholesterol in HDL [Mass/Vol] 66 mg/dL Normal GREATER THAN 40 [facility] Comment on above: Result Comment: Mica ents receiving Metamizole prior to venipuncture, may have falsely depressed results. Performed By: #### L 550.79977, L500.55591, L500.52911, L500.69459, L500.98834 #### [facility] [address] [place] [address] Cholesterol in LDL [Mass/Vol] 117 mg/dL Normal [facility] Comment on above: Result Comment: ___C HOLESTEROL/HDL RATIO RISK___ CHD RISK = Total CHOL LDL HDL (CHOL/HDL) Recommended <200 <130 >40 <3.4 Borderline 200-239 130-159 3.4-4.99 High >240 >160 >5.0 Performed By: #### L 550.65971, L500.95706, L500.37859, L500.82128, L500.88717 #### [facility] [address] [place] [address] Triglyceride [Mass/Vol] 164 mg/dL High 30-149 [facility] Comment on above: Result Comment: Mica ents receiving either N-Acetylcysteine (NAC) or Metamizole prior to venipuncture, may have falsely depressed results. Performed By: #### L 550.98099, L500.23731, L500.06113, L500.04080, L500.09616 #### [facility] [place] [address] TSHon 06-10-2021 TSH 2.350 UIU/ML Normal 0.358-3.740 [facility] Comment on above: Result Comment: 3rd generation ultra sensitive TSH Performed By: #### L 550.71601, L500.12313, L500.27243, L500.91904, L500.86947 #### [facility] [address] [place] [address] [id number] 06-10-2021 [id number] 47.8 NG/ML Normal 30.0-100.0 [facility] Comment on above: Result Comment: Defi ciency Less than 20 ng/mL Insufficiency 20 - Less than 30 ng/mL Sufficiency 30 - 100 ng/mL Performed By: #### L 550.08809, L500.17287, L500.02511, L500.09904, L500.26331 #### [facility] [address] [place] [address] Vital Signs Date Time Vital Sign Value Performing Clinician Loreei taiwo 07-19-2025 10:24-0400 Body temperature 97.8 [degF] Kathy TEJEDA Work Phone: [facility] 07-19-2025 10:24-0400 Body weight 59.87 kg Kathy TEJEDA Work Phone: [facility] 07-19-2025 10:24-0400 Diastolic blood pressure 89 mm[Hg] Kathy TEJEDA Work Phone: [facility] 07-19-2025 10:24-0400 Heart rate 71 /min Kathy Jacobs PA Work Phone: [facility] 07-19-2025 10:24-0400 Respiratory rate 14 /min aKthy Jacobs PA Work Phone: [facility] 07-19-2025 10:24-0400 SaO2% (BldA) [Mass fraction] 96 % Kathy Jacobs PA Work Phone: [facility] 07-19-2025 10:24-0400 Systolic blood pressure 157 mm[Hg] Kathy Jacobs PA Work Phone: [facility] Encounters Encounter Date Encounter Type Care Provider Facility Start: 09-19-2025 [facility] Facility[facility] Start: 09-17-2025 ambulatory [facility] Facility:[facility] Start: 09-13-2025 End: 09-13-2025 ambulatory Mica Araujo Facility:[facility] Start: 08-07-2025 End: 08-07-2025 ambulatory ANIBAL TEJEDA Facility:[facility] Start: 08-07-2025 End: 08-07-2025 Patient encounter procedure ANIBAL TEJEDA [facility] Start: 08-01-2025 End: 08-01-2025 ambulatory ANIBAL TEJEDA Facility:[facility] Start: 08-01-2025 End: 08-01-2025 Patient encounter procedure ANIBAL TEJEDA [facility] Start: 07-19-2025 End: 07-19-2025 Patient encounter procedure Kathy TEJEDA -[facility] Work Phone: Start: 07-19-2025 End: 07-19-2025 ambulatory Kathy Jacobs -[facility] Start: 04-25-2025 End: 04-25-2025 ambulatory ZAINAB WILD MD Facility:[facility] Start: 04-25-2025 End: 04-25-2025 Patient encounter procedure ZAINAB WILD MD [facility] Start: 09-04-2024 End: 09-08-2024 ambulatory ANIBAL TEJEDA Facility:A Start: 07-12-2024 End: 07-14-2024 Documentation procedure Mammography Coordinator [facility] Department Start: 07-12-2024 End: 07-14-2024 Letter encounter Mammography Coordinator [facility] Start: 07-04-2024 ambulatory ANIBAL QUIÑONES Facility:1 [id number] Start: 07-04-2024 End: 07-04-2024 Subsequent hospital visit by physician Screen Mammo [facility] 1 RADIO [facility] Comment on above: Encounter for screen ing mammogram for malignant neoplasm of breast [Z12.31] Start: 08-13-2023 End: 08-18-2023 ambulatory ALINE STEWART MD Facility:A Start: 06-29-2023 End: 06-30-2023 ambulatory ANIBAL TEJEDA Facility:[facility] Start: 06-29-2023 End: 06-29-2023 Patient encounter procedure ANIBAL TEJEDA [facility] Start: 05-26-2023 End: 05-27-2023 ambulatory ANIBAL TEJEDA Facility:[facility] Start: 05-26-2023 End: 05-26-2023 Patient encounter procedure ANIBAL TEJEDA [facility] Start: 05-25-2023 End: 05-26-2023 ambulatory ZAINAB WILD MD Facility:[facility] Start: 05-25-2023 End: 05-25-2023 Patient encounter procedure ZAINAB WILD MD [facility] Start: 05-10-2023 End: 05-11-2023 ambulatory ANIBAL TEJEDA Facility:[facility] Start: 05-10-2023 End: 05-10-2023 Patient encounter procedure ANIBAL TEJEDA [facility] Start: 05-04-2023 End: 05-08-2023 ambulatory ANIBAL TEJEDA Facility:A Start: 11-05-2021 End: 11-05-2021 Subsequent hospital visit by physician Anibal Quiñones Work Phone: [facility] Comment on above: UTI Start: 08-20-2021 End: 08-20-2021 Patient encounter procedure SALLIE ROMAN MD [facility] Procedures Date Procedure Procedure Detail Performing Clinician [...] Start: 05-09-2027 Diabetes Screening Diabetes Screenin g [facility] Start: 07-09-2024 Covid-19 Vaccine ( season) Covid-19 Vaccine ( season) [facility] Start: 07-09-2024 Influenza vaccination Influenza Vacc ine (#1) [facility] Start: 11-08-2023 Advance Directive Discussion Advance Directive Discussion [facility] Start: 10-28-2020 Urine microalbumin profile DTa P,Tdap,Td Vaccine (2 - Td or Tdap) [facility] Start: 01-27-1962 Anxiety Screening Anxiety Screening [facility] Start: 01-27-1962 Depression Screening Depression Scre ening [facility] Payers Date Payer Category Payer Self-pay 2025 Private Health Insurance [id number] 2024 Private Health Insurance [id number] 2022 Medicare HUMANA MEDICARE HUMANA MEDICARE PPO [id number] 2022-Present [phone] [place] [address] PPO [id number] 2022 Private Health Insurance [id number] 1944 Unknown [id number] 1944 Unknown [id number] [id number] 1944 Unknown [id number] 2..840.1.697268.3.579.2.6 1944 Unknown [id number] 2.16840.1.526371.3.579.2.6 1944 Unknown [id number] 2..840.1.871192.3.579.2.6 1944 Unknown [id number] 2.16.840.1.593580.3.579.2.6 27 1944 Unknown [id number] 2.16.840.1.646210.3.579.2.6 27 1944 Unknown [id number] 2.16.840.1.730878.3.579.2.6 27 1944 Unknown [id number] 2.16.840.1.891674.3.579.2.6 27 1944 Unknown [id number] 2.16.840.1.166544.3.579.2.6 27 Unknown [id number] 2.16.840.1.621787.3.579.2.4 62 Unknown [id number] 2.16.840.1.492164.3.579.2.4 62 Unknown [id number] 2.16.840.1.814550.3.579.2.4 62 Unknown [id number] 2.16.840.1.705317.3.579.2.4 62 Social History Date Type Detail Facility Start: 02-13-2021 End: 04-19-2025 Never smoked tobacco (finding) [facility] Sex Assigned At [facility] Tobacco smoking status TXIS Tobacco smoking consumption unknown [facility] Start: 1945 Sex Assigned At Not on file [facility] Gender identity Not on file [facility] in Start: 12-16-2005 Sex Female (finding) [facility] Start: 1945 Sex Assigned At Female [facility] Clinical Notes 05-10-2023 to 08-01-2025 Note Date & Type Note Facility 08-01-2025 Note Exam Date Time Procedure Performing Provider Status 08/01/25 4:[address] Abd/Pelvis w/ IV Contrast Only BATSHEVA VERA, SHELLEY Wilkes DO; Auth (Verified) [id number] ORIGINAL EXAMINATION: CT OF THE ABDOMEN AND [...] 6:17:04 PM Ordering Provider: ANIBAL QUIÑONES RP [facility]09-24-2025 Note* Exam Date Time Procedure Performing Provider Status 08/01/25 2:19 PM XR Chest 2 Views JANNIE RUIZ MD; Aut h (Verified) [id number] ORIGINAL EXAMINATION: TWO XRAY VIEWS OF THE [...] 08/01/2025 4:51:23 PM Ordering Provider: ANIBAL QUIÑONES [facility]06-18-2025 Note* Exam Date Time Procedure Performing Provider Status 04/25/25 10:49 AM Echocardiogram, Adult - CV NICKOLAS DICKEY MD; Auth (Verified) [facility]10-30-2024 Note. MICRO - Microbiology PROCEDURE: Urine Culture [...] Locations *1: This test was performed at: [facility], [address] [place] [address], [id number]- , [facility] [id number] Note* Letter - Coordinator, Mammography - 07/12/2024 3:39 PM EDT July 13, 2024 PID: [id number] Stacy CrossSmith [address] [place] [address] Dear Ms. Olivo, We are pleased to [...] report will be kept on file at [facility] as part of your permanent medical record and are available for your continuing care. Thank you for allowing us to help in meeting your health care needs. Sincerely, Dr. Espinal Interpreting Radiologist [facility] (Normal over 40) [facility]09-04-2024 Miscellaneous Notes* Letter - Coordinator, Mammography - 07/12/2024 3:39 PM EDT July 13, 2024 PID: [id number] Stacy Puja [address] [place] [address] Dear Ms. Olivo, We are pleased to [...] report will be kept on file at [facility] as part of your permanent medical record and are available for your continuing care. Thank you for allowing us to help in meeting your health care needs. Sincerely, Dr. Espinal Interpreting Radiologist [facility] (Normal over 40) documented in this encounter[facility] Center08-[facility]24 History of Present illness Narrative* Vashti Epstein [...] PATIENT PRESENTS WITH AN IMPLANTABLE OR ATTACHED FLATBED OWNER OPERATOR: No RADIOLOGY DEPARTMENT: Mammography PERIPHERAL IV DATA: Not applicable SIGNED BY: RT Silvano([place]) July 04, 2024 11:26 AM documented in this encounterU[facility] Center08-27-2024 NoteHNO ID: [id number] Author: VASHTI EPSTEIN RT(R) Service: ? Author Type: Technologist Type: [...] PATIENT PRESENTS WITH AN IMPLANTABLE OR ATTACHED FLATBED OWNER OPERATOR: No RADIOLOGY DEPARTMENT: Mammography PERIPHERAL IV DATA: Not applicable SIGNED BY: RT Silvano(R) July 04, 2024 11:26 [facility] History of Present illness Narrative* Jia Ignacio RT(R) - 07/04/2024 10:30 AM EDT Radiology Service [...] PATIENT PRESENTS WITH AN IMPLANTABLE OR ATTACHED FLATBED OWNER OPERATOR: No RADIOLOGY DEPARTMENT: Bone Density PERIPHERAL IV DATA: Not applicable SIGNED BY: RT Kirsten(R) July 04, 2024 10:56 AM documented in this encounterUc Medical Center08-27-2024 NoteHNO ID: [id number] Author: JIA IGNACIO RT(R) Service: ? 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 MICRO - Microbiology PROCEDURE: Urine Culture [*1] SOURCE: Urine BODY SITE: COLLECTED DATE/TIME: 08/13/2023 15:30 EDT RECEIVED DATE/TIME: 08/13/2023 19:40 EDT START DATE/TIME: 08/13/2023 19:41 EDT FREE TEXT SOURCE: FINAL REPORTS Final Report [] Verified Date/Time/Personnel: 08/15/2023 08:50 EDT 10,000 - 50,000 cfu/ml Escherichia coli ESBL Extended-Spectrum B-Lactamase isolate may be clinically resistant to therapy with Penicillins, Cephalosporinsor Aztreonam despite apparent "in vitro" susceptibility to some of these agents. Use [...] Cefazolin >16 Resistant Cefotaxime >32 Suspected ESBL Cow Tester Ceftriaxone >32 Suspected ESBL Cow Tester Cefuroxime >16 Resistant Ciprofloxacin 0.5 Intermediate Ertapenem <=0.5 Susceptible Gentamicin <=2 Susceptible Imipenem <=1 Susceptible Levofloxacin <=0.5 Susceptible Meropenem <=1 Susceptible Minocycline <=4 Susceptible Nitrofurantoin <=32 Susceptible Trimethoprim/ <=0.5/9.5 Susceptible Sulfa Performing Locations *1: This test was performed at: [facility], [address] [place] [address], [facility] , [facility] ([place])06-29-2023 Note ORIGINAL EXAMINATION: BONE DENSITOMETRY 06/29/2023 10:52 [...] Sign Date: 06/29/2023 11:44:12 AM Ordering Provider: [facility] Note ORIGINAL EXAMINATION: MRI OF THE RIGHT [...] of medial femorotibial recess on coronal image . Inner free edge fraying is also present [...] Date: 05/26/2023 9:58:31 AM Ordering Provider[facility] Note* Exam Date Time Procedure Performing Provider Status 05/25/23 1:05 PM Echocardiogram, Adult (AOH) Auth (Verified) [facility] 07-04-2023 Note ORIGINAL EXAMINATION: THREE XRAY VIEWS [...] Sign Date: 05/11/2023 2:38:36 AM Ordering Provider: [facility]07-04-2023 Note ORIGINAL EXAMINATION: THREE XRAY VIEWS [...] Sign Date: 05/11/2023 2:38:36 AM Ordering Provider: [address]03-2023 Note ORIGINAL EXAMINATION: THREE XRAY VIEWS OF [...] Sign Date: 05/11/2023 2:38:36 AM Ordering Provider: [place] [address]-03-2023 Note ORIGINAL EXAMINATION: THREE XRAY VIEWS OF [...] Date: 05/11/2023 2:38:36 AM Ordering Provider: [facility] note No data available for this section [facility] Evaluation + Plan note Future Appointments Appointment Date:05/26/2023 03:30:00 PM Scheduled Provider: Location:[facility] Appointment Type:MRI Knee w/o Contrast Right [facility] Evaluation noteNo assessment information available [facility] Work Phone: Hospital Discharge instructions No data available for this section [facility] Progress note No data available for this section [facility] Reason for referral (narrative)No reason for referral information availableQueen [facility] The Valley [facility] Work Phone: Summary Purpose Family History No [...] or prosecute any alcohol or drug abuse patient.[facility] CenterIn the event this information is protected by the Federal Confidentiality of Alcohol and Drug Abuse Patient Records regulations: The Federal rules restrict any use of the information to criminally investigate or prosecute any alcohol or drug abuse patient.[facility] CenterIn the event this information is protected by the Federal Confidentiality of Alcohol and Drug Abuse Patient Records regulations: The Federal rules restrict any use of the information to criminally investigate or prosecute any alcohol or drug abuse patient.[facility] CenterIn the event this information is protected by the Federal Confidentiality of Alcohol and Drug Abuse Patient Records regulations: The Federal rules restrict any use of the information to criminally investigate or prosecute any alcohol or drug abuse patient.[facility] INFORMATION SOURCE (unrecogn ized section and content) DATE CREATED AUTHOR 03/21/2022 [facility] Gabriella Pillai DATE CREATED AUTHOR AUTHOR'S OZZY ATMAGDALENA 09/11/2023 [facility] ([place]) DATE CREATED AUTHOR AUTHOR'S ORGANIZ ATION 07/15/2024 [facility] DATE CREATED AUTHOR AUTHOR'S ORGANIZ ATION 07/19/2024 [facility] DATE CREATED AUTHOR AUTHOR'S ORGANIZ ATION 09/20/2024 [facility] DATE CREATED AUTHOR AUTHOR'S ORGANIZ ATION 08/10/2025 [facility] DATE CREATED AUTHOR AUTHOR'S ORGANIZ ATION 09/18/2025 [facility] Patient Care team informatio n (unrecognized section and content) 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 [facility] [employer] [facility]. provides no warranty or guarantee of the accuracy or completeness of information in this document.
[2025-09-19] MEDS: Lactated Ringers 1,000 ML 15 ML IV (06:15)
--- NOTE | 2025-09-19 06:53 | PCM.PRE.AN2 ---
ASA Classification* ASA Classification ASA Classification: 3 (h/o PE, h/o "valve insuffiency" -- pt reports having trivial insuffiency of MV or AV, follows up in [place]. Patient endorses white coat HTN, states her BP readings at home are always 130/70. ) Assessment & Plan Anesthesia* Anesthesia Assessment Anesthesia Assessment: Discussed sedation and/or anesthesia options, risks, benefits, and alternatives with patient/parents/legal guardian/POA. Questions invited. The patient/parents/legal guardian/POA seems to understand and agrees to proceed with anesthesia plan. Reviewed the physical assessment, medical history, allergy history and patient home medications list prior to surgery/procedure/anesthetic and documented any changes. Performed airway and anesthesia risk assessments. Anesthesia Type Anesthesia Type: MAC History Source History Obtained from:: Patient and Chart Anesthesia Focused Assessment* Temperature: 98.8 F Pulse Rate: 69 Blood Pressure: 186/83 Respiratory Rate: 16 Pulse Ox: 97 Airway Assessment Mouth opens: >3 cm Mallampati Score: II Neck Range of motion (ROM): Full ROM Labs Anesthesia Preop lab: CBC WBC, (4.4-11.0) 5.1 K/mm3 09/17/25, 07:03 RBC, (4.2-5.4) 4.43 M/mm3 09/17/25, 07:03 Hgb, (12.0-15.0) 13.4 g/dL 09/17/25, 07:03 Hct, (37-47) 41.3 % 09/17/25, 07:03 Plt Count, (150-450) 264 K/mm3 09/17/25, 07:03 CHEMISTRY Potassium, (3.3-5.1) 4.2 mmol/L 09/17/25, 07:03 Sodium, (133-145) 142 mmol/L 09/17/25, 07:03 BUN, (4-19) 21 mg/dL H 09/17/25, 07:03 Creatinine, (0.70-1.20) 0.77 mg/dL 09/17/25, 07:03 Glucose, (70-99) 100 mg/dL H 09/17/25, 07:03 COAG Pre-Assessment Diagnosis/Proposed Procedure Planned Operative Procedure(s): HYSTEROSCOPY, D&C, POSSIBLE INTRAUTERINE DEVICE INSERTION Anesthesia History 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 When Was Last Pacemaker Check QUESTION #4 FULL TEXT: You/Your Family Experience fever (hyperthermia) with Anesthesia Last Oral Intake Last Oral intake: Last Oral Intake NPO since 19:30 09/19/25 06:44 Meds taken in AM with sips of No 09/19/25 06:44 water? Meds patient instructed to take am of surgery PONV PONV - email campaign manager: PONV - email campaign manager Female Yes 09/17/25 12:05 HX of Motion Sickness No 09/17/25 12:05 HX of N/V After Surgery No 09/17/25 12:05 Non-Smoker Yes 09/17/25 12:05 Duration of Surgery greater No 09/17/25 12:05 than 60 minutes Number of Risk Factors 2 09/17/25 12:05 PONV Score Moderate Risk 09/17/25 12:05 Height & Weight Height & Weight: Anesthesia: Height & Weight Height 5 ft 1 in 09/19/25 06:44 Weight: 60 kg 09/19/25 06:44 Body Mass Index (BMI) 25.0 09/19/25 06:44 Respiratory Assessment Respiratory Assessment - email campaign manager: Respiratory Tract Infection Hx - email campaign manager Hx Respiratory Tract Infection No 09/17/25 12:05 STOP Sleep Apnea STOP Sleep Apnea - email campaign manager: STOP Sleep Apnea - email campaign manager Hx Hypertension No 09/17/25 12:05 Hx Sleep Apnea No 09/17/25 12:05 CPAP BIPAP Do you snore loudly (louder No 09/17/25 12:05 than talking or can be heard Do you often feel tired/ No 09/17/25 12:05 fatigued/ sleepy during daytime? Has anyone observed you stop No 09/17/25 12:05 breathing during sleep? STOP Results Negative 09/17/25 12:05 QUESTION #5 FULL TEXT : Do you snore loudly (louder than talking or can be heard through closed doors)? 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 Specify any problems Hx of Preganancy in last 3 No 09/17/25 12:05 Months Nurse Filling Out Transfusion JZOLLSHRUTI 09/17/25 12:05 & Questions: Date: 09/17/25 09/17/25 12:05 Time: 12:06 09/17/25 12:05 Patient unable to answer at this time (ie. confused, unrespo /Reproduction History /Reproductive History - email campaign manager: /Reproductive Hx- email campaign manager Hx Now No 09/17/25 12:05 Gestational Age (in weeks): EDC: Hx Hx Para Hx Section SAB No 09/17/25 12:05 Does the father of the baby or his family experience fever w Father of the baby Malignant Hypertension history comment Active Medications Active Medications: Current Medications Generic Name Dose Route Start Last Admin Trade Name Freq PRN Reason Stop Dose Admin Lactated Ringer's 1,000 mls @ 15 mls/hr 09/19/25 06:15 09/19/25 06:15 IV 15 mls/hr .Q48H YAA Administration Levonorgestrel 1 each 09/19/25 08:45 Levonorgestrel Iud (Liletta) INTRA-UTER 09/19/25 08:46 X1 ONE PFSH Medical History (Updated 09/17/25 @ 12:05 by Sylvia Viera) Wears glasses Wears partial dentures Non-smoker Ganglion cyst Heart valve problem Tumors GERD (gastroesophageal reflux disease) Osteopenia Low calcium levels Glaucoma Gallstones Carpal tunnel syndrome Cataracts, bilateral Breast lump Pulmonary embolism UTI (urinary tract infection) Ankle fracture Arthritis Hx of heart valve insufficiency Home Medications Medication Instructions Recorded Last Taken Type calcium 300 mg-D3 20 mcg-magnesium 1 tab PO QDAY 09/13/25 Unknown History 25 mg-coppr 0.5 wq-gmid-fddw tablet iron 1 tab PO .every other day 09/13/25 Unknown History latanoprost 0.005 % eye drops 1 drp ophthalmic (eye) QPM 09/13/25 Unknown History oqtdilfu-cthkuqdr-oljix acid 240 1 tab PO .QD 09/13/25 Unknown History mcg-vit K1 150 mcg-herb 357 tablet (Alive Women's 50 Plus Ultra Multivitamin) redimind natural cognitive enhancer 1 tab PO .QD 09/13/25 Unknown History turmeric 400 mg capsule 1,000 mg PO .QD 09/13/25 Unknown History Allergy/AdvReac Type Severity Reaction Status Date / Time No Known Allergies Allergy Verified 09/19/25 06:41 Family History (Updated 09/13/25 @ 15:18 by Kassandra Jean) Mother Anemia Arthritis Glaucoma Brother Heart disease Hypertension Surgical History (Updated 09/17/25 @ 12:05 by Sylvia Viera) History of colonoscopy with polypectomy History of bladder suspension procedure History of left oophorectomy Hx of removal of ovary Social History (Updated 09/13/25 @ 15:36 by Kassandra Jean) household members: spouse Smoking Status: Never smoker alcohol intake: current alcohol intake frequency: holidays/special occasions only substance use type: does not use what type of physical activity do you participate in: walking and swimming additional social history: Merle Review of Systems (Anesthesia) ROS Narrative System reviewed and no additional complaints, except as documented. Physical Exam Const alert, oriented x3 and average body habitus Resp normal respiratory effort, normal air movement and clear to auscultation bilaterally Cardio regular rate, regular rhythm and no murmurs; Negative for diaphoretic
--- NOTE | 2025-09-19 07:30 | EMB_PTH ---
PATIENT: MARIMAR OLIVO [place] [facility] [place][id number] AGE/SX: 80/F ROOM: RE09/19/[address]: Dr. Mica Araujo MD : 1945 BED: DIS: 09/19/2025 SPEC #: [id number] RECD: 09/19/25 09:02 STATUS: STONEY MEET #: [id number] ELIA: 09/19/25 07:[address]: Mica Araujo DEPT: SURGICAL PATHOLOGY RECD BY: Markel Blevins Tissues: A - Endometrium, NOS Procedures: Surgery Specimen Level IV HEADER OPERATION: Hysteroscopy, D&C, IUD insertion PRE-OP DIAGNOSIS: Thickened endometrium TISSUE SUBMITTED: A- Endometrial polyp MICROSCOPIC DIAGNOSIS A. Endometrium, hysteroscopy, dilation and curettage: - Endometrial polyps with cystic atrophy, benign MICROSCOPIC DESCRIPTION Slides are reviewed. GROSS DESCRIPTION A. Received in formalin labeled with the patient's name and date of . Designated as " endometrial polyp" is a 3.9 x 1.3 x 0.4 cm aggregate of vasquez-pink to red irregular tissue fragments. Entirely submitted in 2 cassettes. CA 09/19/2025 CPT:14321
--- NOTE | 2025-09-19 07:33 | HP.PCM_ITS ---
History and Physical Date of Admission: 09/19/25 Intake Vital Signs 09/13/2515:36 Height 5 ft 1 in Weight: 132 lb 6 oz BMI 25.0 BP 178/96 H Intake Visit Reasons: Surgical Consult (PPA) *per Rn Clinical Resource Required: No Is patient in pain?: No Allergies No Known Allergies Allergy (Verified 09/13/25 15:12) Medications Medication Instructions Recorded Confirmed Type calcium 300 mg-D3 20 mcg-magnesium 1 tab PO QDAY 09/13/25 09/13/25 History 25 mg-coppr 0.5 hm-migu-ygll tablet iron PO .every other day 09/13/25 History latanoprost 0.005 % eye drops 1 drp ophthalmic (eye) QPM 09/13/2505/02 History atxnveyj-phfsylna-jqqlr acid 240 tab PO 09/13/25 09/13/25 History mcg-vit K1 150 mcg-herb 357 tablet (Alive Women's 50 Plus Ultra Multivitamin) redimind natural cognitive enhancer PO 09/13/25 History turmeric 400 mg capsule mg PO 09/13/25 09/13/25 History Is last menstrual period known: No Post menopausal: Yes Patient : No : No PFS Medical History (Updated 09/13/25 @ 16:[address] Mica Araujo MD) Ganglion cyst Heart valve problem Tumors GERD (gastroesophageal reflux disease) Osteopenia Low calcium levels Glaucoma Gallstones Carpal tunnel syndrome Cataracts, bilateral Breast lump Pulmonary embolism UTI (urinary tract infection) Ankle fracture Arthritis Hx of heart valve insufficiency Surgical History (Updated 09/13/25 @ 15:25 by Kassandra Jean) History of bladder suspension procedure History of left oophorectomy Hx of removal of ovary Family History (Updated 09/13/25 @ 15:18 by Kassandra Jean) Mother Anemia Arthritis Glaucoma Brother Heart disease Hypertension Social History (Updated 09/13/25 @ 15:36 by Kassandra Jean) household members: spouse Smoking Status: Never smoker alcohol intake: current alcohol intake frequency: holidays/special occasions only substance use type: does not use what type of physical activity do you participate in: walking and swimming additional social history: [place] HPI Surgical Consult (PPA) *per Details: HPI: The patient is an 80-year-old female with a history of endometrial thickening, pulmonary embolism, and heart valve problem presenting for evaluation of endometrial thickening. Endometrial Thickening - Referred for evaluation of endometrial thickening. - Recent sonogram ordered by primary care provider, NIKHIL Acosta, revealed thickening of the endometrial lining. - Denies any vaginal bleeding or abnormal discharge. - Denies any bowel complaints, including nausea, vomiting, bloating, diarrhea, or constipation. - Denies any bladder issues, including burning on urination, pain on urination, or leaking. - Denies any swelling in the legs. 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 - Denies any chest pain or shortness of breath. - Denies any history of blood clotting disorders. Past Medical History - Endometrial Thickening - Pulmonary Embolism - Heart Valve Problem - Ankle Fracture Past Surgical History - Oophorectomy: One ovary removed due to benign tumors. - - D&C: Multiple procedures during infertility treatment. Obstetric History - A0 - Three children: One adopted, one vaginal delivery, one . Family History - Denies family history of similar benign tumors. 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 - Spends 6 months of the year in [place]. 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 - Recommended hysteroscopic assessment and dilation and curettage (D&C) under sedation for both diagnostic and therapeutic purposes; any abnormal tissue encountered will be resected and sent for pathological evaluation, including an intraoperative frozen section if feasible. - Discussed possibility of endometrial hyperplasia or precancerous lesion; if indicated by frozen section findings, plan to insert a levonorgestrel-releasing intrauterine device to deliver localized progesterone therapy and reduce risk of systemic side effects, particularly given the patient’s clotting history. - EKG and preoperative lab work will be obtained for surgical clearance. - Advised that final pathology results generally return within one to two weeks; will expedite surgery scheduling to accommodate patient’s pending travel plans. - Explained risks and benefits of procedure, including anesthesia-related risks, bleeding, infection, and the rare potential need for additional intervention if malignancy is identified. - Patient voiced understanding of the rationale, procedure details, and timing, and agreed to proceed. # Endometrial polyp (N84.0): - See “Thickened endometrium” above for treatment/management plan. # Personal history of pulmonary embolism (Z86.711): - Resolved, no current anticoagulation therapy; no evidence of an underlying chronic clotting disorder. - Aware that systemic hormonal treatments may increase thrombosis risk; will address via localized intrauterine progesterone therapy if indicated by pathology. Patient Instructions: - Expect a call from our certified surgical first assistant to arrange your endometrial D&C procedure to remove uterine polyps and send tissue for evaluation. - Complete a preoperative EKG and blood tests as directed before your D&C to ensure it’s safe to proceed. - Attend the colonoscopy appointment already arranged in [place] following your positive Cologuard screening. - Preliminary (frozen section) pathology results may be available the same day as your D&C; full tissue results typically return in 1–2 weeks. - If the final pathology shows pre-cancerous changes, a hormone-releasing IUD can be placed during your procedure, remain in place for six months, and then be removed in the office after you return from [place]. Exam Const General: cooperative, healthy appearing, comfortable and no acute distress Orientation: alert HENMT Head: normal to inspection and normocephalic Ears: hearing grossly normal bilaterally and external ears normal Nose: external nose normal and nares normal Face and sinus: normal facial exam Neck Neck: normal visual inspection and no lymphadenopathy Thyroid: thyroid normal Chest Chest palpation & inspection: normal inspection of the chest Resp Effort & Inspection: normal respiratory effort Auscultation: clear to auscultation bilaterally Cardio Rate: regular rate Rhythm: regular rhythm Heart Sounds: S1 normal and S2 normal GI Inspection: normal to inspection and non-distended Palpation: soft and no hepatosplenomegaly Musc Other: gross motor intact no deficits, full bilateral strength Skin General: no rashes or lesions noted Neuro General: patient alert, patient awake, moves all extremities and no focal motor deficits Motor: muscle tone normal throughout Extrem General: normal to inspection and no pedal edema Psych Appearance: grossly normal Mental Status: mental status grossly normal Affect: normal affect Speech and Movement: speech and movement normal Coding Level of Care Code Off vis,new,level 4 Diagnoses Thickened endometrium R93.89 Assessment and Plan Assessment and Plan (1) Thickened endometrium: Status: Acute Comment: d and c hysteroscopy symphion possible IUD - will not do frozen section, not recommended by pathologist UPDATE- I have seen the patient and performed any clinically relevant updates to the history and physical exam. Mica Araujo MD
[2025-09-19] MEDS: Lactated Ringers 500 ML IV (07:34)
[2025-09-19] MEDS: Lidocaine 1% (5 ml sdv) 5 ML Vial IV (07:38)
[2025-09-19] MEDS: Midazolam 2 MG/2 ML Syringe IV (07:43)
[2025-09-19] MEDS: fentaNYL 100 MCG/2 ML Ampul IV (07:57)
[2025-09-19] MEDS: Levonorgestrel IUD (Liletta) 1 EACH INTRA-UTER (07:58)
--- NOTE | 2025-09-19 08:10 | PCM.OPRPT ---
Multi Select Codes Urinary/Genital Urinary/Genital CPT Codes: 94274 Hysteroscopy, Polypectomy, Symphion Operative Report (Standard) Operative Information Date of Procedure: 09/19/25 Pre-Operative Diagnosis: thickened endometrium Post-Operative Diagnosis: same Surgery/Procedure Performed: dilation and curettage hysteroscopy symphion polypectomy IUD insertion staff cytotechnologist: No Type of Anesthesia: IV Sedation RN Documented Start/Stop Times: Operation Date: 09/19/25 07:30 Case Time Into Pre-Op 09/19/25 06:06 Out of Pre-Op 09/19/25 07:30 Anesthesia Start 09/19/25 07:34 Into Room 09/19/25 07:34 Procedure Start 09/19/25 07:54 Procedure End 09/19/25 08:08 Procedure Start Time: 07:54 Procedure Stop Time: 08:08 Select all DRAINS/GRAFTS/IMPLANTS that apply: None Estimated Blood Loss: 25 Specimen collected: Yes Description of specimen(s) removed: endometrial curretings and polyp Description of surgery: Patient was prepped and draped in a normal sterile fashion under MAC anesthesia. A weighted speculum was placed in the vagina and the anterior lip of the cervix was grasped with a single-tooth tenaculum. A paracervical block was placed with 1% lidocaine. Cervix was progressively dilated to allow passage of a 5 mm hysteroscope. The lining was fully visualized and noted to have two polypoid gorwths present, suspicious appearance so decision was made for full resection and iud insertion . Uterine sounded to 8 cm. Using the symphion device, the polypoid growths were progressively removed without complications, some calcifications noted. Direct visual curettage was performed using the device , and all specimens were sent to pathology. then the liletta device deployed without complications, strings cut. All instruments were removed from the vagina and excellent hemostasis was noted. Patient was awoken and taken to recovery in stable condition. Surgical Findings: polyps present Complications Complications: No
--- NOTE | 2025-09-19 08:25 | PCM.POST.ANE ---
Anesthesia: Postop Eval I Current Vital Signs Temperature: 97.2 F Pulse Rate: 75 Blood Pressure: 168/93 Respiratory Rate: 14 Pulse Ox: 94 Oxygen Delivery Method: Room Air Assessment Airway patent: Yes Spontaneous unlabored respirations: Yes Mental status: Awake and Calm nausea: No Vomiting: No Anesthesia Complication: No Fluid Hydration Crystalloid volume administer (ml): 500 Total IV fluid infused: 500 Progress Note Anesthesia document: Postop Eval 1 completed: Yes
--- NOTE | 2025-09-19 09:00 | PCM.DC ---
Discharge Instructions DC O2, CPAP, BIPAP needs Home O2 Discharge instructions: No Dressing / Incision Discharge Activity: Return to Normal Activity, May Shower and May Take a Tub Bath (after 1 week) May resume sexual activity in: 1-2 weeks Weight Bearing Status: Weight bearing as tolerated Lifting Restrictions: none Dressing / Incision Call your doctor if you observe: Fever of 101 or Higher, Using more than 1 pad per hour, Shortness of breath and Uncontrolled pain Follow Up Care Please Follow Up With: Mica Araujo MD When: Call [phone] to schedule appointment. Test Results: Test results from this visit will be discussed in further detail at your follow-up appointment, if applicable. Discharge Plan Admission Attending Provider: Mica Araujo Primary Care Provider: SHADE QUIÑONES Instructions Print Language: [place] Island[place] Discharge Orders/Prescriptions Prescriptions: No Action latanoprost 0.005 % drops 1 drp ophthalmic (eye) QPM Ca carb-D3-mag cp-dtp-edqk-Zn 300 mg-20 mcg- 25 mg-0.5 mg tablet 1 tab PO QDAY turmeric 400 mg capsule 1,000 mg PO .QD Alive Women's 50 Plus Ultra MV 240-150 mcg tablet 1 tab PO .QD iron 1 tab PO .every other day redimind natural cognitive enhancer 1 tab PO .QD Referrals / Follow Up: SHADE QUIÑONES [Other] Disposition Disposition (needs filled in before D/C Order can be placed): Home, Self Care
--- NOTE | 2025-09-19 10:38 | POSTOPAN2_ITS ---
Anesthesia Postop Eval I Sum Postop Eval Completion status Anesthesia document: Postop Eval 1 completed: Yes Anesthesia Postop Eval I Summary Anesthesia Postop Eval I Summary: Anesthesia Postop Eval I: Assessment Summary Airway patent Yes 09/19/25 08:25 [email or web address] Spontaneous unlabored Yes 09/19/25 08:25 [email or web address] [email or web address] respirations Mental status Awake,Calm 09/19/25 08:25 DENSITOMETER [email or web address] nausea No 09/19/25 08:25 DENSITOMETER [email or web address] Vomiting No 09/19/25 08:25 DENSITOMETER [email or web address] Anesthesia Postop Eval I: Fluid Summary Crystalloid volume administer 500 09/19/25 08:25 DENSITOMETER [email or web address] (ml) Colloids volume administered ( ml) Blood Product volume administered (ml) Total IV fluid infused 500 09/19/25 08:25 DENSITOMETER [email or web address] Anesthesia Postop Eval I: Summary Notes Anesthesia Complication No 09/19/25 08:25 DENSITOMETER [email or web address] Anesthesia Complication Comment: Post-operative progress note Anesthesia: Postop Eval II Evaluation Mental status: Awake Pain Level: 0 nausea: No Vomiting: No Complications Anesthesia Complication: No
--- NOTE | 2025-09-19 10:38 | PCM.POSTANE2 ---
Anesthesia Postop Eval I Sum Postop Eval Completion status Anesthesia document: Postop Eval 1 completed: Yes Anesthesia Postop Eval I Summary Anesthesia Postop Eval I Summary: Anesthesia Postop Eval I: Assessment Summary Airway patent Yes 09/19/25 08:25 [email or web address] Spontaneous unlabored Yes 09/19/25 08:25 [email or web address] respirations Mental status Awake,Calm 09/19/25 08:25 [email or web address] nausea No 09/19/25 08:25 BAGGAGE HANDLER.[email or web address] Vomiting No 09/19/25 08:25 BAGGAGE [email or web address].[email or web address] Anesthesia Postop Eval I: Fluid Summary Crystalloid volume administer 500 09/19/25 08:25 BAGGAGE [email or web address].GDOTT (ml) Colloids volume administered ( ml) Blood Product volume administered (ml) Total IV fluid infused 500 09/19/25 08:25 BAGGAGE HANDLER.GDOTT Anesthesia Postop Eval I: Summary Notes Anesthesia Complication No 09/19/25 08:25 BAGGAGE [email or web address].[email or web address] Anesthesia Complication Comment: Post-operative progress note Anesthesia: Postop Eval II Evaluation Mental status: Awake Pain Level: 0 nausea: No Vomiting: No Complications Anesthesia Complication: No
== END 2025-09-19 10:12 | disposition home or self-care (01) ==
LOC: SDC 06:03 → AC 06:03
PROVIDERS: Referring Provider Obstetrics & Gynecology; Visit Provider Obstetrics & Gynecology
DX: N84.0 Polyp of corpus uteri (principal); K21.9 Gastro-esophageal reflux disease without esophagitis; Z86.711 Personal history of pulmonary embolism; Z30.430 Encounter for insertion of intrauterine contraceptive device
CPT/HCPCS: 58558; 58300; 00952; 88305; J2405